=== PATIENT | female | born 1960 | race Caucasian/White ===

== ENCOUNTER → 2018-02-03 | Outpatient (CLI) | payer MEDICARE, MEDICAID ==
[~2018-02-03] MED LIST: ACHD5005 PO; AGM875T PO; ARIP5TAB13 PO; ASP81TEC PO; CHOL2000 PO; CLON2TAB3; CLON2TAB3 PO; CRANBERRY 8400MG PO; CYCL10TA45 PO; DIPH50CA33 PO; EZET10TA23 PO; FEXO60TA; GBPN600T PO; HYDR-34 PO; HYDR-3720 PO; HYDR1TAB66 PO; HYDR25CA PO; LISI5TAB PO; LORA10TA2 PO; LVT.05T PO; MELO-195; MELO-198 PO; METF-380 PO; METR500T; MIRA25TA PO; MIRA50TA PO; MIRT15TA6 PO; MIRT30TA6 PO; MMT17NA NSEACH; MTF500T; NIAC750T PO; NITR-65 PO; OMEG1CAP74 PO; PGLT30T PO; POTA10TA17 PO; PREG150C; RISP0.5T24; SIMV20TA3; SIMV40TA4 PO; TPR100T; TRAM50TA2; TRAZ50TA67; VENL37.563 PO; VENL75TA74 PO
--- NOTE | 2018-02-03 14:14 | Diagnostic Imaging Report ---
PROCEDURE: US Thyroid. TECHNIQUE: Multiple real-time grayscale images were obtained of the thyroid in various projections. INDICATION: Thyromegaly. FINDINGS: The right lobe of the thyroid measures 3.4 x 1.6 x 1.3 cm. The left lobe measures 3.4 x 1.5 x 1.1 cm. There is a solid isoechoic nodule in the inferior aspect of left lobe measuring 0.7 x 0.8 x 0.6 cm. No other discrete solid or cystic masses are appreciated. IMPRESSION: Small isoechoic nodule in the inferior aspect of the left lobe of thyroid likely an adenoma. Dictated by: Dictated on workstation # [id number]
== END ==
LOC: RAD 12:41
PROVIDERS: ATTEND Nurse Practitioner Family
DX: E04.0 Nontoxic diffuse goiter (principal)
CPT/HCPCS: 76536

== ENCOUNTER → 2018-05-15 | Outpatient (CLI) | payer MEDICARE, MEDICAID ==
--- NOTE | 2018-05-15 13:57 | Diagnostic Imaging Report ---
PROCEDURE: US Thyroid. TECHNIQUE: Multiple real-time grayscale images were obtained of the thyroid in various projections. INDICATION: Thyroid nodule. The study is performed for followup. COMPARISON: Correlation is made with prior thyroid ultrasound from 02/03/2018. FINDINGS: Right lobe of the thyroid measures 3.7 x 1.4 x 1.2 cm, and the left lobe measures 3.3 x 1.2 x 1.3 cm. Previously noted circumscribed nodule in the inferior left lobe of the thyroid is again noted measuring approximately 6 mm x 8 mm. This is stable. No new thyroid mass is seen. IMPRESSION: Stable subcentimeter nodule in the inferior left lobe of the thyroid when compared with examination three months earlier. Followup in six months could be performed to confirm stability. Dictated by: Dictated on workstation # [id number]
== END ==
LOC: RAD 12:23
PROVIDERS: ATTEND Nurse Practitioner Family
DX: E04.1 Nontoxic single thyroid nodule (principal)
CPT/HCPCS: 76536

== ENCOUNTER → 2018-10-10 | Outpatient (CLI) | payer MEDICARE, MEDICAID ==
[~2018-10-10] VITALS: Ht 157.5 cm; Wt 86.2 kg
[~2018-10-10] MED LIST changes: +CATHETER FLUSH 10 ML SYR IV PRN; +REGADENOSON 0.4 MG/5 ML SYR (LEXISCAN) IV ONE
[2018-10-10 08:00] VITALS: BP 132/77
[2018-10-10 08:08] VITALS: BP 141/64
[2018-10-10 08:09] VITALS: BP 124/68
--- NOTE | 2018-10-10 13:01 | STRESS TEST ---
DATE OF SERVICE: 10/10/2018 NUCLEAR MYOVIEW REPORT REFERRING PHYSICIAN: Timo Patel DO. SUMMARY: The patient was injected with 10.73 mCi of technetium-99 Myoview and the resting images were obtained. With peak stress level, the patient was injected with 31.0 mCi of technetium-99 Myoview and the stress images were acquired. The resting and stress images were reviewed and compared in the short axis, horizontal long axis, and vertical long axis views. Review of the images showed breast attenuation with typical female pattern. No significant ischemia or infarction was noted. SSS is 3, SDS 3, and TID value 0.87. On the gated images, the left ventricle appeared to be in normal size with mild hypokinesia at the inferior wall. Calculated ejection fraction 52%. CONCLUSION: 1. Breast attenuation with typical female pattern. Mild decreased uptake at the anterior apical segment with subtle reversibility, no significant ischemia or infarction was noted. 2. Normal left ventricular size with mild hypokinesia noted at the inferior wall. Calculated ejection fraction is 52%. Job ID: [id number] DocumentID: [id number] Dictated Date: 10/10/2018 09:56:14 Hay Rake Operator Date: 10/10/2018 13:01:09 Dictated By: ARCENIO RICE MD
== END ==
LOC: CARD 06:39
PROVIDERS: ATTEND Internal Medicine
DX: R07.9 Chest pain, unspecified (principal); R53.83 Other fatigue
CPT/HCPCS: 78452; 93017

== ENCOUNTER 2018-11-13 13:56 | Outpatient (CLI) | payer MEDICARE, MEDICAID ==
[~2018-11-13 13:56] MED LIST changes: -CATHETER FLUSH 10 ML SYR IV PRN; -REGADENOSON 0.4 MG/5 ML SYR (LEXISCAN) IV ONE
== END 2018-11-13 14:30 | disposition home or self-care (01) ==
LOC: SLEEP 13:56
PROVIDERS: ATTEND Nurse Practitioner Family
DX: G47.33 Obstructive sleep apnea (adult) (pediatric) (principal); G47.10 Hypersomnia, unspecified; R06.83 Snoring

== ENCOUNTER → 2018-12-25 | Outpatient (CLI) | payer MEDICARE, MEDICAID ==
--- NOTE | 2018-12-25 16:53 | Diagnostic Imaging Report ---
INDICATION: Fall. Wrist pain. COMPARISON: None. FINDINGS: Four radiographic views of the right wrist were obtained. There is chronic appearing deformity of the distal radius consistent with old healed fracture. There is angulation of the distal radius with the apex projecting anteriorly, also chronic in appearance. No acute appearing fracture or dislocation of the right wrist is identified. Osseous structures otherwise appear intact. Joint spaces are maintained, although there is widening of the scapholunate joint space. No unexpected radiopaque foreign bodies are seen. IMPRESSION: 1. No radiographic evidence of acute fracture or dislocation of the right wrist. 2. Chronic appearing deformity of the distal radius consistent with probable old healed fracture. 3. Abnormal widening of the scapholunate joint space suggestive of underlying ligamentous injury. Dictated by: Dictated on workstation # [id number]
== END ==
LOC: RAD 10:24
PROVIDERS: ATTEND Nurse Practitioner Family
DX: J30.9 Allergic rhinitis, unspecified (principal); M25.531 Pain in right wrist; W19.XXXA Unspecified fall, initial encounter
CPT/HCPCS: 73110

== ENCOUNTER 2019-09-23 06:07 | Outpatient (CLI) | payer MEDICARE, MEDICAID ==
[~2019-09-23] VITALS: Ht 157.5 cm; Wt 88.2 kg
[2019-09-23] MEDS ORDERED: VENL150T PO (09:39)
[2019-09-23] MEDS ORDERED: MAGN400T39 PO (09:39)
[2019-09-23] MEDS ORDERED: SIMV10TA26 PO (09:39)
[2019-09-23] MEDS ORDERED: LIRA0.6P3 SQ (09:39)
[2019-09-23] MEDS ORDERED: POTA15TA9 PO (09:39)
[2019-09-23] MEDS ORDERED: NAPR-1067 PO (09:39)
[2019-09-23] MEDS ORDERED: CHOL200078 PO (09:39)
[2019-09-23] MEDS ORDERED: DIVA125T32 PO (09:39)
[2019-09-23] MEDS ORDERED: METF-397 PO (09:39)
[2019-09-23] MEDS ORDERED: ASPI-999 PO (09:39)
[2019-09-23] MEDS ORDERED: FLDR.1T PO (09:39)
[2019-09-23] MEDS ORDERED: OXYB5TAB13 PO (09:39)
[2019-09-23] MEDS ORDERED: CYAN100092 IJ (09:39)
[2019-09-23] MEDS ORDERED: VNL75T PO (09:39)
[2019-09-23] MEDS ORDERED: LEVO50TA6 PO (09:39)
[2019-09-23] MEDS ORDERED: CLON0.5T4 PO (09:39)
[2019-09-23] MEDS ORDERED: METO50TA7 PO (09:39)
== END 2019-09-23 09:45 | disposition home or self-care (01) ==
LOC: PREOP 06:07
PROVIDERS: ATTEND Internal Medicine
DX: Z01.818 Encounter for other preprocedural examination (principal)

== ENCOUNTER 2019-09-25 08:48 | Day surgery (SDC) | payer MEDICARE, MEDICAID ==
--- NOTE | 2019-09-22 11:41 | HISTORY AND PHYSICAL ---
DATE OF SERVICE: SCREENING COLONOSCOPY SUMMARY PRIMARY CARE PHYSICIAN: Dr. Timo Patel is for primary care physician. HISTORY OF PRESENT ILLNESS: The patient is a 58-year-old white female referred for her first screening colonoscopy. She has a past history of morbid obesity, but states since the medication changes, she has lost 100 pounds over the past year and a half. She has a history of hypertension, type 2 diabetes mellitus, hyperlipidemia, bipolar depression and osteoarthritis. She reports no past history of cardiovascular disease or pulmonary disease. MEDICATIONS ON ADMISSION: 1. Metformin 500 mg daily. 2. Victoza 1.8 mg subq daily. 3. Potassium 15 mEq daily. 4. Levothyroxine 50 mcg daily. 5. Simvastatin 10 mg daily. 6. Clonazepam 0.5 mg b.i.d. weekly. 7. B12 1000 mcg injection. 8. Venlafaxine ER 225 mg daily. 9. Valproic acid 125 mg b.i.d. 10. Oxybutynin 5 mg t.i.d. 11. Naprosyn 500 mg b.i.d. 12. Baby aspirin daily. 13. Vitamin D 2000 units daily. 14. Metoprolol 50 mg at bedtime. 15. 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 PAST SURGICAL HISTORY: Significant for cholecystectomy, appendectomy and tubal ligation as well as bilateral arthroscopic knee surgery and right carpal tunnel release. SOCIAL HISTORY: She is disabled and she has no past drinking history. She quit smoking 3 years ago with a 40+ pack year previous history. FAMILY HISTORY: She is not aware of any family history for colon cancer or colon polyps. Mother living at age of 72, has diabetes, hypertension and anxiety. Father at age of 60 with complications of COPD and tobaccoism, also had diabetes and coronary artery disease. PHYSICAL EXAMINATION: GENERAL: Reveals a pleasant overweight white female in no acute distress. She is a Mallampati 3 oropharyngeal configuration. HEENT: Unremarkable. CHEST: Clear to auscultation. CARDIOVASCULAR: Reveals regular rate and rhythm without murmur, S3 or S4. ABDOMEN: Soft, supple without mass, organomegaly or tenderness. Stretch ritchie are present with a lot of skin laxity suggesting a significant weight loss. No mass or organomegaly is noted. She has some mild bilateral lower quadrant discomfort to palpation without rebound or guarding. EXTREMITIES: Reveal no cyanosis, clubbing or edema. ASSESSMENT AND PLAN: The patient is being set up for screening colonoscopy because she is estimated to be an ASA III status with multiple medical issues and history of Pott's disease. We will be doing this under anesthesia. Prep instructions with a Suprep kit were given and questions were answered. The patient is advised to hold aspirin and Naprosyn one week prior. I thank you for the referral of this pleasant lady. Job ID: [id number] DocumentID: [id number] Dictated Date: 09/22/2019 10:05:53 Tow Motor Operator Date: 09/22/2019 10:58:10 Dictated By: MAK CALLEJAS MD MTDD
[2019-09-25] VITALS (11 sets, daily range): BP systolic 92–177; BP diastolic 53–99
[~2019-09-25] VITALS: Ht 157 cm; Wt 86.3 kg
[~2019-09-25 08:48] MED LIST changes: +ASPI-999 PO; +CHOL200078 PO; +CLON0.5T4 PO; +CYAN100092 IJ; +DIVA125T32 PO; +FLDR.1T PO; +LEVO50TA6 PO; +LIRA0.6P3 SQ; +MAGN400T39 PO; +METF-397 PO; +METO50TA7 PO; +NAPR-1067 PO; +OXYB5TAB13 PO; +POTA15TA9 PO; +SIMV10TA26 PO; +VENL150T PO; +VNL75T PO
[2019-09-25] MEDS ORDERED: D5 LR IV SOLUTION 1,000 ML IV STA (08:55)
[2019-09-25] MEDS ORDERED: fentaNYL INJECTION 100 MCG/2 ML AMP IVP ONE (09:00)
[2019-09-25] MEDS ORDERED: MIDAZOLAM 5 MG/5 ML (VERSED) VIAL IV PRN (09:00)
[2019-09-25] MEDS ORDERED: MIDAZOLAM 5 MG/5 ML (VERSED) VIAL ONE (09:57)
[2019-09-25] MEDS ORDERED: LIDOCAINE JELLY 2% 6 ML SYRINGE ONE (09:57)
[2019-09-25] MEDS ORDERED: fentaNYL INJECTION 100 MCG/2 ML AMP ONE (09:58)
[2019-09-25] MEDS ORDERED: MIDAZOLAM 2 MG/2 ML (VERSED) VIAL ONE (10:11)
[2019-09-25] MEDS ORDERED: PROPOFOL INJECTION 50 ML IV ONE (10:11)
--- NOTE | 2019-09-25 10:17 | Pre-Op Note & Conscious Sedat ---
Pre-Operative Progress Note H&P Reviewed The H&P was reviewed, patient examined and no changes noted. Date H&P Reviewed: Sep 25, 2019 Time H&P Reviewed: 09:30 Conscious Sedation Pre-Proced ASA Score 3 For ASA 3 and 4: Consider anesthesia and medical clearance. Also, for patients with a history of failed moderate sedation consider anesthesia. Airway Lungs Heart ASA score ASA 1: a normal healthy patient ASA 2: a patient with a mild systemic disease (mid diabetes, controlled hypertension, obesity ASA 3: a patient with a severe systemic disease that limits activity (angina, COPD, prior Myocardial infarction) ASA 4: a patient with an incapacitating disease that is a constant threat to life (CHF, renal failure) ASA 5: a moribund patient not expected to survive 24 hrs. (ruptured aneurysm) ASA 6: a declared brain- patient whose organs are being harvested. For emergent operations, add the letter E after the classification Mallampati Classification Grade 3 Sedation Plan Analgesia, Amnesia, Plan communicated to team members, Discussed options with patient/fam, Discussed risks with patient/fam The patient is an appropriate candidate to undergo the planned procedure, sedation, and anesthesia. The patient immediately re-assessed prior to indication. MAK CALLEJAS MD Sep 25, 2019 10:17
[2019-09-25] MEDS ORDERED: LIDOCAINE JELLY 2% 6 ML SYRINGE TOP ONE (11:00)
--- NOTE | 2019-09-25 11:37 | Anesthesia-General Post-Op ---
MAC Patient Condition Mental Status/LOC: Same as Preop Cardiovascular: Satisfactory Nausea/Vomiting: Absent Respiratory: Satisfactory Pain: Controlled Complications: Absent Post Op Complications Complications None Follow Up Care/Instructions Patient Instructions None needed. Anesthesiology Discharge Order Discharge Order Patient is doing well, no complaints, stable vital signs, no apparent adverse anesthesia problems. No complications reported per nursing. EMILY العلي CRNA Sep 25, 2019 11:37
--- NOTE | 2019-09-25 15:45 | OPERATIVE REPORT ---
DATE OF SERVICE: COLONOSCOPY SUMMARY INDICATION FOR THE PROCEDURE: Screening colonoscopy. DESCRIPTION OF PROCEDURE: The patient was placed in the left lateral decubitus position. Prior to undergoing colonoscopy, digital rectal evaluation was performed. Anal sphincter tone was normal and the perianal reflexes intact. No abnormalities, no digital inspection of anal canal or distal rectal vault. The colonoscope was then inserted into the rectum and under direct visualization advanced to the cecum. The cecum was identified by identification of the ileocecal valve and cecal strap. Photographic documentation was obtained. Quality of the prep was suboptimal. There was partial cecal evaluation due to some retained stool. There was no evidence for internal or external hemorrhoids and the rectum was unremarkable. Present in the mid sigmoid colon extending to the distal descending colon were a moderate number of medium to large size diverticulum without evidence for diverticulitis. There is evidence for significant haustral hypertrophy in addition. No other sigmoid or descending colonic abnormalities were appreciated. The splenic flexure, transverse colon, hepatic flexure, ascending colon and the visualized portion of the cecum not obscured by stool were unremarkable. ASSESSMENT: Moderate diverticular disease noted throughout the majority of the sigmoid colon and distal descending colon was present without evidence for diverticulitis. No other abnormalities were noted. Considering suboptimal prep and the fact that the patient reports no family history for colon cancer, we would advocate repeat screening in 5 years. Job ID: [id number] DocumentID: [id number] Dictated Date: 09/25/2019 11:07:10 Legal Coordinator Date: 09/25/2019 15:43:31 Dictated By: MAK CALLEJAS MD
--- OUTSIDE RECORDS SUMMARY | 2019-09-29 06:15 | XMS REPORT ---
Author Author [facility] Organization [facility] Address [address] [address] Care Team Providers Care Ware Tester Name Role Phone LINDA, YONIS Unavailable LINDA, YONIS Unavailable LINDA, YONIS Unavailable Unavailable BROWN, MARSHALL K Unavailable LINDA, YONIS Unavailable zzANTONY, YONIS Unavailable ANGLETON, JERRY Unavailable ANGLETON, JERRY Unavailable ANGLETON, JERRY Unavailable ANGLETON, JERRY Unavailable Migration, Doctor Unavailable Unavailable Migration, Doctor Unavailable Unavailable DENNY VASQUEZ DNP Unavailable UnavailNELLY Brown PCP NELLY VASQUEZ DO Unavailable Unavailable GABI YIN MD Unavailable Unavailable SIMÓN RUIZ Unavailable Unavailable Migration, Doctor Unavailable Unavailable Migration, Doctor Unavailable Unavailable BROWN, MARSHALL Unavailable Unavailable BROWN, MARSHALL Unavailable Unavailable BROWN, MARSHALL Unavailable Unavailable zzANTONY, YONIS Unavailable zzANTONY, YONIS Unavailable zzANTONY, YONIS Unavailable zzANTONY, YONIS Unavailable zzANTONY, YONIS Unavailable zzANTONY, YONIS Unavailable zzANTONY, YONIS Unavailable Migration, Doctor Unavailable Unavailable Migration, Doctor Unavailable Unavailable Migration, Doctor Unavailable Unavailable JORDAN SPRING Unavailable BROWN, MARSHALL Unavailable Unavailable BROWN, MARSHALL Unavailable Unavailable BROWN, MARSHALL Unavailable Unavailable ROMEO, SURJIT Unavailable Unavailable ROMEO, SURJIT Unavailable Unavailable ROMEO, SURJIT Unavailable Unavailable Migration, Doctor Unavailable Unavailable Migration, Doctor Unavailable Unavailable Migration, Doctor Unavailable Unavailable Allergies Normalized Allergy Reported Date of Reaction(s) Care Provider Facility Allergy Type classification allergen Allergy Onset Allergy to Unclassified Adhesive agent 10-23-2012 - adhesive TIKA GREENE [place] Via Substance (1 ([id number]) PEDRO [address] Coni source.) [facility] ([id number]) DA (21 Unclassified Adhesive agent 10-23-2012 - no information no name no information sources.) Medications Current Medications Medication Ingredient Drug Dose Dates Status Sig Sig Care Class(es) (Normalized) (Original) Provid er 3 ml liraglutide GLP-1 Active no Victoza 18 no liraglutide Translation Receptor information MG/3ML name 6 mg/ml pen s: [ Agonist Subcutaneous (no injector (2 Victoza 18 Once a day phone) sources.) MG/3ML, 0.12 24h Victoza 18 Active MG/3ML] no Potassium no 10 mEq Active no Potassium no information Bicarb-Citr information information Bicarb-Citri name (3 ic Acid 10 c Acid 10 (no sources.) MEQ MEQ Orally 2 phone) times a day 1 tablet 12h Active no Vitamin D no 199909-07-19 Active take 1 Vitamin D no information 2,000 unit information [IU] 12 capsule by 2,000 unit 1 name (4 mouth once Capsule by (no sources.) daily Oral route 1 phone) time per day Aug, Active Completed/Discontinued Medications Medication Ingredient Drug Dose Dates Status Sig Sig Care Class(es) (Normalized) (Original) Provid er no Acetaminoph no 12-05-19 Complete take 1 Acetaminophe Nate information en/Hydrocod information 09 - d tablet by n/Hy drocodon Calos Stanley (1 source.) one Bitart 10-24-19 mouth every e Bitart (no (Lortab 13 four to six (Lortab phone) 10-325 Mg) hours as 10-325 Mg) 1 1 Ea Tab, 1 needed Ea Tab, 1 Ea Ea Oral Oral Q 4 - 6 Hrs Prn 12/04/08 Discontinued no Acetaminoph no 02-03-20 Complete no Acetaminophe (no information en/Hydrocod information 15 d information n/ Hydrocodon phone) (1 source.) one Bitart e Bitart (Lortab 5 (Lortab 5 Mg Mg Tablet) Tablet) 1 1 Each Each Tablet, Tablet, 5 - 5 - 325 Mg 325 Mg Oral Oral Four Times Daily as needed Discontinued no Amoxicillin no 09-13-19 Complete no Amoxicillin/ Timoth information /Clavulanat information 13 - d information Cl avulanate y D (1 source.) e Potassium 10-24-19 Potassium Stebbi (Augmentin 13 (Augmentin ns (no [phone] phone) Tablet) 1 Tablet) 1 Tab Tablet, Tab Tablet, 1 Tab Oral 1 Tab Oral Twice A Day 09/13/12 Discontinued no Aspirin no 81 mg Complete no Aspirin (no information (Aspirin Ec information d information (Aspi rin Ec phone) (1 source.) 81 Mg) 81 81 Mg) 81 Mg Mg Tabec Tabec 81 Mg ORAL Bedtime no Cholecalcif no 1999 Complete take 1 Cholecalcife (n o information gisella information [IU] d capsule by rol (Opal min phone) (1 source.) (Vitamin D) mouth once D) 2,000 2,000 Unit daily Unit Capsule Capsule 2,000 Unit ORAL Daily no Clonazepam no 2 mg 10-24-19 Complete no Clonaze markus 2 (no information 2 Mg information 13 d information Mg Tabl et, phone) (1 source.) Tablet, Not Not Applicable Applicable Discontinued no Fexofenadin no 60 mg 10-24-19 Complete no Fexofe andrews (no information e Hcl information 13 d information Hcl phone) (1 source.) (Joselin) (Joselin) 60 60 Mg Mg Tablet, Tablet, Not Not Applicable Applicable Discontinued no Hydrocodone no 02-14-20 Complete no Hydrocodone ( no information Bit/Acetami information 13 d information Bi t/Acetamin phone) (1 source.) nophen ophen (Hydrocodon (Hydrocodon- -Acetaminop Acetaminophe hen 5-500) n 5-500) 1 1 Each Each Tablet, Tablet, 5 - 5 - 500 Mg 500 Mg Oral Oral Four Times Daily as needed Discontinued no Meloxicam no 15 mg 10-24-19 Complete no Meloxica m 15 (no information 15 Mg information 13 d information Mg Tabl et, phone) (1 source.) Tablet, Not Not Applicable Applicable Discontinued no Metformin no 500 mg 10-24-19 Complete no Metformi n (no information Hcl information 13 d information Hcl phone) (1 source.) (Metformin (Metformin 500 Mg) 500 500 Mg) 500 Mg Tablet, Mg Tablet, Not Not Applicable Applicable Discontinued no Metronidazo no 500 mg 10-24-19 Complete no Metron idazol (no information le (Flagyl information 13 d information e ( Flagyl phone) (1 source.) 500 Mg) 500 500 Mg) 500 Mg Tab, Not Mg Tab, Not Applicable Applicable Discontinued no Mometasone no 34 g Complete no Mometasone (no information Furoate information d information Furoate phone) (1 source.) (Nasonex) (Nasonex) 17 17 Gm Naspr Gm Naspr 2 Spr NASAL Daily no Niacin no 750 mg Complete take 1 Niacin (no information (Niaspan) information d tablet by (Niaspan) phone) (1 source.) 750 Mg mouth at 750 Mg Tablet.sa bedtime Tablet.sa 750 Mg ORAL Bedtime no Nitrofurant no 11-29-19 Complete no Nitrofuranto Tony S information oin information 09 - d information in Jens (1 source.) Macrocrysta 10-24-19 Macrocrystal ds (no ls 13 s (Macrobid) phone) (Macrobid) 100 Mg 100 Mg Capsule, 1 Capsule, 1 Each Oral Each Oral Twice A Day 11/28/[address]-3/Dha no 4000 Complete take [address]-3/Dha/ (n o information /Epa/Fish information mg d tablets by Epa/Fi sh Oil phone) (1 source.) Oil (Fish mouth once (Fish Oil Oil 1,000 daily 1,000 Mg Mg Softgel) Softgel) 1,000 Mg 1,000 Mg Capsule Capsule 2,000 Mg ORAL Daily TAKE 2 (1,000MG) TABS no Potassium no 10 mEq Complete take 1 Potassium (no information Citrate 10 information d tablet by Citrate 10 phone) (1 source.) Meq mouth twice Meq Tablet.sa daily Tablet.sa 10 Meq ORAL Twice A Day no Pregabalin no 150 mg 10-24-19 Complete no Pregaba skylar (no information (Lyrica) information 13 d information (Lyri ca) 150 phone) (1 source.) 150 Mg Mg Capsule, Capsule, Not Not Applicable Applicable Discontinued no Risperidone no 0.5 mg 10-24-19 Complete no Risper idone (no information (Risperdal) information 13 d information (R isperdal) phone) (1 source.) 0.5 Mg 0.5 Mg Tab.rapdis, Tab.rapdis, Not Not Applicable Applicable Discontinued no Simvastatin no 20 mg 10-24-19 Complete no Simvas tatin (no information 20 Mg information 13 d information 20 Mg phone) (1 source.) Tablet, Not Tablet, Not Applicable Applicable Discontinued no Topiramate no 100 mg 10-24-19 Complete no Topiram ate (no information (Topamax) information 13 d information (Top amax) phone) (1 source.) 100 Mg 100 Mg Tablet, Not Tablet, Not Applicable Applicable Discontinued no Tramadol no 50 mg 10-24-19 Complete no Tramadol Hcl (no information Hcl 50 Mg information 13 d information 50 M g phone) (1 source.) Tablet, Not Tablet, Not Applicable Applicable Discontinued no Trazodone no 50 mg 10-24-19 Complete no Trazodon e (no information Hcl information 13 d information Hcl phone) (1 source.) (Desyrel) (Desyrel) 50 50 Mg Mg Tablet, Tablet, Not Not Applicable Applicable Discontinued Problems Active Problems Problem Normalized Date of Normalized Normalized Provider Fac ility Classification Problem(s) Problem Problem Problem Sta tus Onset/Resoluti Duration on Other upper Allergic Chronic Active [facility]IT [facility] respiratory rhinitis due [facility] of disease (4 to pollen [place] sources.) [facility] ([address]) Other upper Allergic Chronic Active [facility]JIT [facility] respiratory rhinitis, [place] [facility] of disease (4 cause [place] sources.) unspecified [place] ([address]) Other upper Allergic 09-16-2019 - Chronic Active DENNY [facility] Via respiratory rhinitis, VASQUEZ Coni disease (3 unspecified Hospital - sources.) [place] ([address]) Unclassified Body mass Chronic Active JERRY PAREDES Comm unity (20 sources.) index (BMI) 19964 [facility] 40.0-44.9, of [facility] adult [place] ([address]) Translations: [ - BMI 40.0-44.9, adult Z68.41, - BMI 40.0-44.9, adult Z68.41] Other Body mass Chronic Active JERRY PAREDES Communi ty nutritional; index ([facility]) [facility] endocrine; and 45.0-49.9, of [place] metabolic adult [place] ([address]) disorders (20 Translations: sources.) [ - BMI 45.0-49.9, adult Z68.42, - BMI 45.0-49.9, adult Z68.42] Other Care involving Episodic Active GABI YIN No t Available aftercare (2 other physical , (95899) sources.) therapy Other nervous Carpal tunnel 09-16-2019 - Chronic Active RUDOLPH GARCIA ANNAMARIA [facility] Via system syndrome , [place] disorders (10 Hospital - sources.) [place] ([address]) Nonspecific Chest pain, 09-16-2019 - Episodic Active NELLY [facility] Via chest pain (6 unspecified DO Coni VASQUEZ sources.) Hospital - [place] ([address]) Other bone Chondromalacia Episodic Active no name no inf ormation disease and musculoskeleta l deformities (2 sources.) Diabetes Diabetes 09-16-2019 - Chronic Active SIMÓN RUIZ [facility] Via mellitus mellitus SHANNON [place] without without Hospital - complication mention of [place] (25 sources.) complication, (92460) type II or unspecified type, not stated as uncontrolled Translations: [ TYPE 2 DIABETES MELLITUS WITHOUT COMPLICATIONS, DIABETES MELLITUS WITHOUT MENTION OF COMPLICATION, TYPE II OR UNSPECIFIED TYPE, NOT STATED UNCONTROLLED] Residual Hypersomnia, 09-16-2019 - Chronic Active DENNY [facility] Via codes; unspecified ZAYRA VASQUEZ unclassified Hospital - (2 sources.) [place] ([address]) Other and Lipoma of Episodic Active no name no informati on unspecified other skin and benign subcutaneous neoplasm (2 tissue sources.) Other Long-term Episodic Active GABI YIN Not Zakia ilable aftercare (2 (current) use , (62608) sources.) of other medications 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 [facility] disorders (24 diffuse goiter [facility] of sources.) Translations: Bobby [ NONTOXIC [place] ([address]) SINGLE THYROID NODULE, HYPOTHYROIDISM , UNSPECIFIED, UNSPECIFIED HYPOTHYROIDISM ] Residual Obstructive 09-16-2019 - Chronic Active DENNY [facility] Via codes; sleep apnea ZAYRA VASQUEZ unclassified (adult) Hospital - (12 sources.) (pediatric) [place] ([address]) NEGATED Open wound of Episodic Active no name no infor mation no finger(s), information (2 without sources.) mention of complication NEGATED Other and Chronic Active no name no informati on no unspecified information (6 derangement of sources.) medial meniscus Translations: [ DERANG POST LAT MENISCUS, CHONDROMALACIA PATELLAE, DERANG POST MED MENISCUS, DERANG LAT MENISCUS NOS] Other Other Chronic Active [facility] nutritional; disorders of [facility] of endocrine; and lipoid [place] metabolic metabolism [facility] ([address]8631) disorders (11 sources.) Malaise and Other fatigue 09-16-2019 - Episodic Active NELLY [facility] Via fatigue (6 DO Coni VASQUEZ sources.) Hospital - [place] ([address]) Other Other symptoms Episodic Active GABI YIN No t Available connective referable to , (40882) tissue disease joint, lower (1 source.) leg Other Pain in right 09-16-2019 - Episodic Active DENNY [facility] Via non-traumatic wrist [facility] - disorders (3 [place] sources.) ([address]) Other Prepatellar Episodic Active no name no informa tion connective bursitis tissue disease (2 sources.) Disorders of Pure Chronic Active MARSHALL BROWN Hospit al lipid hypercholester [facility] of metabolism (19 olemia [place] sources.) Translations: [facility] (65423) [ HYPERLIPIDEMIA , UNSPECIFIED, OTHER AND UNSPECIFIED HYPERLIPIDEMIA ] Immunizations Screening 09-16-2019 - Episodic Active GABI NUGENT [facility] Via and screening examination , [place] for infectious for other Hospital - disease (8 specified [place] sources.) bacterial and (19006) spirochetal diseases Other lower Snoring 09-16-2019 - Episodic Active DENNY [facility] Via respiratory ZAYRA VASQUEZ disease (5 Hospital - sources.) [place] ([address]) Sprains and Sprain of Episodic Active [facility] al strains (3 unspecified [place] [facility] of sources.) site of back [facility] (22954) Diabetes Type 2 Chronic Active [facility] mellitus with diabetes [facility] of complications mellitus with [place] (14 sources.) diabetic [facility] (52010) neuropathy, unspecified Translations: [ DIABETES MELLITUS WITH NEUROLOGICAL MANIFESTATIONS , TYPE II OR UNSPECIFIED TYPE, NOT STATED UNCONTROLLED] Chronic ulcer Ulcer of lower 09-16-2019 - Chronic Active ALEXIA E RUIZ , [facility] Via of skin (3 limb, [employer]BE [employer]ACH[employer] Coni sources.) unspecified Hospital - [place] ([address]35) External cause Unspecified 09-16-2019 - Episodic Active SUDHA IA [facility] Via codes: Fall (3 fall, initial VASQUEZLAZARA [place] sources.) encounter Hospital - [place] ([address]) Osteoarthritis Unspecified Chronic Active SURJIT ROMEO H ospital (16 sources.) osteoarthritis [place] [facility] , unspecified [facility] (36379) Translations: [ OSTEOARTHROSIS , UNSPECIFIED WHETHER GENERALIZED OR LOCALIZED, INVOLVING UNSPECIFIED SITE, OSTEOARTHROSIS , LOCALIZED, NOT SPECIFIED WHETHER PRIMARY OR SECONDARY, INVOLVING UNSPECIFIED SITE] Other diseases Venous 09-16-2019 - Episodic Active SIMÓN OSB ORN , [facility] Via of veins and (peripheral) [employer] Con[place] lymphatics (3 insufficiency, Hospital - sources.) unspecified [place] ([address]) Past or Other Problems Problem Normalized Date of Normalized Normalized Provider Fac ility Classification Problem(s) Problem Problem Problem Sta tus Onset/Resoluti Duration on NEGATED Dog bite no information no information no name no information no information (2 sources.) NEGATED Home accidents no information no information no name no information no information (2 sources.) Residual Hypersomnia, no information no information DENNY [facility] Via codes; unspecified [facility] unclassified Hospital - (3 sources.) [place] ([address]) NEGATED Other external no information no information no name no information no cause status information (2 sources.) Unclassified Strain of no information no information [facility] (3 sources.) muscle, fascia [place] of and tendon of [facility] (90859) Procedures The data below is from unstructured sources No Known procedures No Known procedures No Known procedures No Known procedures No Known procedures No Known procedures No Known procedures No Known procedures No Known procedures No Known procedures No Known procedures No Known procedures No Known proceduresNo procedure information available.No procedure information available. No Known procedures No Known procedures No Known procedures No Known procedures No Known procedures No Known procedures No Known procedures No Known procedures No Known procedures No Known procedures No Known procedures No Known procedures No Known procedures No Known procedures No Known procedures No Known procedures No Known procedures No Known procedures No Known procedures No Known procedures No Known procedures No Known procedures No Known procedures No Known procedures Immunizations Normalized Immunization Date Notes Care Provider Facili ty Immunization vaccine no information NELLY VASQUEZ [place] Via Translations: [ [address] [facility] vaccine] (10472) Results Test Name Value Interpretation Reference Range Date Time Fa cility (Normalized) (Normalized) (Medline Reference) No panel information on 2017-01-07 Anion gap 15 mmol/L (H) 3 - 11 mmol/L 01-07-2017 Not Avai lable [Moles/Vol] 09:000400 (11733) Calcium 9.4 mg/dL (no code) 8.5 - 10.2 mg/dL 01-07-2017 Not A vailable [Mass/Vol] 09:0400 (60258) Chloride 101 mmol/L (no code) 95 - 106 mmol/L 01-07-2017 Not A vailable [Moles/Vol] 09:0400 (57447) Cholesterol 196 mg/dL (no code) 180 - 200 mg/dL 01-07-2017 Not Available [Mass/Vol] 09:0400 (34720) Cholesterol in 79 mg/dL (no code) 01-07-2017 Not Availab le HDL [Mass/Vol] 09:00-0400 (10314) Cholesterol in 103 mg/dL (H) 0 - 100 mg/dL 01-07-2017 Not Available LDL [Mass/Vol] 09:00-0400 (59084) Cholesterol in 14 mg/dL (no code) 01-07-2017 Not Availab le VLDL [Mass/Vol] 09:00-0400 (49917) Cholesterol.tota 2.5 {ratio} (L) 01-07-2017 Not Avail able l/Cholesterol in 09:000400 (26271) HDL [Mass ratio] Creatinine 0.78 mg/dL (no code) 01-07-2017 Not Available [Mass/Vol] 09:00-0400 (37221) GFR/1.73 sq 77 (no code) 90 - 120 01-07-2017 Not Availa ble M.predicted MDRD mL/min/{1.73_m2} mL/min/{1.73_m2} 09:0400 (34997) (S/P/Bld) [Vol rate/Area] Glucose 98 mg/dL (no code) 60 - 125 mg/dL 01-07-2017 Not Zakia ilable [Mass/Vol] 09:000 (31877) HCO3 (P) 29 (no code) 01-07-2017 Not Available [Moles/Vol] 09:00 (12077) Osmolality Calc 290 (no code) 01-07-2017 Not Availa ble [Osmolality] 09: (27826) Potassium 4.9 mmol/L (no code) 3.7 - 5.2 mmol/L 01-07-2017 Not Available [Moles/Vol] 09:0 (69001) Sodium 140 mmol/L (no code) 135 - 145 mmol/L 01-07-2017 Not Available [Moles/Vol] 09: (00056) Triglyceride 70 mg/dL (no code) 0 - 150 mg/dL 01-07-2017 Not A vailable [Mass/Vol] 09: (52163) TSH Qn 1.75 (no code) 01-07-2017 Not Available 09: (88798) Urea nitrogen 16 mg/dL (no code) 7 - 20 mg/dL 01-07-2017 Not A vailable [Mass/Vol] 09:000 (30334) No panel information on 2017-01-01 Albumin (U) 24.0 (H) 01-01-2017 Not Available [Mass/Vol] 09:45-0400 (93724) Basophils (Bld) 0.0 10*3/uL (no code) 0 - 0.3 10*3/uL 01-01-2017 Not Available [#/Vol] 09:45-0400 (84919) Basophils/100 0.10 % (no code) 0.5 - 1 % 01-01-2017 Not Avai lable WBC (Bld) 09:450400 (80268) Eosinophils 0.2 10*3/uL (no code) 0.05 - 0.5 01-01-2017 Not Zakia ilable (Bld) [#/Vol] 10*3/uL 09:45-0400 (43143) Eosinophils/100 2.4 % (no code) 1 - 4 % 01-01-2017 Not Av ailable WBC (Bld) 09:450400 (63190) Erythrocyte 16.2 % (H) 11.6 - 14.6 % 01-01-2017 Not Av ailable distribution 09:45 (50190) width (RBC) [Ratio] Hematocrit (Bld) 45.7 % (no code) 36.1 - 50.3 % 01-01-2017 N ot Available [Volume 09: () fraction] Hemoglobin (Bld) 15.0 g/dL (no code) 12.1 - 17.2 g/dL 01-01-2017 Not Available [Mass/Vol] 09:45 (22308) Lymphocytes 1.79 10*3/uL (no code) 0.9 - 2.9 01-01-2017 Not Zakia ilable (Bld) [#/Vol] 10*3/uL 09:450400 (20553) Lymphocytes/100 22.2 % (no code) 20 - 40 % 01-01-2017 Not Av ailable WBC (Bld) 09:45 (18631) MCH (RBC) 32.9 pg (H) 27 - 31 pg 01-01-2017 Not Availab le [Entitic mass] 09:450400 (25028) MCHC (RBC) 32.8 g/dL (no code) 32 - 36 g/dL 01-01-2017 Not Avai lable [Mass/Vol] 09:450400 (84988) MCV (RBC) 100.2 fL (H) 80 - 100 fL 01-01-2017 Not Availa ble [Entitic vol] 09:450400 (87936) Monocytes (Bld) 0.5 10*3/uL (no code) 0.3 - 0.9 01-01-2017 Not Available [#/Vol] 10*3/uL 09:450400 (12594) Monocytes/100 6.3 % (no code) 2 - 8 % 01-01-2017 Not Avai lable WBC (Bld) 09:450400 (97116) Neutrophils 5.57 10*3/uL (no code) 1.7 - 7 10*3/uL 01-01-2017 N ot Available (Bld) [#/Vol] 09:450400 (69489) Neutrophils/100 69.0 % (no code) 40 - 60 % 01-01-2017 Not Av ailable WBC (Bld) 09:450 (24925) Platelet mean 11.5 fL (H) 7.2 - 11.7 fL 01-01-2017 Not Available volume (Bld) 09:45 (88650) [Entitic vol] Platelets (Bld) 189 10*3/uL (no code) 150 - 450 01-01-2017 Not Available [#/Vol] 10*3/uL 09:45 (49275) RBC (Bld) 4.56 10*6/uL (no code) 4.2 - 6.1 01-01-2017 Not Avail able [#/Vol] 10*6/uL 09:45 (42830) WBC (Bld) 8.07 10*3/uL (no code) 3.5 - 10.5 01-01-2017 Not Avai lable [#/Vol] 10*3/uL 09:45 (60220) Vital Signs Vital Sign Value Interpretation Reference Date Time Care Prov ider Facility (Normalized) (Normalized) Range BMI (Body Mass 37.52 kg/m2 (no code) 15 - 25 kg/m2 06-26-2018 K [facility] Index) 10:20-[address] [place] [address] ([address]244) BMI (Body Mass 41.25 kg/m2 (no code) 15 - 25 kg/m2 03-27-2018 K [facility] Community Index) 11:00-0400 [address] [facility] (03647) BMI (Body Mass 48.03 kg/m2 (no code) 15 - 25 kg/m2 11-20-2017 K [facility] Community Index) 11:40-0400 [address] [facility] (33087) Body 98 [degF] (no code) 97.8 - 99.0 09-24-2014 YONIS [facility] Temperature [degF] 09:50-0500 [facility] (45963) Body 99.4 [degF] (no code) 97.8 - 99.0 05-28-2014 YONIS On License Of [facility] Temperature [degF] 15:51-0500 [facility] (72834) Body 98.6 [degF] (no code) 97.8 - 99.0 02-02-2014 Doctor [facility] Temperature [degF] 15:220400 [facility] (13463) Body 98.2 [degF] (no code) 97.8 - 99.0 11-03-2013 Doctor [facility] temperature [degF] 14:550400 [facility] (26921) Body weight 115.78 kg (no code) kg 09-24-2014 YONIS [facility]ity 09:500500 [facility] (93646) Body weight 113.06 kg (no code) kg 05-28-2014 YONIS Co [facility]ity 15:510500 [facility] (79819) Body weight 110.85 kg (no code) kg 02-02-2014 Doctor Co [facility]munity 15:0400 [facility] (83235) Body weight 111.81 kg (no code) kg 11-03-2013 Doctor Co [facility]munity 14:550400 [facility] (55223) Height 158.75 cm (no code) cm 06-26-2018 [facility] 10:20-[address] [place] [address] ([id number]) Height 158.75 cm (no code) cm 03-27-2018 [facility] 11:00-[address] [place] [address] (38185) Height 158.75 cm (no code) cm 11-20-2017 [facility] 11:40-[address] [place] [address] ([id number]) Height 158.75 cm (no code) cm 09-24-2014 YONIS [facility] 09:50-0500 [facility] (42509) Height 158.75 cm (no code) cm 05-28-2014 YONIS Commu nity 15:51-0500 [facility] (77713) Height 158.75 cm (no code) cm 02-02-2014 Doctor Adriano santana 15:22-0400 Migration [facility] (83857) Weight 94.58 kg (no code) kg 06-26-2018 JERRY PAREDES On License Of [facility] 10:20-[address] [place] [address] ([id number]) Weight 103.97 kg (no code) kg 03-27-2018 [facility] 11:00-0400 [address] [facility] (52902) Weight 121.07 kg (no code) kg 11-20-2017 [facility] 11:40-[address] [place] [address] ([id number]) Interventions No Information Plan of Treatment Normalized Care Care Detail Care Activity Date Care Provider F acility Activity (PSY-FU-20) [facility] 10-23-2018 JERRY PAREDES 213[address] Pending Sale To [facility] F/U 20 [facility] ([id number]) Goals No Information Social History The data below is from unstructured sources History Response Recorde d Date/Time Alcohol Use Denies Use 0 09/13/12 1:12pm Recreational Drug Use Y clean for years 09/13/12 1:12pm Sexually Transmitted Disease N 09/13/12 1:12pm Functional Status The data below is from unstructured sourcesNo functional status information available. Mental Status No Information Encounters Encounter Normalized Encounter Encounter Diagnosis Care Provi chepe Organization Date Type 06-26-2018 (PSY-FU-20) Psychiatry no information JERRY SOW N ([facility] (no phone) 06-26-2018 - 06-26-2018 03-27-2018 (PSY-FU-20) Psychiatry Major depressive JERRY FELDER (no [facility] - F/U 20 min disorder, single phone) JERRY QUAN (no phone) 03-27-2018 episode, unspecified (no phone) - 03-27-2018 11-20-2017 (PSY-FU-20) Psychiatry Major depressive JERRY FELDER (no [facility] - F/U 20 min disorder, single phone) JERRY QUAN (no phone) 11-20-2017 episode, unspecified (no phone) - 11-20-2017 08-15-2017 (PSY-FU-20) Psychiatry Major depressive JERRY FELDER (no [facility] - F/U 20 min disorder, single phone) JERRY QUAN (no phone) 08-15-2017 episode, unspecified (no phone) - 08-15-2017 02-13-2017 (PSY-FU-20) Psychiatry Generalized anxiety YONIS poliNancyKERRIEPARAMJIT (no [facility] - F/U 20 min disorder phone) (no phone) 02-13-2017 - 02-13-2017 11-14-2016 (PSY-FU-20) Psychiatry Generalized anxiety YONIS SherlynONY (no [facility] - F/U 20 min disorder phone) (no phone) 11-14-2016 - 11-14-2016 08-01-2016 (PSY-FU-20) Psychiatry Generalized anxiety YONIS Jone (no [facility] - [facility]U [facility] min disorder phone) (no phone) 08-01-2016 - 08-01-2016 04-04-2016 (PSY-FU-20) Psychiatry Generalized anxiety YONIS SherlynONY (no [facility] - F[facility]U 20 min disorder phone) (no phone) 04-04-2016 - 04-04-2016 01-04-2016 (PSY-FU-20) Psychiatry Generalized anxiety YONIS SherlynONY (no [facility] - F[facility]U 20 min disorder phone) (no phone) 01-04-2016 - 01-04-2016 10-05-2015 (PSY-FU-20) Psychiatry Unspecified mood YONIS Qureshi KERRIEPARAMJIT (no [facility] - F/U 20 min [affective] disorder phone) (no p melissa) 10-05-2015 - 10-05-2015 07-08-2015 (PSY-FU-20) Psychiatry Major depressive YONIS Qureshi KERRIEONY (no [facility] - F/U 20 min disorder, single phone) (no phone ) 07-08-2015 episode, unspecified - 07-08-2015 03-30-2015 (PSY-FU-20) Psychiatry Anxiety state, YONIS YUSUF (no [facility] - F/U 20 min unspecified phone) (no phone) 03-30-2015 - 03-30-2015 12-24-2014 (PSY-FU-20) Psychiatry Major depressive YONIS WOODS (no [facility] - F/U 20 min affective disorder, phone) (no ph one) 12-24-2014 recurrent episode, - severe, without 12-24-2014 mention of psychotic behavior 05-16-2017 (PSY-INTAKE) Major depressive [facility]ERR[facility]EDES [facility] - Psych[facility]ry Intake disorder, single phone) JERRY LEÓNYeison DELUCA (no phone) 05-16-2017 episode, unspecified (no phone) - 05-16-2017 06-26-2018 (TELEHEALTH) Major depressive JERRY PAREDES (no [facility] - Telehealth disorder, single phone) JERRY KADEEM (no phone) 06-26-2018 episode, unspecified (no phone) - 06-26-2018 02-10-2018 [facility] no information [facility]EDES [facility] - phone) JERRY QUAN (no phone) 02-10-2018 (no phone) - 02-10-2018 07-04-2016 [facility] no information YONIS RAGLAND (no [facility] - phone) (no phone) 07-04-2016 - 07-04-2016 04-05-2016 [facility] no information YONIS RAGLAND ([facility] - phone) (no phone) 04-05-2016 - 04-05-2016 01-04-2016 [facility] no information YONIS RAGLAND (no [facility] - phone) (no phone) 01-04-2016 - 01-04-2016 12-01-2015 [facility] no information YONIS RAGLAND (no [facility] - phone) (no phone) 12-01-2015 - 12-01-2015 10-31-2015 [facility] no information YONIS RAGLAND (no [facility] - phone) (no phone) 10-31-2015 - 10-31-2015 10-03-2015 [facility] no information YONIS RAGLAND (no [facility] - phone) (no phone) 10-03-2015 - 10-03-2015 09-05-2015 [facility] no information YONIS Chiang [place] (no [facility] - phone) (no phone) 09-05-2015 - 09-05-2015 08-08-2015 [facility] no information YONIS RAGLAND (no [facility] - phone) (no phone) 08-08-2015 - 08-08-2015 07-08-2015 [facility] no information YONIS RAGLAND (no [facility] - phone) (no phone) 07-08-2015 - 07-08-2015 06-29-2015 [facility] no information YONIS RAGLAND (no [facility] - phone) (no phone) 06-29-2015 - 06-29-2015 05-19-2015 [facility] no information YONIS RAGLAND (no [facility] - phone) (no phone) 05-19-2015 - 05-19-2015 04-19-2015 [facility] no information YONIS RAGLAND (no [facility] - phone) (no phone) 04-19-2015 - 04-19-2015 03-10-2015 [facility] no information YONIS RAGLAND (no [facility] - phone) (no phone) 03-10-2015 - 03-10-2015 01-31-2015 [facility] no information YONIS Chiang [place] (no [facility] - phone) (no phone) 01-31-2015 - 01-31-2015 12-29-2014 [facility] no information YONIS RAGLAND (no [facility] - phone) (no phone) 12-29-2014 - 12-29-2014 11-02-2014 [facility] no information Doctor Migrati on (no [facility] - phone) (no phone) 11-02-2014 - 11-02-2014 11-01-2014 [facility] no information Doctor Migrati on (no [facility] - phone) (no phone) 11-01-2014 - 11-01-2014 10-13-2014 [facility] no information YONIS RAGLAND (no [facility] - phone) Doctor (no phone) 10-13-2014 [facility] (no phone) - YONIS Becerril (no 10-13-2014 phone) Doctor [facility] (no phone) YONIS Becerril (no phone) Doctor [facility] (no phone) 09-24-2014 [facility] no information YONIS RAGLAND (no [facility] - phone) Doctor (no phone) 09-24-2014 [facility] (no phone) - YONIS Becerril (no 09-24-2014 phone) Doctor [facility] (no phone) Doctor [facility] (no phone) YONIS Becerril (no phone) 09-20-2014 [facility] no information Doctor Migrati on (no [facility] - phone) YONIS (no phone) 09-20-2014 Jone (no phone) - YONIS Becerril (no 09-20-2014 phone) Doctor [facility] (no phone) YONIS Becerril (no phone) Doctor [facility] (no phone) 09-15-2014 [facility] no information YONIS RAGLAND (no [facility] - phone) Doctor (no phone) 09-15-2014 [facility] (no phone) - Doctor [facility] (no 09-15-2014 phone) YONIS Becerril (no phone) YONIS Becerril (no phone) Doctor [facility] (no phone) 09-13-2014 [facility] no information Doctor Migrati on (no [facility] - phone) (no phone) 09-13-2014 - 09-13-2014 08-17-2014 [facility] no information Doctor Migrati on (no [facility] - phone) YONIS (no phone) 08-17-2014 Jone (no phone) - YONIS Becerril (no 08-17-2014 phone) Doctor [facility] (no phone) Doctor [facility] (no phone) YONIS Becerril (no phone) 07-19-2014 [facility] no information Doctor Migrati on (no [facility] - phone) YONIS (no phone) 07-19-2014 Jone (no phone) - YONIS Becerril (no 07-19-2014 phone) Doctor [facility] (no phone) Doctor [facility] (no phone) YONIS Becerril (no phone) 06-18-2014 [facility] no information YONIS RAGLAND (no [facility] - phone) Doctor (no phone) 06-18-2014 [facility] (no phone) - YONIS Becerril (no 06-18-2014 phone) Doctor [facility] (no phone) YONIS Becerril (no phone) Doctor [facility] (no phone) 05-28-2014 [facility] no information YONIS RAGLAND (no [facility] - phone) Doctor (no phone) 05-28-2014 [facility] (no phone) - YONIS Becerril (no 05-28-2014 phone) Doctor [facility] (no phone) YONIS Becerril (no phone) Doctor [facility] (no phone) 05-21-2014 [facility] no information JORDAN SPRING (no [facility] - phone) Doctor (no phone) 05-21-2014 [facility] (no phone) - JORDAN SPRING (no 05-21-2014 phone) Doctor [facility] (no phone) JORDAN SPRING (no phone) Doctor [facility] (no phone) 05-03-2014 [facility] no information Doctor Migrati on (no [facility] - phone) (no phone) 05-03-2014 - 05-03-2014 02-02-2014 [facility] no information Doctor Migrati on (no [facility] - phone) (no phone) 02-02-2014 - 02-02-2014 2013 [facility] no information Doctor Migrati on (no [facility] - phone) (no phone) 2013 - 2013 11-16-2013 [facility] no information Doctor Migrati on (no [facility] - phone) (no phone) 11-16-2013 - 11-16-2013 11-10-2013 [facility] no information Doctor Migrati on (no [facility] - phone) (no phone) 11-10-2013 - 11-10-2013 11-03-2013 [facility] no information Doctor Migrati on ([facility] (no phone) 11-03-2013 - 11-03-2013 09-24-2013 [facility] no information Doctor Migrati on (no [facility] - phone) (no phone) 09-24-2013 - 09-24-2013 08-04-2013 [facility] no information Doctor Migrati on (no [facility] - phone) (no phone) 08-04-2013 - 08-04-2013 06-22-2013 [facility] no information Doctor Migrati on (no [facility] - phone) (no phone) 06-22-2013 - 06-22-2013 05-25-2013 [facility] no information Doctor Migrati on ([facility] phone[facility] (no phone) 05-25-2013 - 05-25-2013 04-02-2013 [facility] no information GINA Lopez R (no [facility] - phone) (no phone) 04-02-2013 - 04-02-2013 02-25-2013 [facility] no information GINA Lopez R (no [facility] - phone) (no phone) 02-25-2013 - 02-25-2013 01-29-2013 [facility] no information GINA Lopez R (no [facility] - phone) (no phone) 01-29-2013 - 01-29-2013 01-02-2013 [facility] no information GINA Lopez R (no [facility] - phone) (no phone) 01-02-2013 - 01-02-2013 12-30-2012 [facility] no information GINA Loepz R (no [facility] - phone) (no phone) 12-30-2012 - 12-30-2012 12-17-2012 [facility] no information GINA Lopez R (no [facility] - phone) (no phone) 12-17-2012 - 12-17-2012 12-04-2012 [facility] no information GINA Lopez R (no [facility] - phone) (no phone) 12-04-2012 - 12-04-2012 10-04-2012 [facility] no information GINA Lopez R (no [facility] - phone) (no phone) 10-04-2012 - 10-04-2012 07-11-2012 [facility] no information GINA Lopez R (no [facility] - phone) Doctor (no phone) 07-11-2012 [facility] (no phone) - GINA Hills (no 07-11-2012 phone) Doctor [facility] (no phone) GINA Hills (no phone) Doctor [facility] (no phone) 07-07-2012 [facility] no information GINA Lopez R (no [facility] - phone) Doctor (no phone) 07-07-2012 [facility] (no phone) - GINA Hills (no 07-07-2012 phone) Doctor [facility] (no phone) GINA Hills (no phone) Doctor [facility] (no phone) 05-21-2012 [facility] no information Doctor Migrati on (no [facility] - phone) GINA Hills (no phone) 05-21-2012 (no phone) Doctor - [facility] (no phone) 05-21-2012 GINA Hills (no phone) Doctor Migration (no phone) GINA Hills (no phone) 05-02-2012 [facility] no information GINA Lopez R (no [facility] - phone) Doctor (no phone) 05-02-2012 [facility] (no phone) - GINA Hills (no 05-02-2012 phone) Doctor [facility] (no phone) GINA Hills (no phone) Doctor Migration (no phone) 04-08-2012 [facility] no information GINA Lopez R (no [facility] - phone) (no phone) 04-08-2012 - 04-08-2012 01-25-2012 [facility] no information DENNY GUSMAN SON (no [facility] - phone) (no phone) 01-25-2012 - 01-25-2012 01-21-2012 [facility] no information GINA Lopez R ([facility] (no phone) 01-21-2012 - 01-21-2012 01-02-2012 [facility] no information GINA Lopez R (no [facility] - phone) (no phone) 01-02-2012 - 01-02-2012 12-19-2011 [facility] no information Doctor Migrati on (no [facility] - phone) (no phone) 12-19-2011 - 12-19-2011 12-18-2011 [facility] no information GINA Lopez R (no [facility] - phone) (no phone) 12-18-2011 - 12-18-2011 12-12-2011 [facility] no information GINA Lopez R (no [facility] - phone) (no phone) 12-12-2011 - 12-12-2011 11-26-2011 [facility] no information GINA Lopez R (no [facility] - phone) (no phone) 11-26-2011 - 11-26-2011 10-01-2011 [facility] no information GINA Lopez R (no [facility] - phone) (no phone) 10-01-2011 - 10-01-2011 09-07-2011 [facility] no information GINA Galvin (no [facility] - phone) (no phone) 09-07-2011 - 09-07-2011 06-08-2011 [facility] no information Doctor Migrati on (no [facility] - phone) (no phone) 06-08-2011 - 06-08-2011 03-09-2011 [facility] no information Doctor Migrati on (no [facility] - phone) (no phone) 03-09-2011 - 03-09-2011 07-11-2010 [facility] no information Doctor Migrati on (no [facility]) (no phone) 07-11-2010 - 07-11-2010 06-26-2010 [facility] no information Doctor Migrati on (no [facility]) (no phone) 06-26-2010 - 06-26-2010 05-12-2010 [facility] no information Doctor Migrati on (no [facility] - phone) (no phone) 05-12-2010 - 05-12-2010 07-04-2009 [facility] no information Doctor Migrati on (no [facility] - phone) (no phone) 07-04-2009 - 07-04-2009 06-13-2009 [facility] no information Doctor Migrati on (no [facility]) (no phone) 06-13-2009 - 06-13-2009 05-30-2009 [facility] no information Doctor Migrati on (no [facility]) (no phone) 05-30-2009 - 05-30-2009 05-15-2018 Patient encounter no information no name (no phone) no organization name (no phone) 02-03-2018 Patient encounter no information no name (no phone) no organization name (no phone) NEGATED Patient encounter no information no name (no phone) no organization name 11-20-2017 (no phone) 08-15-2017 Patient encounter no information no name (no phone) no organization name (no phone) 02-02-2015 Patient encounter no information no name (no phone) no organization name - (no phone) 02-02-2015 01-28-2015 Patient encounter no information no name (no phone) no organization name (no phone) 05-03-2014 Patient encounter no information no name (no phone) no organization name - (no phone) 05-05-2014 02-18-2013 Patient encounter no information no name (no phone) no organization name - (no phone) 02-18-2013 02-13-2013 Patient encounter no information no name (no phone) no organization name (no phone) 10-29-2012 Patient encounter no information no name (no phone) no organization name - (no phone) 10-29-2012 10-23-2012 Patient encounter no information no name (no phone) no organization name (no phone) 12-25-2018 Patient encounter no information DENNY Calos GONCALVESLIVA N [facility] procedure DNP (no phone) [facility] (no phone) 11-13-2018 Patient encounter no information DENNY BROWN P [facility] - procedure VASQUEZ Work Phone: [facility] 11-13-2018 DENNY (no phone) Calos VASQUEZ DNP (no phone) 10-10-2018 Patient encounter no information no name (no phone) no organization name procedure (no phone) 10-10-2018 Patient encounter no information NELLY VASQUEZ DO [facility] procedure (no phone) [facility] (no phone) 06-26-2018 Patient encounter no information no name (no phone) no organization name procedure (no phone) 05-15-2018 Patient encounter no information DENNY Calos SULLIVA N [facility] procedure DNP (no phone) [facility] (no phone) 02-03-2018 Patient encounter no information DENNY L SULLIVA N [facility] procedure DNP (no phone) [facility] (no phone) 11-06-2017 Patient encounter no information no name (no phone) no organization name - procedure (no phone) 11-07-2017 09-03-2017 Patient encounter no information no name (no phone) no organization name - procedure (no phone) 09-04-2017 08-02-2017 Patient encounter no information no name (no phone) no organization name - procedure (no phone) 08-03-2017 05-29-2017 Patient encounter no information no name (no phone) no organization name - procedure (no phone) 05-30-2017 01-07-2017 Patient encounter no information no name (no phone) no organization name - procedure (no phone) 01-08-2017 01-01-2017 Patient encounter no information no name (no phone) no organization name - procedure (no phone) 01-02-2017 02-02-2015 Patient encounter no information GABI Hilario [facility] - procedure (no phone) [facility] 02-02-2015 (no phone) 01-28-2015 Patient encounter no information GABI Hilario [facility] procedure (no phone) [facility] (no phone) 05-03-2014 Patient encounter no information SIMÓN Hicks [facility] - procedure (no phone) [facility] 05-05-2014 (no phone) 09-02-2018 Telephone encounter Major depressive JERRY KADEEM (no [facility] - disorder, single phone) (no phone) 09-02-2018 episode, unspecified - 09-02-2018 08-04-2018 Telephone encounter no information JERRYAurelia QUAN (n o [facility] - phone) (no phone) 08-04-2018 - 08-04-2018 07-21-2018 Telephone encounter Major depressive JERRY KADEEM (no [facility] - disorder, single phone) (no phone) 07-21-2018 episode, unspecified - 07-21-2018 03-31-2018 Telephone encounter Major depressive JERRY PAREDES (no [facility] - disorder, single phone) JERRY KADEEM (no kim ne) 03-31-2018 episode, unspecified (no phone) - 03-31-2018 09-16-2019 no information Other specified no name (no phone) no organization name pre-operative (no phone) examination NEGATED no information Other specified no name (no phone) no organization name pre-operative (no phone) examination Medical Equipment No Information Payers Normalized Payer Value Unknown [id number]) Private Health Insurance no information Unknown [id number]) Medicare no information History general Narrative - Reported Note Type Note Facility History general Narrative - Reported Type Medical diabetes type II History Medical hypercholesterolemia History Medical hypertriglyceridemia History Medical peripheral neuropathy (bila teral LEs) History Surgical Right hand carpal tunnel surgery 02/07 15 History Surgical gallbladder History Surgical tubal ligation History Surgical appendectomy History Surgical hiatal hernia History Surgical bilateral arthroscopic knee s History Hospitaliz surgeries ation History [facility] unit for depression 2003 [facility] ([id number]) Summary Purpose eClinicalWorks SubmissioneClinicalWorks SubmissioneClinicalWorks SubmissioneClinicalWorks SubmissioneClinicalWorks SubmissioneClinicalWorks SubmissioneClinicalWorks Submission Advance Directives Directive Response Recor ded Date Advance Directives N 7:14am Health Care Power of Telephone Operator Chief N 02/18/13 7:14am Organ Donor N 02/18/13 7 :14am Directive Response Recor ded Date/Time Advance Directives No 7:03am Health Care Power of Telephone Operator Chief No 02/02/15 7:03am Organ Donor No 02/02/15 7:03am Discharge Instructions No hospital discharge instruction information available. Additional Source Comments This clinical document has been generated using [employer] software that has been certified by the Office of the National Coordinator for Health Information Technology (ONC 15.99.04.3023.Diam.[id number]) and the National Committee for Hem Marker (NCQA, as an eMeasure certified technology). FOR RECORDS PERTAINING TO PATIENTS WHO ARE OR HAVE BEEN ENROLLED IN A CHEMICAL D EPENDENCY/SUBSTANCE ABUSE PROGRAM, SOME INFORMATION MAY BE OMITTED. This clinica l summary was aggregated from multiple sources. Caution should be exercised in using it in the provision of clinical care. This summary normalizes information from multiple sources, and as a consequence, information in this document may ma terially change the coding, format and clinical context of patient data. In barber tion, data may be omitted in some cases. CLINICAL DECISIONS SHOULD BE BASED ON T HE PRIMARY CLINICAL RECORDS. [employer] provides no warranty or guara ntee of the accuracy or completeness of information in this document.The followi ng information is based on time limited clinical information UNRECOGNIZED CONTENT PROVIDED BELOW FOR UNRECOGNIZED SECTION MEDICAL (GENERAL) HISTORY Type Description Date Medical History diabetes type II Medical History hypercholesterolemia Medical History hypertriglyceridemia Medical History peripheral neuropath y (bilateral LEs) Surgical History Right hand carpal t unnel surgery 01/2015 Surgical History gallbladder Surgical History tubal ligation Surgical History appendectomy Surgical History hiatal hernia Surgical History bilateral arthrosco pic knees Hospitalization History surgeries Hospitalization History [facility] unit for depression 2003 UNRECOGNIZED CONTENT PROVIDED BELOW FOR UNRECOGNIZED SECTION REASON FOR VISIT gwendolyn aguillon f/u. Diamante HARRISON f/[facility] Anastacia, [id number]
--- OUTSIDE RECORDS SUMMARY | 2019-09-29 06:16 | XMS REPORT ---
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 Active 52376170 Problem Major depressive disorder, r ecurrent episode, severe, without mention of psychotic behavior 296.33 Active 56843530 Problem Depression, major, recurrent, moderate F33.1 Active [id number] ALLERGIES No Information ENCOUNTERS Encounter Location Date Diagnosis [place] [address] [place] [id number] [address] [place] [address] Aug, Major depression F32.9 [place] [address] [place] [id number] [address] [place] [address] Jul, [place] [address] [place] [id number] [address] [place] [address] Jun, Major depression F32.9 [place] [address] [place] [id number] [address] [place] [address] Jun, Major depression F32.9 and G eneralized anxiety disorder F41.1 [place] [address] [facility] [id number] [address] [place] [address] Mar, Major depression F32.9 [place] [address] [place] [id number] [address] [place] [address] Mar, Major depression F32.9 ; Gen eralized anxiety disorder F41.1 and BMI 40.0-44.9, adult Z68.41 [place] [address] [facility] [id number] [address] [place] [address] Jan, [facility] [address] [facility] [id number] [address] [place] [address] November, Major depression F32.9 ; Gen eralized anxiety disorder F41.1 and BMI 45.0-49.9, adult Z68.42 [facility] [address] [facility] [id number] [address] [place] [address] Jul, Major depression F32.9 ; Gen eralized anxiety disorder F41.1 and BMI 45.0-49.9, adult Z68.42 [facility] [address] [facility] [id number] [address] [place] [address] Apr, Major depression F32.9 and G eneralized anxiety disorder F41.1 [facility] [address] [facility] [id number] [address] [place] [address] Jan, Generalized anxiety disorder F41.1 and Depression, major, recurrent, moderate F33.1 [facility] [address] [facility] [id number] [address] [place] [address] Oct, Generalized anxiety disorder F41.1 and Major depression F32.9 [facility] [address] [facility] [id number] [address] [place] [phone] Jul, Generalized anxiety disorder F41.1 and Depression, major, recurrent, moderate F33.1 [facility] [address] [facility] [id number] [address] [place] [phone] Jun, [facility] [address] [facility] [id number] [address] [place] [address] Mar, [facility] [address] [place] [id number] [address] [place] [id number] 14 Mar, 2016 Generalized anxiety disorder F41.1 and Major depression F32.9 [facility] [address] [facility] [id number] [address] [place] [address] Dec, [facility] [address] [id number] [address] [place] [id number] 15 Dec, 2015 Generalized anxiety disorder F41.1 and Major depression F32.9 [facility] [address] [id number] [address] [place] [address] November, [facility] [address] [id number] [address] [place] [phone] Oct, [facility] [address] [id number] [address] [place] [id number] 16 Sep, 2015 Unspecified mood [affective] disorder F39 ; Generalized anxiety disorder F41.1 and Major depression F32.9 [facility] [address] [id number] [address] [place] [address] Sep, [facility] [address] [id number] [address] [place] [phone] Aug, [facility] [address] [id number] [address] [place] [address] Jul, [facility] [address] [id number] [address] [place] [address] Jul, [facility] [address] [id number] [address] [place] [address] Jun, [facility] [address] [id number] [address] [place] [address] Jun, Major depression F32.9 ; Gen eralized anxiety disorder F41.1 and Unspecified mood [affective] disorder F39 [facility] [address] [id number] [address] [place] [address] Jun, [facility] [address] [id number] [address] [place] [address] Apr, [facility] [address] [id number] [address] [place] [address] Mar, [facility] [address] [id number] [address] [place] [address] Mar, Anxiety 300.00 and Major dep ressive disorder, recurrent episode, severe 296.33 [facility] [address] [facility] [id number] [address] [place] [address] Feb, [facility] [address] [facility] [id number] [address] [place] [id number] Jan, [facility] [address] [facility] [id number] [address] [place] [phone] Dec, [facility] [address] [facility] [id number] [address] [place] [address] Dec, [facility] [address] [facility] [id number] [address] [place] [address] Dec, Major depressive disorder, r ecurrent episode, severe, without mention of psychotic behavior 296.33 ; Mood disorder 296.90 and Anxiety disorder, unspecified 300.00 [facility] [address] [facility] [id number] [address] [place] [address] Oct, [facility] [address] [facility] [id number] [address] [place] [phone] Oct, [facility] [address] [facility] [id number] [address] [place] [phone] Sep, [facility] [address] [facility] [id number] [address] [place] [phone] Sep, [facility] [address] [facility] [id number] [address] [place] [address] Sep, [facility] [address] [facility] [id number] [address] [place] [address] Sep, [facility] [address] [facility] [id number] [address] [place] [address] Sep, [facility] [address] [facility] [id number] [address] [place] [address] Sep, [facility] [address] [facility] [id number] [address] [place] [address] Aug, [facility] [address] [id number] [address] [place] [address], [place] [address] Aug, [facility] [address] [id number] [address] [place] [address], [place] [address] Aug, [facility] [address] [id number] [address] [place] [address], [place] [address] Jul, [facility] [address] [id number] [address] [place] [address], [place] [address] Jul, [facility] [address] [id number] [address] [place] [address], [place] [address] Jun, [facility] [address] [id number] [address] [place] [address], [place] [address] Jun, [facility] [address] [id number] [address] [place] [address], [place] [address] May, [facility] [address] [id number] [address] [place] [address], [place] [address] May, [facility] [address] [id number] [address] [place] [address], [place] [address] May, [facility] [address] [id number] [address] [place] [address], [place] [address] May, [facility] [address] [id number] [address] [place] [address], [place] [address] Apr, [facility] [address] [id number] [address] [place] [address], [place] [address] Apr, [facility] [address] [id number] [address] [place] [address], [place] [address] Apr, [facility] [address] [id number] [address] [place] [address], [place] [address] Apr, [facility] [address] [id number] [address] [place] [address], [place] [address] Apr, [facility] [address] [id number] [address] [place] [address], [place] [address] Apr, [facility] [address] [id number] [address] [place] [address], [place] [address] Jan, [facility] [address] [id number] [address] [place] [address], [place] [address] Jan, [facility] [address] [id number] [address] [place] [address], [place] [address] November, [facility] [address] [id number] [address] [place] [address], [place] [address] November, [facility] [address] [id number] [address] [place] [address], [place] [address] Oct, [facility] [address] [id number] [address] [place] [address], [place] [address] Oct, [facility] [address] [id number] [address] [place] [address], [place] [address] Oct, [facility] [address] [id number] [address] [place] [address], [place] [address] Oct, [facility] [address] [id number] [address] [place] [address], [place] [address] Oct, [facility] [address] [id number] [address] [place] [address], [place] [address] Oct, [facility] [address] [id number] [address] [place] [address], [place] [address] Sep, [facility] [address] [id number] [address] [place] [address], [place] [address] Sep, [facility] [address] [id number] [address] [place] [address], [place] [address] Jul, [facility] [address] [id number] [address] [place] [address], [place] [address] Jul, [facility] [address] [id number] [address] [place] [address], [place] [address] Jun, [facility] [address] [id number] [address] [place] [address], [place] [address] Jun, [facility] [address] [id number] [address] [place] [address], [place] [address] May, [facility] [address] [id number] [address] [place] [address], [place] [address] May, [facility] [address] [id number] [address] [place] [address], [place] [address] Mar, [facility] [address] [id number] [address] [place] [address], [place] [address] Feb, [facility] [address] [id number] [address] [place] [address], [place] [address] Jan, [facility] [address] [id number] [address] [place] [address], [place] [address] Dec, [facility] [address] [id number] [address] [place] [address], [place] [address] Dec, [facility] [address] [id number] [address] [place] [address], [place] [address] November, [facility] [address] [id number] [address] [place] [address], [place] [address] November, [facility] [address] [id number] [address] [place] [address], [place] [address] Sep, [facility] [address] [id number] [address] [place] [address], [place] [address] Jun, [facility] [address] [id number] [address] [place] [address], [place] [address] Jun, [facility] [address] [id number] [address] [place] [address], [place] [address] Jun, [facility] [address] [id number] [address] [place] [address], [place] [address] Jun, [facility] [address] [id number] [address] [place] [address] Apr, [facility] [address] [id number] [address] [place] [address], [place] [address] Apr, [facility] [address] [id number] [address] [place] [address], [place] [address] Apr, [facility] [address] [id number] [address] [place] [address], [place] [address] Apr, [facility] [address] [id number] [address] [place] [address], [place] [address] Mar, [facility] [address] [id number] [address] [place] [address], [place] [address] Jan, [facility] [address] [id number] [address] [place] [address], [place] [address] Jan, [facility] [address] [id number] [address] [place] [address], [place] [address] Dec, [facility] [address] [id number] [address] [place] [address], [place] [address] November, [facility] [address] [id number] [address] [place] [address], [place] [address] November, [facility] [address] [id number] [address] [place] [address], [place] [address] November, [facility] [address] [id number] [address] [place] [address], [place] [address] November, [facility] [address] [id number] [address] [place] [address], [place] [address] Sep, [facility] [address] [id number] [address] [place] [address], [place] [address] Aug, [facility] [address] [id number] [address] [place] [address], [place] [address] May, [facility] [address] [id number] [address] [place] [address], [place] [address] May, [facility] [address] [id number] [address] [place] [address] Feb, [facility] [address] [id number] [address] [place] [address] Jun, [facility] [address] [id number] [address] [place] [address] Jun, [facility] [address] [facility] [id number] [address] [place] [address] Apr, [facility] [address] [facility] [id number] [address] [place] [address] Jun, [facility] [address] [facility] [id number] [address] [place] [address] May, [facility] [address] [facility] [id number] [address] [place] [address] May, IMMUNIZATIONS No Known Immunizations SOCIAL HISTORY Never Assessed REASON FOR VISIT PLAN OF CARE VITAL SIGNS MEDICATIONS Unknown Medications RESULTS No Results PROCEDURES No Known procedures INSTRUCTIONS MEDICATIONS ADMINISTERED No Known Medications MEDICAL (GENERAL) HISTORY Type Description Date Medical History diabetes type II Medical History hypercholesterolemia Medical History hypertriglyceridemia Medical History peripheral neuropathy (bilateral LEs) Surgical History Right hand carpal tunnel surgery 01/2015 Surgical History gallbladder Surgical History tubal ligation Surgical History appendectomy Surgical History hiatal hernia Surgical History bilateral arthroscopic knees Hospitalization History surgeries Hospitalization History [facility] unit for depression 200 4
--- OUTSIDE RECORDS SUMMARY | 2019-09-29 06:16 | XMS REPORT ---
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 .42 Active 85232322 Problem Major depressive disorder, r ecurrent episode, severe, without mention of psychotic behavior 296.33 Active 64599272 Problem Depression, major, recurrent, moderate F33.1 Active 82896150 ALLERGIES No Information ENCOUNTERS Encounter Location Date Diagnosis [place] [address] [address] Aug, Major depression F32.9 [place] [address] [address] Jul, [place] [address] [address] Jun, Major depression F32.9 [place] [address] [address] Jun, Major depression F32.9 and Generalized a nxiety disorder F41.1 [place] [address] [address] Mar, Major depression F32.9 [place] [address] [address] Mar, Major depression F32.9 ; Generalized anx iety disorder F41.1 and BMI 40.0-44.9, adult Z68.41 [place] [address] [address] Jan, [place] [address] [address] November, Major depression F32.9 ; Generalized anx iety disorder F41.1 and BMI 45.0-49.9, adult Z68.42 [place] [address] [place] [id number] Jul, Major depression F32.9 ; Generalized anx iety disorder F41.1 and BMI 45.0-49.9, adult Z68.42 [place] [address] [address] Apr, Major depression F32.9 and Generalized a nxiety disorder F41.1 [place] [address] [address] Jan, Generalized anxiety disorder F41.1 and D epression, major, recurrent, moderate F33.1 [place] [address] [address] Oct, Generalized anxiety disorder F41.1 and M ajor depression F32.9 [place] [address] [address] Jul, Generalized anxiety disorder F41.1 and D epression, major, recurrent, moderate F33.1 [place] [address] [address] Jun, [place] [address] [address] Mar, [place] [address] [address] Mar, Generalized anxiety disorder F41.1 and M ajor depression F32.9 [place] [address] [address] Dec, [place] [address] [address] Dec, Generalized anxiety disorder F41.1 and M ajor depression F32.9 [place] [address] [address] November, [facility] [address] [address] Oct, [facility] [address] [address] Sep, Unspecified mood [affective] disorder F3 9 ; Generalized anxiety disorder F41.1 and Major depression F32.9 [facility] [address] [address] Sep, [facility] [address] [address] Aug, [facility] [address] [address] Jul, [facility] [address] [address] Jul, [facility] [address] [address] Jun, [facility] [address] [address] Jun, Major depression F32.9 ; Generalized anx iety disorder F41.1 and Unspecified mood [affective] disorder F39 [facility] [address] [address] Jun, [facility] [address] [address] Apr, [facility] [address] [address] Mar, [facility] [address] [address] Mar, Anxiety 300.00 and Major depressive diso rder, recurrent episode, severe 296.33 [facility] [address] [address] Feb, [facility] [address] [address] Jan, [facility] [address] [place] [id number] [place] [address] Dec, [facility] [address] [place] [id number] [place] [address] Dec, [facility] [address] [id number] [place] [address] Dec, Major depressive disorder, recurrent epi sode, severe, without mention of psychotic behavior 296.33 ; Mood disorder 296.90 and Anxiety disorder, unspecified 300.00 [facility] [address] [place] [address] [id number] [place] [address] Oct, [facility] [address] [place] [address] [id number] [place] [address] Oct, [facility] [address] [place] [address] [id number] [place] [address] Sep, [facility] [address] [place] [id number] [place] [address] Sep, [facility] [address] [place] [id number] [place] [address] Sep, [facility] [address] [place] [id number] [place] [address] Sep, [facility] [address] [place] [id number] [place] [address] Sep, [facility] [address] [place] [address] [id number] [place] [address] Sep, [facility] [address] [place] [id number] [place] [address] Aug, [facility] [address] [place] [id number] [place] [address] Aug, [facility] [address] [place] [id number] [place] [address] Aug, [facility] [address] [place] [id number] [place] [address] Jul, [facility] [address] [place] [id number] [place] [address] Jul, [facility] [address] [id number] [place] [address] Jun, [facility] [address] [id number] [place] [address] Jun, [facility] [address] [id number] [place] [address] May, [facility] [address] [id number] [place] [address] May, [facility] [address] [id number] [place] [address] May, [facility] [address] [id number] [place] [address] May, [facility] [address] [id number] [place] [address] Apr, [facility] [address] [id number] [place] [address] Apr, [facility] [address] [id number] [place] [address] Apr, [facility] [address] [id number] [place] [address] Apr, [facility] [address] [id number] [place] [address] Apr, [facility] [address] [id number] [place] [address] Apr, [facility] [address] [id number] [place] [address] Jan, [facility] [address] [place] [id number] [place] [address] Jan, [facility] [address] [id number] [place] [address] November, [facility] [address] [id number] [place] [address] November, [facility] [address] [id number] [place] [address] Oct, [facility] [address] [id number] [place] [address] Oct, [facility] [address] [id number] [place] [address] Oct, [facility] [address] [id number] [place] [address] Oct, [facility] [address] [id number] [place] [address] Oct, [facility] [address] [id number] [place] [address] Oct, [facility] [address] [id number] [place] [address] Sep, [facility] [address] [id number] [place] [address] Sep, [facility] [address] [id number] [place] [address] Jul, [facility] [address] [id number] [place] [address] Jul, [facility] [address] [id number] [place] [address] Jun, [facility] [address] [id number] [place] [address] Jun, [facility] [address] [id number] [place] [address] May, [facility] [address] [id number] [place] [address] May, [facility] [address] [id number] [place] [address] Mar, [facility] [address] [id number] [place] [address] Feb, [facility] [address] [id number] [place] [address] Jan, [facility] [address] [facility] [id number] [place] [address] Dec, [facility] [address] [id number] [place] [address] Dec, [facility] [address] [id number] [place] [address] November, [facility] [address] [id number] [place] [address] November, [facility] [address] [facility] [id number] [place] [address] Sep, [facility] [address] [id number] [place] [address] Jun, [facility] [address] [id number] [place] [address] Jun, [facility] [address] [id number] [place] [address] Jun, [facility] [address] [id number] [place] [address] Jun, [facility] [address] [id number] [place] [address] Apr, [facility] [address] [id number] [place] [address] Apr, [facility] [address] [id number] [place] [address] Apr, [facility] [address] [id number] [place] [address] Apr, [facility] [address] [id number] [place] [address] Mar, [facility] [address] [id number] [place] [address] Jan, [facility] [address] [id number] [place] [address] Jan, [facility] [address] [id number] [place] [address] Dec, [facility] [address] [id number] [place] [address] November, [facility] [address] [place] [id number] [place] [address] November, [facility] [address] [place] [id number] [place] [address] November, [facility] [address] [place] [id number] [place] [address] November, [facility] [address] [id number] [place] [address] Sep, [facility] [address] [id number] [place] [address] Aug, [facility] [address] [id number] [place] [address] May, [facility] [address] [place] [id number] [place] [address] May, [facility] [address] [place] [id number] [place] [address] Feb, [facility] [address] [id number] [place] [address] Jun, [facility] [address] [id number] [place] [address] Jun, [facility] [address] [id number] [place] [address] Apr, [facility] [address] [place] [id number] [place] [address] Jun, [facility] [address] [place] [id number] [place] [address] May, [facility] [id number] [place] [address] May, IMMUNIZATIONS No Known Immunizations SOCIAL HISTORY [...] arthroscopic knees Hospitalization History surgeries Hospitalization History [facility] unit for depression 200 4
--- OUTSIDE RECORDS SUMMARY | 2019-09-29 06:16 | XMS REPORT ---
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 Active 10540625 Problem Major depressive disorder, r ecurrent episode, severe, without mention of psychotic behavior 296.33 Active 26297608 Problem Depression, major, recurrent, moderate F33.1 Active [id number] ALLERGIES No Information ENCOUNTERS Encounter Location Date Diagnosis [place] [address] [id number] [place] [address] Aug, Major depression F32.9 [place] [address] [address] [place] [id number] [place] [address] Jul, [place] [address] [address] [place] [id number] [address] [place] [address] Jun, Major depression F32.9 [place] [address] [address] [place] [id number] [address] [place] [address] Jun, Major depression F32.9 and G eneralized anxiety disorder F41.1 [place] [address] [address] [facility] [id number] [address] [place] [address] Mar, Major depression F32.9 [place] [address] [address] [place] [id number] [address] [place] [address] Mar, Major depression F32.9 ; Gen eralized anxiety disorder F41.1 and BMI 40.0-44.9, adult Z68.41 [place] [address] [address] [place] [id number] [place] [address] Jan, [facility] [place] [address] [id number] [address] [place] [address] November, Major depression F32.9 ; Gen eralized anxiety disorder F41.1 and BMI 45.0-49.9, adult Z68.42 [facility] [place] [address] [id number] [address] [place] [address] Jul, Major depression F32.9 ; Gen eralized anxiety disorder F41.1 and BMI 45.0-49.9, adult Z68.42 [facility] [place] [address] [id number] [address] [place] [address] Apr, Major depression F32.9 and G eneralized anxiety disorder F41.1 [facility] [place] [address] [id number] [address] [place] [address] Jan, Generalized anxiety disorder F41.1 and Depression, major, recurrent, moderate F33.1 [facility] [place] [address] [id number] [address] [place] [address] Oct, Generalized anxiety disorder F41.1 and Major depression F32.9 [facility] [place] [address] [id number] [address] [place] [address] Jul, Generalized anxiety disorder F41.1 and Depression, major, recurrent, moderate F33.1 [facility] [place] [address] [id number] [address] [place] [address] Jun, [facility] [place] [address] [id number] [address] [place] [address] 15 Mar, 2016 [facility] [place] [address] [id number] [address] [place] [address] 14 Mar, 2016 Generalized anxiety disorder F41.1 and Major depression F32.9 [facility] [place] [address] [id number] [address] [place] [address] Dec, [facility] [place] [address] [facility] [id number] [address] [place] [address] Dec, Generalized anxiety disorder F41.1 and Major depression F32.9 [facility] [place] [address] [id number] [address] [place] [address] November, [facility] [place] [address] [id number] [address] [place] [address] Oct, [facility] [place] [address] [id number] [address] [place] [address] 16 Sep, 2015 Unspecified mood [affective] disorder F39 ; Generalized anxiety disorder F41.1 and Major depression F32.9 [facility] [place] [address] [id number] [address] [place] [address] Sep, [facility] [place] [address] [id number] [address] [place] [address] Aug, [facility] [place] [address] [id number] [address] [place] [address] Jul, [facility] [place] [address] [id number] [address] [place] [address] Jul, [facility] [place] [address] [id number] [address] [place] [address] Jun, [facility] [place] [address] [id number] [address] [place] [address] Jun, Major depression F32.9 ; Gen eralized anxiety disorder F41.1 and Unspecified mood [affective] disorder F39 [facility] [place] [address] [id number] [address] [place] [address] Jun, [facility] [place] [address] [id number] [address] [place] [address] Apr, [facility] [place] [address] [id number] [address] [place] [address] Mar, [facility] [place] [address] [facility] [id number] [address] [place] [address] Mar, Anxiety 300.00 and Major dep ressive disorder, recurrent episode, severe 296.33 [facility] [place] [address] [id number] [address] [place] [address] Feb, [facility] [address] [id number] [address] [place] [address] Jan, [facility] [address] [id number] [address] [place] [address] Dec, [facility] [place] [address] [id number] [address] [place] [address] Dec, [facility] [place] [address] [id number] [address] [place] [address] Dec, Major depressive disorder, r ecurrent episode, severe, without mention of psychotic behavior 296.33 ; Mood disorder 296.90 and Anxiety disorder, unspecified 300.00 [facility] [place] [address] [id number] [address] [place] [address] Oct, [facility] [place] [address] [id number] [address] [place] [address] Oct, [facility] [place] [address] [id number] [address] [place] [address] Sep, [facility] [place] [address] [id number] [address] [place] [address] Sep, [facility] [place] [address] [id number] [address] [place] [address] Sep, [facility] [place] [address] [id number] [address] [place] [address] Sep, [facility] [address] [id number] [address] [place] [address] Sep, [facility] [address] [id number] [address] [place] [address] Sep, [facility] [address] [id number] [address] [place] [address] Aug, [facility] [place] [address] [id number] [address] [place] [address] Aug, [facility] [address] [id number] [address] [place] [address], [place] [address] Aug, [facility] [address] [id number] [address] [place] [address], [place] [address] Jul, [facility] [address] [id number] [address] [place] [address], [place] [address] Jul, [facility] [address] [id number] [address] [place] [address], [place] [address] Jun, [facility] [address] [id number] [address] [place] [address], [place] [address] Jun, [facility] [address] [id number] [address] [place] [address], [place] [address] May, [facility] [address] [id number] [address] [place] [address], [place] [address] May, [facility] [address] [id number] [address] [place] [address], [place] [address] May, [facility] [address] [id number] [address] [place] [address], [place] [address] May, [facility] [address] [id number] [address] [place] [address], [place] [address] Apr, [facility] [address] [id number] [address] [place] [address], [place] [address] Apr, [facility] [address] [id number] [address] [place] [address] Apr, [facility] [address] [id number] [address] [place] [address], [place] [address] Apr, [facility] [address] [id number] [address] [place] [address] Apr, [facility] [address] [id number] [address] [place] [address] Apr, [facility] [address] [id number] [address] [place] [address], [place] [address] Jan, [facility] [address] [id number] [address] [place] [address], [place] [address] Jan, [facility] [address] [id number] [address] [place] [address], [place] [address] November, [facility] [address] [id number] [address] [place] [address], [place] [address] November, [facility] [address] [id number] [address] [place] [address], [place] [address] Oct, [facility] [address] [id number] [address] [place] [address], [place] [address] Oct, [facility] [address] [id number] [address] [place] [address], [place] [address] Oct, [facility] [address] [id number] [address] [place] [address], [place] [address] Oct, [facility] [address] [id number] [address] [place] [address], [place] [address] Oct, [facility] [address] [id number] [address] [place] [address], [place] [address] Oct, [facility] [address] [id number] [address] [place] [address], [place] [address] Sep, [facility] [address] [id number] [address] [place] [address], [place] [address] Sep, [facility] [address] [id number] [address] [place] [address], [place] [address] Jul, [facility] [address] [id number] [address] [place] [address], [place] [address] Jul, [facility] [address] [id number] [address] [place] [address], [place] [address] Jun, [facility] [address] [id number] [address] [place] [address], [place] [address] Jun, [facility] [address] [id number] [address] [place] [address], [place] [address] May, [facility] [address] [id number] [address] [place] [address], [place] [address] May, [facility] [address] [id number] [address] [place] [address], [place] [address] Mar, [facility] [address] [id number] [address] [place] [address], [place] [address] Feb, [facility] [address] [id number] [address] [place] [address], [place] [address] Jan, [facility] [address] [id number] [address] [place] [address], [place] [address] Dec, [facility] [address] [id number] [address] [place] [address], [place] [address] Dec, [facility] [address] [id number] [address] [place] [address], [place] [address] November, [facility] [address] [id number] [address] [place] [address], [place] [address] November, [facility] [address] [id number] [address] [place] [address], [place] [address] Sep, [facility] [address] [id number] [address] [place] [address], [place] [address] Jun, [facility] [address] [id number] [address] [place] [address], [place] [address] Jun, [facility] [address] [id number] [address] [place] [address], [place] [address] Jun, [facility] [address] [id number] [address] [place] [address], [place] [address] Jun, [facility] [address] [id number] [address] [place] [address], [place] [address] Apr, [facility] [address] [id number] [address] [place] [address], [place] [address] Apr, [facility] [address] [id number] [address] [place] [address], [place] [address] Apr, [facility] [address] [id number] [address] [place] [address], [place] [address] Apr, [facility] [address] [id number] [address] [place] [address], [place] [address] Mar, [facility] [address] [id number] [address] [place] [address], [place] [address] Jan, [facility] [address] [id number] [address] [place] [address], [place] [address] Jan, [facility] [address] [id number] [address] [place] [address], [place] [address] Dec, [facility] [address] [id number] [address] [place] [address], [place] [address] November, [facility] [address] [id number] [address] [place] [address], [place] [address] November, [facility] [address] [id number] [address] [place] [address], [place] [address] November, [facility] [address] [id number] [address] [place] [address], [place] [address] November, [facility] [address] [id number] [address] [place] [address], [place] [address] Sep, [facility] [address] [id number] [address] [place] [address], [place] [address] Aug, [facility] [address] [id number] [address] [place] [address], [place] [address] May, [facility] [address] [id number] [address] [place] [address], [place] [address] May, [facility] [address] [id number] [address] [place] [address], [place] [address] Feb, [facility] [place] [address] [facility] [id number] [address] [place] [address] Jun, [facility] [place] [address] [facility] [id number] [address] [place] [address] Jun, [facility] [place] [address] [facility] [id number] [address] [place] [address] Apr, [facility] [place] [address] [facility] [id number] [address] [place] [address] Jun, [facility] [place] [address] [facility] [id number] [address] [place] [address] May, [facility] [place] [address] [facility] [id number] [address] [place] [address] May, IMMUNIZATIONS No Known Immunizations SOCIAL HISTORY [...] Hospitalization History surgeries Hospitalization History [facility] unit for depression 200 4
--- OUTSIDE RECORDS SUMMARY | 2019-09-29 06:16 | XMS REPORT ---
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 Active 94716781 Problem Major depressive disorder, r ecurrent episode, severe, without mention of psychotic behavior 296.33 Active 29124400 Problem Depression, major, recurrent, moderate F33.1 Active 15383010 ALLERGIES No Information ENCOUNTERS Encounter Location Date Diagnosis [place] [address] [address] Aug, Major depression F32.9 [place] [address] [address] Jul, [place] [address] [address] Jun, Major depression F32.9 [place] [address] [address] Jun, Major depression F32.9 and Generalized a nxiety disorder F41.1 [place] [address] [address] Mar, Major depression F32.9 [place] [address] [address] Mar, Major depression F32.9 ; Generalized anx iety disorder F41.1 and BMI 40.0-44.9, adult Z68.41 [place] [address] [address] Jan, [place] [address] [address] November, Major depression F32.9 ; Generalized anx iety disorder F41.1 and BMI 45.0-49.9, adult Z68.42 [place] [address] [address] [place] [id number] Jul, Major depression F32.9 ; Generalized anx iety disorder F41.1 and BMI 45.0-49.9, adult Z68.42 [place] [address] [address] Apr, Major depression F32.9 and Generalized a nxiety disorder F41.1 [place] [address] [address] Jan, Generalized anxiety disorder F41.1 and D epression, major, recurrent, moderate F33.1 [place] [address] [address] Oct, Generalized anxiety disorder F41.1 and M ajor depression F32.9 [place] [address] [address] Jul, Generalized anxiety disorder F41.1 and D epression, major, recurrent, moderate F33.1 [place] [address] [address] Jun, [place] [address] [address] Mar, [place] [address] [address] Mar, Generalized anxiety disorder F41.1 and M ajor depression F32.9 [place] [address] [address] Dec, [place] [address] [address] Dec, Generalized anxiety disorder F41.1 and M ajor depression F32.9 [place] [address] [address] November, [facility] [address] [address] Oct, [facility] [address] [address] Sep, Unspecified mood [affective] disorder F3 9 ; Generalized anxiety disorder F41.1 and Major depression F32.9 [facility] [address] [address] Sep, [facility] [address] [address] Aug, [facility] [address] [address] Jul, [facility] [address] [address] Jul, [facility] [address] [address] Jun, [facility] [address] [address] Jun, Major depression F32.9 ; Generalized anx iety disorder F41.1 and Unspecified mood [affective] disorder F39 [facility] [address] [address] Jun, [facility] [address] [address] Apr, [facility] [address] [address] Mar, [facility] [address] [address] Mar, Anxiety 300.00 and Major depressive diso rder, recurrent episode, severe 296.33 [facility] [address] [address] Feb, [facility] [address] [address] Jan, [facility] [address] [place] [id number] [place] [address] Dec, [facility] [address] [place] [id number] [place] [address] Dec, [facility] [address] [id number] [place] [address] Dec, Major depressive disorder, recurrent epi sode, severe, without mention of psychotic behavior 296.33 ; Mood disorder 296.90 and Anxiety disorder, unspecified 300.00 [facility] [address] [place] [id number] [place] [address] Oct, [facility] [address] [place] [id number] [place] [address] Oct, [facility] [address] [place] [id number] [place] [address] Sep, [facility] [address] [place] [id number] [place] [address] Sep, [facility] [address] [place] [id number] [place] [address] Sep, [facility] [address] [place] [id number] [place] [address] Sep, [facility] [address] [place] [id number] [place] [address] Sep, [facility] [address] [place] [id number] [place] [address] Sep, [facility] [address] [place] [id number] [place] [address] Aug, [facility] [address] [place] [id number] [place] [address] Aug, [facility] [address] [place] [id number] [place] [address] Aug, [facility] [address] [place] [id number] [place] [address] Jul, [facility] [address] [place] [id number] [place] [address] Jul, [facility] [address] [id number] [place] [address] Jun, [facility] [address] [id number] [place] [address] Jun, [facility] [address] [id number] [place] [address] May, [facility] [address] [id number] [place] [address] May, [facility] [address] [id number] [place] [address] May, [facility] [address] [id number] [place] [address] May, [facility] [address] [id number] [place] [address] Apr, [facility] [address] [id number] [place] [address] Apr, [facility] [address] [id number] [place] [address] Apr, [facility] [address] [id number] [place] [address] Apr, [facility] [address] [id number] [place] [address] Apr, [facility] [address] [id number] [place] [address] Apr, [facility] [address] [id number] [place] [address] Jan, [facility] [address] [place] [id number] [place] [address] Jan, [facility] [address] [id number] [place] [address] November, [facility] [address] [id number] [place] [address] November, [facility] [address] [id number] [place] [address] Oct, [facility] [address] [id number] [place] [address] Oct, [facility] [address] [id number] [place] [address] Oct, [facility] [address] [id number] [place] [address] Oct, [facility] [address] [id number] [place] [address] Oct, [facility] [address] [id number] [place] [address] Oct, [facility] [address] [id number] [place] [address] Sep, [facility] [address] [id number] [place] [address] Sep, [facility] [address] [id number] [place] [address] Jul, [facility] [address] [id number] [place] [address] Jul, [facility] [address] [id number] [place] [address] Jun, [facility] [address] [id number] [place] [address] Jun, [facility] [address] [id number] [place] [address] May, [facility] [address] [id number] [place] [address] May, [facility] [address] [id number] [place] [address] Mar, [facility] [address] [id number] [place] [address] Feb, [facility] [address] [id number] [place] [address] Jan, [facility] [address] [facility] [id number] [place] [address] Dec, [facility] [address] [id number] [place] [address] Dec, [facility] [address] [id number] [place] [address] November, [facility] [address] [id number] [place] [address] November, [facility] [address] [facility] [id number] [place] [address] Sep, [facility] [address] [id number] [place] [address] Jun, [facility] [address] [id number] [place] [address] Jun, [facility] [address] [id number] [place] [address] Jun, [facility] [address] [id number] [place] [address] Jun, [facility] [address] [id number] [place] [address] Apr, [facility] [address] [id number] [place] [address] Apr, [facility] [address] [id number] [place] [address] Apr, [facility] [address] [id number] [place] [address] Apr, [facility] [address] [id number] [place] [address] Mar, [facility] [address] [id number] [place] [address] Jan, [facility] [address] [id number] [place] [address] Jan, [facility] [address] [id number] [place] [address] Dec, [facility] [address] [id number] [place] [address] November, [facility] [address] [place] [id number] [place] [address] November, [facility] [address] [place] [id number] [place] [address] November, [facility] [address] [place] [id number] [place] [address] November, [facility] [address] [id number] [place] [address] Sep, [facility] [address] [place] [id number] [place] [address] Aug, [facility] [address] [place] [id number] [place] [address] May, [facility] [address] [place] [id number] [place] [address] May, [facility] [address] [place] [id number] [place] [address] Feb, [facility] [address] [place] [id number] [place] [address] Jun, [facility] [address] [place] [id number] [place] [address] Jun, [facility] [address] [place] [id number] [place] [address] Apr, [facility] [address] [place] [id number] [place] [address] Jun, [facility] [address] [place] [id number] [place] [address] May, [facility] [address] [place] [id number] [place] [address] May, IMMUNIZATIONS No Known Immunizations SOCIAL HISTORY Never Assessed REASON FOR VISIT PLAN OF CARE VITAL SIGNS Weight 246.5 lbs 2013-11-03 Temperature 98.2 degrees Fahrenheit 2013-11-03 Heart Rate 88 bpm 2013-11-03 Respiratory Rate 28 2013-11-03 Blood pressure systolic 88 mmHg 2013-11-03 Blood pressure diastolic 60 mmHg 2013-11-03 MEDICATIONS Unknown Medications RESULTS No Results PROCEDURES [...] arthroscopic knees Hospitalization History surgeries Hospitalization History [facility] unit for depression 200 4
--- OUTSIDE RECORDS SUMMARY | 2019-09-29 06:16 | XMS REPORT ---
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 Active 02522498 Problem Major depressive disorder, r ecurrent episode, severe, without mention of psychotic behavior 296.33 Active 42955187 Problem Depression, major, recurrent, moderate F33.1 Active [id number] ALLERGIES No Information ENCOUNTERS Encounter Location Date Diagnosis [place] [id number] [place] [phone] Aug, Major depression F32.9 [place] [address] [address] [place] [id number] [address] [place] [phone] Jul, [place] [address] [place] [id number] [address] [place] [phone] Jun, Major depression F32.9 [place] [address] [place] [id number] [address] [place] [phone] Jun, Major depression F32.9 and G eneralized anxiety disorder F41.1 [place] [address] [address] [facility] [id number] [address] [place] [phone] Mar, Major depression F32.9 [place] [address] [address] [place] [id number] [address] [place] [phone] Mar, Major depression F32.9 ; Gen eralized anxiety disorder F41.1 and BMI 40.0-44.9, adult Z68.41 [place] [address] [address] [place] [id number] [address] [place] [phone] Jan, [facility] [address] [id number] [address] [place] [phone] November, Major depression F32.9 ; Gen eralized anxiety disorder F41.1 and BMI 45.0-49.9, adult Z68.42 [facility] [address] [id number] [address] [place] [phone] Jul, Major depression F32.9 ; Gen eralized anxiety disorder F41.1 and BMI 45.0-49.9, adult Z68.42 [facility] [address] [id number] [address] [place] [phone] Apr, Major depression F32.9 and G eneralized anxiety disorder F41.1 [facility] [address] [id number] [address] [place] [phone] Jan, Generalized anxiety disorder F41.1 and Depression, major, recurrent, moderate F33.1 [facility] [address] [id number] [address] [place] [phone] Oct, Generalized anxiety disorder F41.1 and Major depression F32.9 [facility] [address] [id number] [address] [place] [phone] Jul, Generalized anxiety disorder F41.1 and Depression, major, recurrent, moderate F33.1 [facility] [address] [id number] [address] [place] [phone] Jun, [facility] [address] [id number] [address] [place] [phone] 15 Mar, 2016 [facility] [address] [id number] [address] [place] [phone] 14 Mar, 2016 Generalized anxiety disorder F41.1 and Major depression F32.9 [facility] [address] [id number] [address] [place] [phone] Dec, [facility] [address] [facility] [id number] [address] [place] [phone] Dec, Generalized anxiety disorder F41.1 and Major depression F32.9 [facility] [address] [id number] [address] [place] [phone] November, [facility] [address] [id number] [address] [place] [phone] Oct, [facility] [address] [id number] [address] [place] [phone] 16 Sep, 2015 Unspecified mood [affective] disorder F39 ; Generalized anxiety disorder F41.1 and Major depression F32.9 [facility] [address] [id number] [address] [place] [phone] Sep, [facility] [address] [id number] [address] [place] [phone] Aug, [facility] [address] [id number] [address] [place] [phone] Jul, [facility] [address] [id number] [address] [place] [phone] Jul, [facility] [address] [id number] [address] [place] [phone] Jun, [facility] [address] [id number] [address] [place] [phone] Jun, Major depression F32.9 ; Gen eralized anxiety disorder F41.1 and Unspecified mood [affective] disorder F39 [facility] [address] [id number] [address] [place] [phone] Jun, [facility] [address] [id number] [address] [place] [phone] Apr, [facility] [address] [id number] [address] [place] [phone] Mar, [facility] [address] [facility] [id number] [address] [place] [phone] Mar, Anxiety 300.00 and Major dep ressive disorder, recurrent episode, severe 296.33 [facility] [address] [id number] [address] [place] [phone] Feb, [facility] [address] [id number] [address] [place] [phone] Jan, [facility] [address] [id number] [address] [place] [phone] Dec, [facility] [address] [id number] [address] [place] [phone] Dec, [facility] [address] [id number] [address] [place] [phone] Dec, Major depressive disorder, r ecurrent episode, severe, without mention of psychotic behavior 296.33 ; Mood disorder 296.90 and Anxiety disorder, unspecified 300.00 [facility] [address] [id number] [address] [place] [phone] Oct, [facility] [address] [id number] [address] [place] [phone] Oct, [facility] [address] [id number] [address] [place] [phone] Sep, [facility] [address] [id number] [address] [place] [phone] Sep, [facility] [address] [id number] [address] [place] [phone] Sep, [facility] [address] [id number] [address] [place] [phone] Sep, [facility] [address] [id number] [address] [place] [phone] Sep, [facility] [address] [id number] [address] [place] [phone] Sep, [facility] [address] [id number] [address] [place] [phone] Aug, [facility] [address] [id number] [address] [place] [phone] Aug, [facility] [address] [id number] [address] [place] [address], [place] [address] Aug, [facility] [address] [id number] [address] [place] [address], [place] [address] Jul, [facility] [address] [id number] [address] [place] [address], [place] [address] Jul, [facility] [address] [id number] [address] [place] [address], [place] [address] Jun, [facility] [address] [id number] [address] [place] [address], [place] [address] Jun, [facility] [address] [id number] [address] [place] [address], [place] [address] May, [facility] [address] [id number] [address] [place] [address], [place] [address] May, [facility] [address] [id number] [address] [place] [address], [place] [address] May, [facility] [address] [id number] [address] [place] [address], [place] [address] May, [facility] [address] [id number] [address] [place] [address], [place] [address] Apr, [facility] [address] [id number] [address] [place] [address], [place] [address] Apr, [facility] [address] [id number] [address] [place] [phone] Apr, [facility] [address] [id number] [address] [place] [address], [place] [address] Apr, [facility] [address] [id number] [address] [place] [phone] Apr, [facility] [address] [id number] [address] [place] [phone] Apr, [facility] [address] [id number] [address] [place] [address], [place] [address] Jan, [facility] [address] [id number] [address] [place] [address], [place] [address] Jan, [facility] [address] [id number] [address] [place] [address], [place] [address] November, [facility] [address] [id number] [address] [place] [address], [place] [address] November, [facility] [address] [id number] [address] [place] [address], [place] [address] Oct, [facility] [address] [id number] [address] [place] [address], [place] [address] Oct, [facility] [address] [id number] [address] [place] [address], [place] [address] Oct, [facility] [address] [id number] [address] [place] [address], [place] [address] Oct, [facility] [address] [id number] [address] [place] [address], [place] [address] Oct, [facility] [address] [id number] [address] [place] [address], [place] [address] Oct, [facility] [address] [id number] [address] [place] [address], [place] [address] Sep, [facility] [address] [id number] [address] [place] [address], [place] [address] Sep, [facility] [address] [id number] [address] [place] [address], [place] [address] Jul, [facility] [address] [id number] [address] [place] [address], [place] [address] Jul, [facility] [address] [id number] [address] [place] [address], [place] [address] Jun, [facility] [address] [id number] [address] [place] [address], [place] [address] Jun, [facility] [address] [id number] [address] [place] [address], [place] [address] May, [facility] [address] [id number] [address] [place] [address], [place] [address] May, [facility] [address] [id number] [address] [place] [address], [place] [address] Mar, [facility] [address] [id number] [address] [place] [address], [place] [address] Feb, [facility] [address] [id number] [address] [place] [address], [place] [address] Jan, [facility] [address] [id number] [address] [place] [address], [place] [address] Dec, [facility] [address] [id number] [address] [place] [address], [place] [address] Dec, [facility] [address] [id number] [address] [place] [address], [place] [address] November, [facility] [address] [id number] [address] [place] [address], [place] [address] November, [facility] [address] [id number] [address] [place] [address], [place] [address] Sep, [facility] [address] [id number] [address] [place] [address], [place] [address] Jun, [facility] [address] [id number] [address] [place] [address], [place] [address] Jun, [facility] [address] [id number] [address] [place] [address], [place] [address] Jun, [facility] [address] [id number] [address] [place] [address], [place] [address] Jun, [facility] [address] [id number] [address] [place] [address], [place] [address] Apr, [facility] [address] [id number] [address] [place] [address], [place] [address] Apr, [facility] [address] [id number] [address] [place] [address], [place] [address] Apr, [facility] [address] [id number] [address] [place] [address], [place] [address] Apr, [facility] [address] [id number] [address] [place] [address], [place] [address] Mar, [facility] [address] [id number] [address] [place] [address], [place] [address] Jan, [facility] [address] [id number] [address] [place] [address], [place] [address] Jan, [facility] [address] [id number] [address] [place] [address], [place] [address] Dec, [facility] [address] [id number] [address] [place] [address], [place] [address] November, [facility] [address] [id number] [address] [place] [address], [place] [address] November, [facility] [address] [id number] [address] [place] [address], [place] [address] November, [facility] [address] [id number] [address] [place] [address], [place] [address] November, [facility] [address] [id number] [address] [place] [address], [place] [address] Sep, [facility] [address] [id number] [address] [place] [address], [place] [address] Aug, [facility] [address] [id number] [address] [place] [address], [place] [address] May, [facility] [address] [id number] [address] [place] [address], [place] [address] May, [facility] [address] [id number] [address] [place] [address], [place] [address] Feb, [facility] [address] [facility] [id number] [address] [place] [address] Jun, [facility] [address] [facility] [id number] [address] [place] [address] Jun, [facility] [address] [facility] [id number] [address] [place] [address] Apr, [facility] [address] [facility] [id number] [address] [place] [address] Jun, [facility] [address] [facility] [id number] [address] [place] [address] May, [facility] [address] [facility] [id number] [address] [place] [address] May, IMMUNIZATIONS No Known Immunizations SOCIAL HISTORY [...] arthroscopic knees Hospitalization History surgeries Hospitalization History [facility] unit for depression 200 4
--- OUTSIDE RECORDS SUMMARY | 2019-09-29 06:16 | XMS REPORT ---
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 Active 54874877 Problem Major depressive disorder, r ecurrent episode, severe, without mention of psychotic behavior 296.33 Active 07945504 Problem Depression, major, recurrent, moderate F33.1 Active 28587273 ALLERGIES No Information ENCOUNTERS Encounter Location Date Diagnosis [place] [address] [address] Aug, Major depression F32.9 [place] [address] [address] Jul, [place] [address] [address] Jun, Major depression F32.9 [place] [address] [address] Jun, Major depression F32.9 and Generalized a nxiety disorder F41.1 [place] [address] [address] Mar, Major depression F32.9 [place] [address] [address] Mar, Major depression F32.9 ; Generalized anx iety disorder F41.1 and BMI 40.0-44.9, adult Z68.41 [place] [address] [address] Jan, [place] [address] [address] November, Major depression F32.9 ; Generalized anx iety disorder F41.1 and BMI 45.0-49.9, adult Z68.42 [place] [address] [place] [id number] Jul, Major depression F32.9 ; Generalized anx iety disorder F41.1 and BMI 45.0-49.9, adult Z68.42 [place] [address] [address] Apr, Major depression F32.9 and Generalized a nxiety disorder F41.1 [place] [address] [address] Jan, Generalized anxiety disorder F41.1 and D epression, major, recurrent, moderate F33.1 [place] [address] [address] Oct, Generalized anxiety disorder F41.1 and M ajor depression F32.9 [place] [address] [address] Jul, Generalized anxiety disorder F41.1 and D epression, major, recurrent, moderate F33.1 [place] [address] [address] Jun, [place] [address] [address] Mar, [place] [address] [address] Mar, Generalized anxiety disorder F41.1 and M ajor depression F32.9 [place] [address] [address] Dec, [place] [address] [address] Dec, Generalized anxiety disorder F41.1 and M ajor depression F32.9 [place] [address] [address] November, [facility] [address] [address] Oct, [facility] [address] [address] Sep, Unspecified mood [affective] disorder F3 9 ; Generalized anxiety disorder F41.1 and Major depression F32.9 [facility] [address] [address] Sep, [facility] [address] [address] Aug, [facility] [address] [address] Jul, [facility] [address] [address] Jul, [facility] [address] [address] Jun, [facility] [address] [address] Jun, Major depression F32.9 ; Generalized anx iety disorder F41.1 and Unspecified mood [affective] disorder F39 [facility] [address] [address] Jun, [facility] [address] [address] Apr, [facility] [address] [address] Mar, [facility] [address] [address] Mar, Anxiety 300.00 and Major depressive diso rder, recurrent episode, severe 296.33 [facility] [address] [address] Feb, [facility] [address] [address] Jan, [facility] [address] [place] [id number] [place] [address] Dec, [facility] [address] [place] [id number] [place] [address] Dec, [facility] [address] [id number] [place] [address] Dec, Major depressive disorder, recurrent epi sode, severe, without mention of psychotic behavior 296.33 ; Mood disorder 296.90 and Anxiety disorder, unspecified 300.00 [facility] [place] [address] [place] [id number] [place] [address] Oct, [facility] [address] [id number] [place] [address] Oct, [facility] [address] [place] [address] [id number] [place] [address] Sep, [facility] [address] [place] [address] [id number] [place] [address] Sep, [facility] [address] [place] [address] [id number] [place] [address] Sep, [facility] [address] [id number] [place] [address] Sep, [facility] [address] [place] [id number] [place] [address] Sep, [facility] [address] [place] [id number] [place] [address] Sep, [facility] [address] [place] [id number] [place] [address] Aug, [facility] [address] [place] [id number] [place] [address] Aug, [facility] [address] [place] [id number] [place] [address] Aug, [facility] [address] [place] [id number] [place] [address] Jul, [facility] [address] [place] [id number] [place] [address] Jul, [facility] [address] [id number] [place] [address] Jun, [facility] [address] [id number] [place] [address] Jun, [facility] [address] [id number] [place] [address] May, [facility] [address] [id number] [place] [address] May, [facility] [address] [id number] [place] [address] May, [facility] [address] [id number] [place] [address] May, [facility] [address] [id number] [place] [address] Apr, [facility] [address] [id number] [place] [address] Apr, [facility] [address] [id number] [place] [address] Apr, [facility] [address] [id number] [place] [address] Apr, [facility] [address] [id number] [place] [address] Apr, [facility] [address] [id number] [place] [address] Apr, [facility] [address] [id number] [place] [address] Jan, [facility] [address] [place] [id number] [place] [address] Jan, [facility] [address] [id number] [place] [address] November, [facility] [address] [id number] [place] [address] November, [facility] [address] [id number] [place] [address] Oct, [facility] [address] [id number] [place] [address] Oct, [facility] [address] [id number] [place] [address] Oct, [facility] [address] [id number] [place] [address] Oct, [facility] [address] [id number] [place] [address] Oct, [facility] [address] [id number] [place] [address] Oct, [facility] [address] [id number] [place] [address] Sep, [facility] [address] [id number] [place] [address] Sep, [facility] [address] [id number] [place] [address] Jul, [facility] [address] [id number] [place] [address] Jul, [facility] [address] [id number] [place] [address] Jun, [facility] [address] [id number] [place] [address] Jun, [facility] [address] [id number] [place] [address] May, [facility] [address] [id number] [place] [address] May, [facility] [address] [id number] [place] [address] Mar, [facility] [address] [id number] [place] [address] Feb, [facility] [address] [id number] [place] [address] Jan, [facility] [address] [facility] [id number] [place] [address] Dec, [facility] [address] [id number] [place] [address] Dec, [facility] [address] [id number] [place] [address] November, [facility] [address] [id number] [place] [address] November, [facility] [address] [facility] [id number] [place] [address] Sep, [facility] [address] [id number] [place] [address] Jun, [facility] [address] [id number] [place] [address] Jun, [facility] [address] [id number] [place] [address] Jun, [facility] [address] [id number] [place] [address] Jun, [facility] [address] [id number] [place] [address] Apr, [facility] [address] [id number] [place] [address] Apr, [facility] [address] [id number] [place] [address] Apr, [facility] [address] [id number] [place] [address] Apr, [facility] [address] [id number] [place] [address] Mar, [facility] [address] [id number] [place] [address] Jan, [facility] [address] [id number] [place] [address] Jan, [facility] [address] [id number] [place] [address] Dec, [facility] [id number] [place] [address] November, [facility] [address] [place] [id number] [place] [address] November, [facility] [address] [id number] [place] [address] November, [facility] [address] [place] [id number] [place] [address] November, [facility] [address] [place] [id number] [place] [address] Sep, [facility] [address] [id number] [place] [address] Aug, [facility] [address] [place] [id number] [place] [address] May, [facility] [address] [place] [id number] [place] [address] May, [facility] [address] [place] [id number] [place] [address] Feb, [facility] [address] [place] [id number] [place] [address] Jun, [facility] [address] [place] [id number] [place] [address] Jun, [facility] [address] [place] [id number] [place] [address] Apr, [facility] [address] [place] [id number] [place] [address] Jun, [facility] [address] [id number] [place] [address] May, [facility] [id number] [place] [address] May, IMMUNIZATIONS No Known Immunizations SOCIAL HISTORY Never Assessed REASON FOR VISIT PLAN OF CARE VITAL SIGNS Height 62.5 in 2014-02-02 Weight 244.38 lbs 2014-02-02 Temperature 98.6 degrees Fahrenheit 2014-02-02 Heart Rate 76 bpm 2014-02-02 Respiratory Rate 28 2014-02-02 Blood pressure systolic 98 mmHg 2014-02-02 Blood pressure diastolic 70 mmHg 2014-02-02 MEDICATIONS Unknown Medications RESULTS No Results PROCEDURES [...] arthroscopic knees Hospitalization History surgeries Hospitalization History [facility] unit for depression 200 4
--- OUTSIDE RECORDS SUMMARY | 2019-09-29 06:17 | XMS REPORT ---
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 Active 52459979 Problem Major depressive disorder, r ecurrent episode, severe, without mention of psychotic behavior 296.33 Active 68386368 Problem Depression, major, recurrent, moderate F33.1 Active [id number] ALLERGIES No Information ENCOUNTERS Encounter Location Date Diagnosis [facility] [address] [id number] [address] [place] [id number] 12 Aug, 2018 Major depression F32.9 [place] [address] [id number] [place] [address] Jul, [facility] [address] [id number] [address] [place] [phone] Jun, Major depression F32.9 [facility] [address] [id number] [address] [place] [phone] Jun, Major depression F32.9 and G eneralized anxiety disorder F41.1 [facility] [address] [id number] [address] [place] [phone] Mar, Major depression F32.9 [facility] [address] [id number] [address] [place] [address] Mar, Major depression F32.9 ; Gen eralized anxiety disorder F41.1 and BMI 40.0-44.9, adult Z68.41 [place] [id number] [place] [address] Jan, [facility] [address] [facility] [id number] [address] [place] [address] November, Major depression F32.9 ; Gen eralized anxiety disorder F41.1 and BMI 45.0-49.9, adult Z68.42 [facility] [address] [facility] [id number] [address] [place] [address] Jul, Major depression F32.9 ; Gen eralized anxiety disorder F41.1 and BMI 45.0-49.9, adult Z68.42 [facility] [address] [facility] [id number] [address] [place] [phone] Apr, Major depression F32.9 and G eneralized anxiety disorder F41.1 [facility] [address] [facility] [id number] [address] [place] [phone] Jan, Generalized anxiety disorder F41.1 and Depression, major, recurrent, moderate F33.1 [facility] [address] [facility] [id number] [address] [place] [phone] Oct, Generalized anxiety disorder F41.1 and Major depression F32.9 [facility] [address] [facility] [id number] [address] [place] [phone] Jul, Generalized anxiety disorder F41.1 and Depression, major, recurrent, moderate F33.1 [facility] [address] [facility] [id number] [address] [place] [phone] Jun, [facility] [address] [facility] [id number] [address] [place] [address] Mar, [facility] [address] [facility] [id number] [address] [place] [address] Mar, Generalized anxiety disorder F41.1 and Major depression F32.9 [facility] [address] [facility] [id number] [address] [place] [phone] Dec, [facility] [address] [id number] [address] [place] [id number] 15 Dec, 2015 Generalized anxiety disorder F41.1 and Major depression F32.9 [facility] [address] [id number] [address] [place] [phone] November, [facility] [address] [id number] [address] [place] [address] Oct, [facility] [address] [id number] [address] [place] [id number] 16 Sep, 2015 Unspecified mood [affective] disorder F39 ; Generalized anxiety disorder F41.1 and Major depression F32.9 [facility] [address] [id number] [address] [place] [phone] Sep, [facility] [address] [id number] [address] [place] [address] Aug, [facility] [address] [id number] [address] [place] [address] Jul, [facility] [address] [id number] [address] [place] [phone] Jul, [facility] [address] [id number] [address] [place] [phone] Jun, [facility] [address] [id number] [address] [place] [address] Jun, Major depression F32.9 ; Gen eralized anxiety disorder F41.1 and Unspecified mood [affective] disorder F39 [facility] [address] [id number] [address] [place] [phone] Jun, [facility] [address] [id number] [address] [place] [address] Apr, [facility] [address] [id number] [address] [place] [phone] Mar, [facility] [address] [facility] [id number] [address] [place] [address] Mar, Anxiety 300.00 and Major dep ressive disorder, recurrent episode, severe 296.33 [facility] [address] [id number] [address] [place] [phone] Feb, [facility] [address] [facility] [id number] [address] [place] [phone] Jan, [facility] [address] [facility] [id number] [address] [place] [phone] Dec, [facility] [address] [facility] [id number] [address] [place] [address] Dec, [facility] [address] [facility] [id number] [address] [place] [address] Dec, Major depressive disorder, r ecurrent episode, severe, without mention of psychotic behavior 296.33 ; Mood disorder 296.90 and Anxiety disorder, unspecified 300.00 [facility] [address] [facility] [id number] [address] [place] [phone] Oct, [facility] [address] [facility] [id number] [address] [place] [phone] Oct, [facility] [address] [facility] [id number] [address] [place] [phone] Sep, [facility] [address] [facility] [id number] [address] [place] [address] Sep, [facility] [address] [facility] [id number] [address] [place] [phone] Sep, [facility] [address] [facility] [id number] [address] [place] [phone] Sep, [facility] [address] [facility] [id number] [address] [place] [phone] Sep, [facility] [address] [facility] [id number] [address] [place] [phone] Sep, [facility] [address] [facility] [id number] [address] [place] [phone] Aug, [facility] [address] [id number] [address] [place] [address], [place] [address] Aug, [facility] [address] [id number] [address] [place] [address], [place] [address] Aug, [facility] [address] [id number] [address] [place] [address], [place] [address] Jul, [facility] [address] [id number] [address] [place] [address], [place] [address] Jul, [facility] [address] [id number] [address] [place] [address], [place] [address] Jun, [facility] [address] [id number] [address] [place] [address], [place] [address] Jun, [facility] [address] [id number] [address] [place] [address], [place] [address] May, [facility] [address] [id number] [address] [place] [address], [place] [address] May, [facility] [address] [id number] [address] [place] [address], [place] [address] May, [facility] [address] [id number] [address] [place] [address], [place] [address] May, [facility] [address] [id number] [address] [place] [address], [place] [address] Apr, [facility] [address] [id number] [address] [place] [address] Apr, [facility] [address] [id number] [address] [place] [address], [place] [address] Apr, [facility] [address] [id number] [address] [place] [address], [place] [address] Apr, [facility] [address] [id number] [address] [place] [address], [place] [address] Apr, [facility] [address] [id number] [address] [place] [address], [place] [address] Apr, [facility] [address] [id number] [address] [place] [address], [place] [address] Jan, [facility] [address] [id number] [address] [place] [address], [place] [address] Jan, [facility] [address] [id number] [address] [place] [address], [place] [address] November, [facility] [address] [id number] [address] [place] [address], [place] [address] November, [facility] [address] [id number] [address] [place] [address], [place] [address] Oct, [facility] [address] [id number] [address] [place] [address], [place] [address] Oct, [facility] [address] [id number] [address] [place] [address], [place] [address] Oct, [facility] [address] [id number] [address] [place] [address], [place] [address] Oct, [facility] [address] [id number] [address] [place] [address], [place] [address] Oct, [facility] [address] [id number] [address] [place] [address], [place] [address] Oct, [facility] [address] [id number] [address] [place] [address], [place] [address] Sep, [facility] [address] [id number] [address] [place] [address], [place] [address] Sep, [facility] [address] [id number] [address] [place] [address], [place] [address] Jul, [facility] [address] [id number] [address] [place] [address], [place] [address] Jul, [facility] [address] [id number] [address] [place] [address], [place] [address] Jun, [facility] [address] [id number] [address] [place] [address], [place] [address] Jun, [facility] [address] [id number] [address] [place] [address], [place] [address] May, [facility] [address] [id number] [address] [place] [address], [place] [address] May, [facility] [address] [id number] [address] [place] [address], [place] [address] Mar, [facility] [address] [id number] [address] [place] [address], [place] [address] Feb, [facility] [address] [id number] [address] [place] [address], [place] [address] Jan, [facility] [address] [id number] [address] [place] [address], [place] [address] Dec, [facility] [address] [id number] [address] [place] [address], [place] [address] Dec, [facility] [address] [id number] [address] [place] [address], [place] [address] November, [facility] [address] [id number] [address] [place] [address], [place] [address] November, [facility] [address] [id number] [address] [place] [address], [place] [address] Sep, [facility] [address] [id number] [address] [place] [address], [place] [address] Jun, [facility] [address] [id number] [address] [place] [address], [place] [address] Jun, [facility] [address] [id number] [address] [place] [address], [place] [address] Jun, [facility] [address] [id number] [address] [place] [address], [place] [address] Jun, [facility] [address] [id number] [address] [place] [address], [place] [address] Apr, [facility] [address] [id number] [address] [place] [address], [place] [address] Apr, [facility] [address] [id number] [address] [place] [address], [place] [address] Apr, [facility] [address] [id number] [address] [place] [address], [place] [address] Apr, [facility] [address] [id number] [address] [place] [address], [place] [address] Mar, [facility] [address] [id number] [address] [place] [address], [place] [address] Jan, [facility] [address] [id number] [address] [place] [address], [place] [address] Jan, [facility] [address] [id number] [address] [place] [address], [place] [address] Dec, [facility] [address] [id number] [address] [place] [address], [place] [address] November, [facility] [address] [id number] [address] [place] [address], [place] [address] November, [facility] [address] [id number] [address] [place] [address], [place] [address] November, [facility] [address] [id number] [address] [place] [address], [place] [address] November, [facility] [address] [id number] [address] [place] [address], [place] [address] Sep, [facility] [address] [id number] [address] [place] [address], [place] [address] Aug, [facility] [address] [id number] [address] [place] [address], [place] [address] May, [facility] [address] [id number] [address] [place] [address], [place] [address] May, [facility] [address] [id number] [address] [place] [address] Feb, [facility] [address] [facility] [id number] [address] [place] [address] Jun, [facility] [address] [facility] [id number] [address] [place] [address] Jun, [facility] [address] [facility] [id number] [address] [place] [address] Apr, [facility] [address] [facility] [id number] [address] [place] [address] Jun, [facility] [address] [facility] [id number] [address] [place] [address] May, [facility] [address] [facility] [id number] [address] [place] [address] May, IMMUNIZATIONS No Known Immunizations SOCIAL HISTORY [...] arthroscopic knees Hospitalization History surgeries Hospitalization History [facility] unit for depression 200 4
--- OUTSIDE RECORDS SUMMARY | 2019-09-29 06:17 | XMS REPORT ---
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 Active 26690515 Problem Major depressive disorder, r ecurrent episode, severe, without mention of psychotic behavior 296.33 Active 97717141 Problem Depression, major, recurrent, moderate F33.1 Active [id number] ALLERGIES No Information ENCOUNTERS Encounter Location Date Diagnosis [facility], [place] [address] [id number] [address] [place] [id number] 12 Aug, 2018 Major depression F32.9 [place] [address] [id number] [place] [address] Jul, [facility], [place] [address] [id number] [address] [place] [address] Jun, Major depression F32.9 [facility] [place] [address] [id number] [address] [place] [address] Jun, Major depression F32.9 and G eneralized anxiety disorder F41.1 [facility] [place] [address] [id number] [address] [place] [address] Mar, Major depression F32.9 [facility] [place] [address] [id number] [address] [place] [address] Mar, Major depression F32.9 ; Gen eralized anxiety disorder F41.1 and BMI 40.0-44.9, adult Z68.41 [place] [id number] [place] [address] Jan, [facility], [place] [address] [facility] [id number] [address] [place] [address] November, Major depression F32.9 ; Gen eralized anxiety disorder F41.1 and BMI 45.0-49.9, adult Z68.42 [facility] [place] [address] [facility] [id number] [address] [place] [address] Jul, Major depression F32.9 ; Gen eralized anxiety disorder F41.1 and BMI 45.0-49.9, adult Z68.42 [facility] [place] [address] [facility] [id number] [address] [place] [phone] Apr, Major depression F32.9 and G eneralized anxiety disorder F41.1 [facility] [place] [address] [facility] [id number] [address] [place] [phone] Jan, Generalized anxiety disorder F41.1 and Depression, major, recurrent, moderate F33.1 [facility] [place] [address] [facility] [id number] [address] [place] [id number] Oct, Generalized anxiety disorder F41.1 and Major depression F32.9 [facility] [place] [address] [facility] [id number] [address] [place] [id number] Jul, Generalized anxiety disorder F41.1 and Depression, major, recurrent, moderate F33.1 [facility] [place] [address] [facility] [id number] [address] [place] [phone] Jun, [facility] [place] [address] [facility] [id number] [address] [place] [phone] Mar, [facility] [place] [address] [facility] [id number] [address] [place] [phone] Mar, Generalized anxiety disorder F41.1 and Major depression F32.9 [facility] [place] [address] [facility] [id number] [address] [place] [phone] Dec, [facility] [place] [address] [id number] [address] [place] [id number] 15 Dec, 2015 Generalized anxiety disorder F41.1 and Major depression F32.9 [facility] [place] [address] [id number] [address] [place] [phone] November, [facility] [place] [address] [id number] [address] [place] [id number] Oct, [facility] [place] [address] [id number] [address] [place] [id number] 16 Sep, 2015 Unspecified mood [affective] disorder F39 ; Generalized anxiety disorder F41.1 and Major depression F32.9 [facility] [place] [address] [id number] [address] [place] [phone] Sep, [facility] [place] [address] [id number] [address] [place] [id number] Aug, [facility] [place] [address] [id number] [address] [place] [phone] Jul, [facility] [place] [address] [id number] [address] [place] [phone] Jul, [facility] [place] [address] [id number] [address] [place] [address] Jun, [facility] [place] [address] [id number] [address] [place] [phone] Jun, Major depression F32.9 ; Gen eralized anxiety disorder F41.1 and Unspecified mood [affective] disorder F39 [facility] [place] [address] [id number] [address] [place] [phone] Jun, [facility] [place] [address] [id number] [address] [place] [id number] Apr, [facility] [place] [address] [id number] [address] [place] [phone] Mar, [facility] [place] [address] [facility] [id number] [address] [place] [address] Mar, Anxiety 300.00 and Major dep ressive disorder, recurrent episode, severe 296.33 [facility] [place] [address] [id number] [address] [place] [phone] Feb, [facility] [place] [address] [facility] [id number] [address] [place] [phone] Jan, [facility] [place] [address] [facility] [id number] [address] [place] [phone] Dec, [facility] [place] [address] [facility] [id number] [address] [place] [phone] Dec, [facility] [place] [address] [facility] [id number] [address] [place] [address] Dec, Major depressive disorder, r ecurrent episode, severe, without mention of psychotic behavior 296.33 ; Mood disorder 296.90 and Anxiety disorder, unspecified 300.00 [facility] [place] [address] [facility] [id number] [address] [place] [phone] Oct, [facility] [place] [address] [facility] [id number] [address] [place] [phone] Oct, [facility] [place] [address] [facility] [id number] [address] [place] [phone] Sep, [facility] [place] [address] [facility] [id number] [address] [place] [phone] Sep, [facility] [place] [address] [facility] [id number] [address] [place] [phone] Sep, [facility] [place] [address] [facility] [id number] [address] [place] [id number] Sep, [facility] [place] [address] [facility] [id number] [address] [place] [phone] Sep, [facility] [place] [address] [facility] [id number] [address] [place] [phone] Sep, [facility] [place] [address] [facility] [id number] [address] [place] [phone] Aug, [facility] [address] [id number] [address] [place] [address], [place] [address] Aug, [facility] [address] [id number] [address] [place] [address], [place] [address] Aug, [facility] [address] [id number] [address] [place] [address], [place] [address] Jul, [facility] [address] [id number] [address] [place] [address], [place] [address] Jul, [facility] [address] [id number] [address] [place] [address], [place] [address] Jun, [facility] [address] [id number] [address] [place] [address], [place] [address] Jun, [facility] [address] [id number] [address] [place] [address], [place] [address] May, [facility] [address] [id number] [address] [place] [address], [place] [address] May, [facility] [address] [id number] [address] [place] [address], [place] [address] May, [facility] [address] [id number] [address] [place] [address], [place] [address] May, [facility] [address] [id number] [address] [place] [address], [place] [address] Apr, [facility] [address] [id number] [address] [place] [phone] Apr, [facility] [address] [id number] [address] [place] [address], [place] [address] Apr, [facility] [address] [id number] [address] [place] [address], [place] [address] Apr, [facility] [address] [id number] [address] [place] [address], [place] [address] Apr, [facility] [address] [id number] [address] [place] [address], [place] [address] Apr, [facility] [address] [id number] [address] [place] [address], [place] [address] Jan, [facility] [address] [id number] [address] [place] [address], [place] [address] Jan, [facility] [address] [id number] [address] [place] [address], [place] [address] November, [facility] [address] [id number] [address] [place] [address], [place] [address] November, [facility] [address] [id number] [address] [place] [address], [place] [address] Oct, [facility] [address] [id number] [address] [place] [address], [place] [address] Oct, [facility] [address] [id number] [address] [place] [address], [place] [address] Oct, [facility] [address] [id number] [address] [place] [address], [place] [address] Oct, [facility] [address] [id number] [address] [place] [address], [place] [address] Oct, [facility] [address] [id number] [address] [place] [address], [place] [address] Oct, [facility] [address] [id number] [address] [place] [address], [place] [address] Sep, [facility] [address] [id number] [address] [place] [address], [place] [address] Sep, [facility] [address] [id number] [address] [place] [address], [place] [address] Jul, [facility] [address] [id number] [address] [place] [address], [place] [address] Jul, [facility] [address] [id number] [address] [place] [address], [place] [address] Jun, [facility] [address] [id number] [address] [place] [address], [place] [address] Jun, [facility] [address] [id number] [address] [place] [address], [place] [address] May, [facility] [address] [id number] [address] [place] [address], [place] [address] May, [facility] [address] [id number] [address] [place] [address], [place] [address] Mar, [facility] [address] [id number] [address] [place] [address], [place] [address] Feb, [facility] [address] [id number] [address] [place] [address], [place] [address] Jan, [facility] [address] [id number] [address] [place] [address], [place] [address] Dec, [facility] [address] [id number] [address] [place] [address], [place] [address] Dec, [facility] [address] [id number] [address] [place] [address], [place] [address] November, [facility] [address] [id number] [address] [place] [address], [place] [address] November, [facility] [address] [id number] [address] [place] [address], [place] [address] Sep, [facility] [address] [id number] [address] [place] [address], [place] [address] Jun, [facility] [address] [id number] [address] [place] [address], [place] [address] Jun, [facility] [address] [id number] [address] [place] [address], [place] [address] Jun, [facility] [address] [id number] [address] [place] [address], [place] [address] Jun, [facility] [address] [id number] [address] [place] [address], [place] [address] Apr, [facility] [address] [id number] [address] [place] [address], [place] [address] Apr, [facility] [address] [id number] [address] [place] [address], [place] [address] Apr, [facility] [address] [id number] [address] [place] [address], [place] [address] Apr, [facility] [address] [id number] [address] [place] [address], [place] [address] Mar, [facility] [address] [id number] [address] [place] [address], [place] [address] Jan, [facility] [address] [id number] [address] [place] [address], [place] [address] Jan, [facility] [address] [id number] [address] [place] [address], [place] [address] Dec, [facility] [address] [id number] [address] [place] [address], [place] [address] November, [facility] [address] [id number] [address] [place] [address], [place] [address] November, [facility] [address] [id number] [address] [place] [address], [place] [address] November, [facility] [address] [id number] [address] [place] [address], [place] [address] November, [facility] [address] [id number] [address] [place] [address], [place] [address] Sep, [facility] [address] [id number] [address] [place] [address], [place] [address] Aug, [facility] [address] [id number] [address] [place] [address], [place] [address] May, [facility] [address] [id number] [address] [place] [address], [place] [address] May, [facility] [address] [id number] [address] [place] [address] Feb, [facility] [place] [address] [facility] [id number] [address] [place] [address] Jun, [facility] [place] [address] [facility] [id number] [address] [place] [address] Jun, [facility] [place] [address] [facility] [id number] [address] [place] [address] Apr, [facility] [place] [address] [facility] [id number] [address] [place] [address] Jun, [facility] [place] [address] [facility] [id number] [address] [place] [address] May, [facility] [place] [address] [facility] [id number] [address] [place] [address] May, IMMUNIZATIONS No Known Immunizations SOCIAL HISTORY [...] arthroscopic knees Hospitalization History surgeries Hospitalization History [facility] unit for depression 200 4
--- OUTSIDE RECORDS SUMMARY | 2019-09-29 06:17 | XMS REPORT ---
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 Active 66749084 Problem Major depressive disorder, r ecurrent episode, severe, without mention of psychotic behavior 296.33 Active 17799806 Problem Depression, major, recurrent, moderate F33.1 Active [id number] ALLERGIES No Information ENCOUNTERS Encounter Location Date Diagnosis [facility] [address] [id number] [address] [place] [address] 12 Aug, 2018 Major depression F32.9 [place] [address] [id number] [place] [address] Jul, [facility] [address] [id number] [address] [place] [address] Jun, Major depression F32.9 [facility] [address] [id number] [address] [place] [address] Jun, Major depression F32.9 and G eneralized anxiety disorder F41.1 [facility] [address] [id number] [address] [place] [address] Mar, Major depression F32.9 [facility] [address] [id number] [address] [place] [address] Mar, Major depression F32.9 ; Gen eralized anxiety disorder F41.1 and BMI 40.0-44.9, adult Z68.41 [place] [id number] [place] [address] Jan, [facility] [address] [facility] [id number] [address] [place] [address] November, Major depression F32.9 ; Gen eralized anxiety disorder F41.1 and BMI 45.0-49.9, adult Z68.42 [facility] [address] [facility] [id number] [address] [place] [address] Jul, Major depression F32.9 ; Gen eralized anxiety disorder F41.1 and BMI 45.0-49.9, adult Z68.42 [facility] [address] [facility] [id number] [address] [place] [address] Apr, Major depression F32.9 and G eneralized anxiety disorder F41.1 [facility] [address] [facility] [id number] [address] [place] [address] Jan, Generalized anxiety disorder F41.1 and Depression, major, recurrent, moderate F33.1 [facility] [address] [facility] [id number] [address] [place] [address] Oct, Generalized anxiety disorder F41.1 and Major depression F32.9 [facility] [address] [facility] [id number] [address] [place] [address] Jul, Generalized anxiety disorder F41.1 and Depression, major, recurrent, moderate F33.1 [facility] [address] [facility] [id number] [address] [place] [address] Jun, [facility] [address] [facility] [id number] [address] [place] [address] Mar, [facility] [address] [facility] [id number] [address] [place] [address] Mar, Generalized anxiety disorder F41.1 and Major depression F32.9 [facility] [address] [facility] [id number] [address] [place] [address] Dec, [facility] [address] [id number] [address] [place] [id number] 15 Dec, 2015 Generalized anxiety disorder F41.1 and Major depression F32.9 [facility] [address] [id number] [address] [place] [phone] November, [facility] [address] [id number] [address] [place] [phone] Oct, [facility] [address] [id number] [address] [place] [id number] 16 Sep, 2015 Unspecified mood [affective] disorder F39 ; Generalized anxiety disorder F41.1 and Major depression F32.9 [facility] [address] [id number] [address] [place] [address] Sep, [facility] [address] [id number] [address] [place] [phone] Aug, [facility] [address] [id number] [address] [place] [address] Jul, [facility] [address] [id number] [address] [place] [phone] Jul, [facility] [address] [id number] [address] [place] [address] Jun, [facility] [address] [id number] [address] [place] [address] Jun, Major depression F32.9 ; Gen eralized anxiety disorder F41.1 and Unspecified mood [affective] disorder F39 [facility] [address] [id number] [address] [place] [address] Jun, [facility] [address] [id number] [address] [place] [address] Apr, [facility] [address] [id number] [address] [place] [phone] Mar, [facility] [address] [facility] [id number] [address] [place] [address] Mar, Anxiety 300.00 and Major dep ressive disorder, recurrent episode, severe 296.33 [facility] [address] [id number] [address] [place] [address] Feb, [facility] [address] [facility] [id number] [address] [place] [address] Jan, [facility] [address] [facility] [id number] [address] [place] [address] Dec, [facility] [address] [facility] [id number] [address] [place] [phone] Dec, [facility] [address] [facility] [id number] [address] [place] [address] Dec, Major depressive disorder, r ecurrent episode, severe, without mention of psychotic behavior 296.33 ; Mood disorder 296.90 and Anxiety disorder, unspecified 300.00 [facility] [address] [facility] [id number] [address] [place] [address] Oct, [facility] [address] [facility] [id number] [address] [place] [address] Oct, [facility] [address] [facility] [id number] [address] [place] [address] Sep, [facility] [address] [facility] [id number] [address] [place] [phone] Sep, [facility] [address] [facility] [id number] [address] [place] [phone] Sep, [facility] [address] [facility] [id number] [address] [place] [phone] Sep, [facility] [address] [facility] [id number] [address] [place] [phone] Sep, [facility] [address] [facility] [id number] [address] [place] [phone] Sep, [facility] [address] [facility] [id number] [address] [place] [phone] Aug, [facility] [address] [id number] [address] [place] [address], [place] [address] Aug, [facility] [address] [id number] [address] [place] [address], [place] [address] Aug, [facility] [address] [id number] [address] [place] [address], [place] [address] Jul, [facility] [address] [id number] [address] [place] [address], [place] [address] Jul, [facility] [address] [id number] [address] [place] [address], [place] [address] Jun, [facility] [address] [id number] [address] [place] [address], [place] [address] Jun, [facility] [address] [id number] [address] [place] [address], [place] [address] May, [facility] [address] [id number] [address] [place] [address], [place] [address] May, [facility] [address] [id number] [address] [place] [address], [place] [address] May, [facility] [address] [id number] [address] [place] [address], [place] [address] May, [facility] [address] [id number] [address] [place] [address], [place] [address] Apr, [facility] [address] [id number] [address] [place] [address] Apr, [facility] [address] [id number] [address] [place] [address], [place] [address] Apr, [facility] [address] [id number] [address] [place] [address], [place] [address] Apr, [facility] [address] [id number] [address] [place] [address], [place] [address] Apr, [facility] [address] [id number] [address] [place] [address], [place] [address] Apr, [facility] [address] [id number] [address] [place] [address], [place] [address] Jan, [facility] [address] [id number] [address] [place] [address], [place] [address] Jan, [facility] [address] [id number] [address] [place] [address], [place] [address] November, [facility] [address] [id number] [address] [place] [address], [place] [address] November, [facility] [address] [id number] [address] [place] [address], [place] [address] Oct, [facility] [address] [id number] [address] [place] [address], [place] [address] Oct, [facility] [address] [id number] [address] [place] [address], [place] [address] Oct, [facility] [address] [id number] [address] [place] [address], [place] [address] Oct, [facility] [address] [id number] [address] [place] [address], [place] [address] Oct, [facility] [address] [id number] [address] [place] [address], [place] [address] Oct, [facility] [address] [id number] [address] [place] [address], [place] [address] Sep, [facility] [address] [id number] [address] [place] [address], [place] [address] Sep, [facility] [address] [id number] [address] [place] [address], [place] [address] Jul, [facility] [address] [id number] [address] [place] [address], [place] [address] Jul, [facility] [address] [id number] [address] [place] [address], [place] [address] Jun, [facility] [address] [id number] [address] [place] [address], [place] [address] Jun, [facility] [address] [id number] [address] [place] [address], [place] [address] May, [facility] [address] [id number] [address] [place] [address], [place] [address] May, [facility] [address] [id number] [address] [place] [address], [place] [address] Mar, [facility] [address] [id number] [address] [place] [address], [place] [address] Feb, [facility] [address] [id number] [address] [place] [address], [place] [address] Jan, [facility] [address] [id number] [address] [place] [address], [place] [address] Dec, [facility] [address] [id number] [address] [place] [address], [place] [address] Dec, [facility] [address] [id number] [address] [place] [address], [place] [address] November, [facility] [address] [id number] [address] [place] [address], [place] [address] November, [facility] [address] [id number] [address] [place] [address], [place] [address] Sep, [facility] [address] [id number] [address] [place] [address], [place] [address] Jun, [facility] [address] [id number] [address] [place] [address], [place] [address] Jun, [facility] [address] [id number] [address] [place] [address], [place] [address] Jun, [facility] [address] [id number] [address] [place] [address], [place] [address] Jun, [facility] [address] [id number] [address] [place] [address], [place] [address] Apr, [facility] [address] [id number] [address] [place] [address], [place] [address] Apr, [facility] [address] [id number] [address] [place] [address], [place] [address] Apr, [facility] [address] [id number] [address] [place] [address], [place] [address] Apr, [facility] [address] [id number] [address] [place] [address], [place] [address] Mar, [facility] [address] [id number] [address] [place] [address], [place] [address] Jan, [facility] [address] [id number] [address] [place] [address], [place] [address] Jan, [facility] [address] [id number] [address] [place] [address], [place] [address] Dec, [facility] [address] [id number] [address] [place] [address], [place] [address] November, [facility] [address] [id number] [address] [place] [address], [place] [address] November, [facility] [address] [id number] [address] [place] [address], [place] [address] November, [facility] [address] [id number] [address] [place] [address], [place] [address] November, [facility] [address] [id number] [address] [place] [address], [place] [address] Sep, [facility] [address] [id number] [address] [place] [address], [place] [address] Aug, [facility] [address] [id number] [address] [place] [address], [place] [address] May, [facility] [address] [id number] [address] [place] [address], [place] [address] May, [facility] [address] [id number] [address] [place] [address] Feb, [facility] [address] [id number] [address] [place] [address] Jun, [facility] [address] [id number] [address] [place] [address] Jun, [facility] [address] [id number] [address] [place] [address] Apr, [facility] [address] [id number] [address] [place] [address] Jun, [facility] [address] [facility] [id number] [address] [place] [address] May, [facility] [address] [facility] [id number] [address] [place] [address] May, IMMUNIZATIONS No Known Immunizations SOCIAL HISTORY Never Assessed REASON FOR VISIT PLAN OF CARE VITAL SIGNS Height 62.5 in 2014-05-28 Weight 249.25 lbs 2014-05-28 Temperature 99.4 degrees Fahrenheit 2014-05-28 Heart Rate 80 bpm 2014-05-28 Respiratory Rate 32 2014-05-28 Blood pressure systolic 122 mmHg 2014-05-28 Blood pressure diastolic 80 mmHg 2014-05-28 MEDICATIONS Unknown Medications RESULTS No Results PROCEDURES [...] arthroscopic knees Hospitalization History surgeries Hospitalization History [facility] unit for depression 200 4
--- OUTSIDE RECORDS SUMMARY | 2019-09-29 06:17 | XMS REPORT ---
Author Author Lisa Becerril Organization [facility] Address Unknown Care Team Providers Care Cloth Classer Name Role Phone YONIS Becerril Unavailable PROBLEMS ALLERGIES No Information ENCOUNTERS IMMUNIZATIONS No Known Immunizations SOCIAL HISTORY No smoking Hx information available REASON FOR VISIT PLAN OF CARE VITAL SIGNS MEDICATIONS Unknown Medications RESULTS No Results PROCEDURES No Known procedures INSTRUCTIONS MEDICATIONS ADMINISTERED No Known Medications MEDICAL (GENERAL) HISTORY
--- OUTSIDE RECORDS SUMMARY | 2019-09-29 06:17 | XMS REPORT ---
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 .42 Active 63480804 Problem Major depressive disorder, r ecurrent episode, severe, without mention of psychotic behavior 296.33 Active 34644397 Problem Depression, major, recurrent, moderate F33.1 Active [id number] ALLERGIES No Information ENCOUNTERS Encounter Location Date Diagnosis [facility] [address] [id number] [address] [place] [id number] 12 Aug, 2018 Major depression F32.9 [place] [address] [id number] [address] [place] [address] Jul, [facility] [address] [id number] [address] [place] [address] Jun, Major depression F32.9 [facility] [address] [id number] [address] [place] [address] Jun, Major depression F32.9 and G eneralized anxiety disorder F41.1 [facility] [address] [id number] [address] [place] [address] Mar, Major depression F32.9 [facility] [address] [id number] [address] [place] [address] Mar, Major depression F32.9 ; Gen eralized anxiety disorder F41.1 and BMI 40.0-44.9, adult Z68.41 [place] [address] [id number] [address] [place] [address] Jan, [facility] [address] [facility] [id number] [address] [place] [address] November, Major depression F32.9 ; Gen eralized anxiety disorder F41.1 and BMI 45.0-49.9, adult Z68.42 [facility] [address] [facility] [id number] [address] [place] [address] Jul, Major depression F32.9 ; Gen eralized anxiety disorder F41.1 and BMI 45.0-49.9, adult Z68.42 [facility] [address] [facility] [id number] [address] [place] [address] Apr, Major depression F32.9 and G eneralized anxiety disorder F41.1 [facility] [address] [facility] [id number] [address] [place] [address] Jan, Generalized anxiety disorder F41.1 and Depression, major, recurrent, moderate F33.1 [facility] [address] [facility] [id number] [address] [place] [address] Oct, Generalized anxiety disorder F41.1 and Major depression F32.9 [facility] [address] [facility] [id number] [address] [place] [address] Jul, Generalized anxiety disorder F41.1 and Depression, major, recurrent, moderate F33.1 [facility] [address] [facility] [id number] [address] [place] [address] Jun, [facility] [address] [facility] [id number] [address] [place] [address] Mar, [facility] [address] [facility] [id number] [address] [place] [address] Mar, Generalized anxiety disorder F41.1 and Major depression F32.9 [facility] [address] [facility] [id number] [address] [place] [address] Dec, [facility] [address] [id number] [address] [place] [address] 15 Dec, 2015 Generalized anxiety disorder F41.1 and Major depression F32.9 [facility] [address] [id number] [address] [place] [address] November, [facility] [address] [id number] [address] [place] [address] Oct, [facility] [address] [id number] [address] [place] [address] 16 Sep, 2015 Unspecified mood [affective] disorder F39 ; Generalized anxiety disorder F41.1 and Major depression F32.9 [facility] [address] [id number] [address] [place] [address] Sep, [facility] [address] [id number] [address] [place] [address] Aug, [facility] [address] [id number] [address] [place] [address] Jul, [facility] [address] [id number] [address] [place] [address] Jul, [facility] [address] [id number] [address] [place] [address] Jun, [facility] [address] [id number] [address] [place] [address] Jun, Major depression F32.9 ; Gen eralized anxiety disorder F41.1 and Unspecified mood [affective] disorder F39 [facility] [address] [id number] [address] [place] [address] Jun, [facility] [address] [id number] [address] [place] [address] Apr, [facility] [address] [id number] [address] [place] [address] Mar, [facility] [address] [facility] [id number] [address] [place] [address] Mar, Anxiety 300.00 and Major dep ressive disorder, recurrent episode, severe 296.33 [facility] [address] [id number] [address] [place] [address] Feb, [facility] [address] [facility] [id number] [address] [place] [address] Jan, [facility] [address] [facility] [id number] [address] [place] [address] Dec, [facility] [address] [facility] [id number] [address] [place] [address] Dec, [facility] [address] [facility] [id number] [address] [place] [address] Dec, Major depressive disorder, r ecurrent episode, severe, without mention of psychotic behavior 296.33 ; Mood disorder 296.90 and Anxiety disorder, unspecified 300.00 [facility] [address] [facility] [id number] [address] [place] [address] Oct, [facility] [address] [facility] [id number] [address] [place] [address] Oct, [facility] [address] [facility] [id number] [address] [place] [address] Sep, [facility] [address] [facility] [id number] [address] [place] [address] Sep, [facility] [address] [facility] [id number] [address] [place] [address] Sep, [facility] [address] [facility] [id number] [address] [place] [address] Sep, [facility] [address] [facility] [id number] [address] [place] [address] Sep, [facility] [address] [facility] [id number] [address] [place] [address] Sep, [facility] [address] [facility] [id number] [address] [place] [address] Aug, [facility] [address] [id number] [address] [place] [address], [place] [address] Aug, [facility] [address] [id number] [address] [place] [address], [place] [address] Aug, [facility] [address] [id number] [address] [place] [address], [place] [address] Jul, [facility] [address] [id number] [address] [place] [address], [place] [address] Jul, [facility] [address] [id number] [address] [place] [address], [place] [address] Jun, [facility] [address] [id number] [address] [place] [address], [place] [address] Jun, [facility] [address] [id number] [address] [place] [address], [place] [address] May, [facility] [address] [id number] [address] [place] [address], [place] [address] May, [facility] [address] [id number] [address] [place] [address], [place] [address] May, [facility] [address] [id number] [address] [place] [address], [place] [address] May, [facility] [address] [id number] [address] [place] [address], [place] [address] Apr, [facility] [address] [id number] [address] [place] [address] Apr, [facility] [address] [id number] [address] [place] [address], [place] [address] Apr, [facility] [address] [id number] [address] [place] [address], [place] [address] Apr, [facility] [address] [id number] [address] [place] [address], [place] [address] Apr, [facility] [address] [id number] [address] [place] [address], [place] [address] Apr, [facility] [address] [id number] [address] [place] [address], [place] [address] Jan, [facility] [address] [id number] [address] [place] [address], [place] [address] Jan, [facility] [address] [id number] [address] [place] [address], [place] [address] November, [facility] [address] [id number] [address] [place] [address], [place] [address] November, [facility] [address] [id number] [address] [place] [address], [place] [address] Oct, [facility] [address] [id number] [address] [place] [address], [place] [address] Oct, [facility] [address] [id number] [address] [place] [address], [place] [address] Oct, [facility] [address] [id number] [address] [place] [address], [place] [address] Oct, [facility] [address] [id number] [address] [place] [address], [place] [address] Oct, [facility] [address] [id number] [address] [place] [address], [place] [address] Oct, [facility] [address] [id number] [address] [place] [address], [place] [address] Sep, [facility] [address] [id number] [address] [place] [address], [place] [address] Sep, [facility] [address] [id number] [address] [place] [address], [place] [address] Jul, [facility] [address] [id number] [address] [place] [address], [place] [address] Jul, [facility] [address] [id number] [address] [place] [address], [place] [address] Jun, [facility] [address] [id number] [address] [place] [address], [place] [address] Jun, [facility] [address] [id number] [address] [place] [address], [place] [address] May, [facility] [address] [id number] [address] [place] [address], [place] [address] May, [facility] [address] [id number] [address] [place] [address], [place] [address] Mar, [facility] [address] [id number] [address] [place] [address], [place] [address] Feb, [facility] [address] [id number] [address] [place] [address], [place] [address] Jan, [facility] [address] [id number] [address] [place] [address], [place] [address] Dec, [facility] [address] [id number] [address] [place] [address], [place] [address] Dec, [facility] [address] [id number] [address] [place] [address], [place] [address] November, [facility] [address] [id number] [address] [place] [address], [place] [address] November, [facility] [address] [id number] [address] [place] [address], [place] [address] Sep, [facility] [address] [id number] [address] [place] [address], [place] [address] Jun, [facility] [address] [id number] [address] [place] [address], [place] [address] Jun, [facility] [address] [id number] [address] [place] [address], [place] [address] Jun, [facility] [address] [id number] [address] [place] [address], [place] [address] Jun, [facility] [address] [id number] [address] [place] [address], [place] [address] Apr, [facility] [address] [id number] [address] [place] [address], [place] [address] Apr, [facility] [address] [id number] [address] [place] [address], [place] [address] Apr, [facility] [address] [id number] [address] [place] [address], [place] [address] Apr, [facility] [address] [id number] [address] [place] [address], [place] [address] Mar, [facility] [address] [id number] [address] [place] [address], [place] [address] Jan, [facility] [address] [id number] [address] [place] [address], [place] [address] Jan, [facility] [address] [id number] [address] [place] [address], [place] [address] Dec, [facility] [address] [id number] [address] [place] [address], [place] [address] November, [facility] [address] [id number] [address] [place] [address], [place] [address] November, [facility] [address] [id number] [address] [place] [address], [place] [address] November, [facility] [address] [id number] [address] [place] [address], [place] [address] November, [facility] [address] [id number] [address] [place] [address], [place] [address] Sep, [facility] [address] [id number] [address] [place] [address], [place] [address] Aug, [facility] [address] [id number] [address] [place] [address], [place] [address] May, [facility] [address] [id number] [address] [place] [address], [place] [address] May, [facility] [address] [id number] [address] [place] [address] Feb, [facility] [address] [facility] [id number] [address] [place] [address] Jun, [facility] [address] [facility] [id number] [address] [place] [address] Jun, [facility] [address] [facility] [id number] [address] [place] [address] Apr, [facility] [address] [facility] [id number] [address] [place] [address] Jun, [facility] [address] [facility] [id number] [address] [place] [address] May, [facility] [address] [facility] [id number] [address] [place] [address] May, IMMUNIZATIONS No Known Immunizations SOCIAL HISTORY [...] arthroscopic knees Hospitalization History surgeries Hospitalization History [facility] unit for depression 200 4
--- OUTSIDE RECORDS SUMMARY | 2019-09-29 06:17 | XMS REPORT ---
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 Active 21036556 Problem Major depressive disorder, r ecurrent episode, severe, without mention of psychotic behavior 296.33 Active 60862356 Problem Depression, major, recurrent, moderate F33.1 Active [id number] ALLERGIES No Information ENCOUNTERS Encounter Location Date Diagnosis [place] [address] [id number] [place] [address] Aug, Major depression F32.9 [place] [address] [address] [place] [id number] [address] [place] [address] Jul, [place] [address] [place] [id number] [address] [place] [address] Jun, Major depression F32.9 [place] [address] [place] [id number] [address] [place] [address] Jun, Major depression F32.9 and G eneralized anxiety disorder F41.1 [place] [address] [address] [facility] [id number] [address] [place] [address] Mar, Major depression F32.9 [place] [address] [address] [place] [id number] [address] [place] [address] Mar, Major depression F32.9 ; Gen eralized anxiety disorder F41.1 and BMI 40.0-44.9, adult Z68.41 [place] [address] [address] [place] [id number] [address] [place] [address] Jan, [facility] [address] [id number] [address] [place] [address] November, Major depression F32.9 ; Gen eralized anxiety disorder F41.1 and BMI 45.0-49.9, adult Z68.42 [facility] [address] [id number] [address] [place] [address] Jul, Major depression F32.9 ; Gen eralized anxiety disorder F41.1 and BMI 45.0-49.9, adult Z68.42 [facility] [address] [id number] [address] [place] [address] Apr, Major depression F32.9 and G eneralized anxiety disorder F41.1 [facility] [address] [id number] [address] [place] [address] Jan, Generalized anxiety disorder F41.1 and Depression, major, recurrent, moderate F33.1 [facility] [address] [id number] [address] [place] [address] Oct, Generalized anxiety disorder F41.1 and Major depression F32.9 [facility] [address] [id number] [address] [place] [address] Jul, Generalized anxiety disorder F41.1 and Depression, major, recurrent, moderate F33.1 [facility] [address] [id number] [address] [place] [address] Jun, [facility] [address] [id number] [address] [place] [address] 15 Mar, 2016 [facility] [address] [id number] [address] [place] [address] 14 Mar, 2016 Generalized anxiety disorder F41.1 and Major depression F32.9 [facility] [address] [id number] [address] [place] [address] Dec, [facility] [address] [facility] [id number] [address] [place] [address] Dec, Generalized anxiety disorder F41.1 and Major depression F32.9 [facility] [address] [id number] [address] [place] [address] November, [facility] [address] [id number] [address] [place] [address] Oct, [facility] [address] [id number] [address] [place] [address] 16 Sep, 2015 Unspecified mood [affective] disorder F39 ; Generalized anxiety disorder F41.1 and Major depression F32.9 [facility] [address] [id number] [address] [place] [address] Sep, [facility] [address] [id number] [address] [place] [address] Aug, [facility] [address] [id number] [address] [place] [address] Jul, [facility] [address] [id number] [address] [place] [address] Jul, [facility] [address] [id number] [address] [place] [address] Jun, [facility] [address] [id number] [address] [place] [address] Jun, Major depression F32.9 ; Gen eralized anxiety disorder F41.1 and Unspecified mood [affective] disorder F39 [facility] [address] [id number] [address] [place] [address] Jun, [facility] [address] [id number] [address] [place] [address] Apr, [facility] [address] [id number] [address] [place] [address] Mar, [facility] [address] [facility] [id number] [address] [place] [address] Mar, Anxiety 300.00 and Major dep ressive disorder, recurrent episode, severe 296.33 [facility] [address] [id number] [address] [place] [address] Feb, [facility] [address] [id number] [address] [place] [id number] Jan, [facility] [address] [id number] [address] [place] [address] Dec, [facility] [address] [id number] [address] [place] [address] Dec, [facility] [address] [id number] [address] [place] [address] Dec, Major depressive disorder, r ecurrent episode, severe, without mention of psychotic behavior 296.33 ; Mood disorder 296.90 and Anxiety disorder, unspecified 300.00 [facility] [address] [id number] [address] [place] [address] Oct, [facility] [address] [id number] [address] [place] [address] Oct, [facility] [address] [id number] [address] [place] [address] Sep, [facility] [address] [id number] [address] [place] [address] Sep, [facility] [address] [id number] [address] [place] [address] Sep, [facility] [address] [id number] [address] [place] [address] Sep, [facility] [address] [id number] [address] [place] [address] Sep, [facility] [address] [id number] [address] [place] [address] Sep, [facility] [address] [id number] [address] [place] [address] Aug, [facility] [address] [id number] [address] [place] [address] Aug, [facility] [address] [id number] [address] [place] [address], [place] [address] Aug, [facility] [address] [id number] [address] [place] [address], [place] [address] Jul, [facility] [address] [id number] [address] [place] [address], [place] [address] Jul, [facility] [address] [id number] [address] [place] [address], [place] [address] Jun, [facility] [address] [id number] [address] [place] [address], [place] [address] Jun, [facility] [address] [id number] [address] [place] [address], [place] [address] May, [facility] [address] [id number] [address] [place] [address], [place] [address] May, [facility] [address] [id number] [address] [place] [address], [place] [address] May, [facility] [address] [id number] [address] [place] [address], [place] [address] May, [facility] [address] [id number] [address] [place] [address], [place] [address] Apr, [facility] [address] [id number] [address] [place] [address], [place] [address] Apr, [facility] [address] [id number] [address] [place] [address] Apr, [facility] [address] [id number] [address] [place] [address], [place] [address] Apr, [facility] [address] [id number] [address] [place] [address] Apr, [facility] [address] [id number] [address] [place] [address] Apr, [facility] [address] [id number] [address] [place] [address], [place] [address] Jan, [facility] [address] [id number] [address] [place] [address], [place] [address] Jan, [facility] [address] [id number] [address] [place] [address], [place] [address] November, [facility] [address] [id number] [address] [place] [address], [place] [address] November, [facility] [address] [id number] [address] [place] [address], [place] [address] Oct, [facility] [address] [id number] [address] [place] [address], [place] [address] Oct, [facility] [address] [id number] [address] [place] [address], [place] [address] Oct, [facility] [address] [id number] [address] [place] [address], [place] [address] Oct, [facility] [address] [id number] [address] [place] [address], [place] [address] Oct, [facility] [address] [id number] [address] [place] [address], [place] [address] Oct, [facility] [address] [id number] [address] [place] [address], [place] [address] Sep, [facility] [address] [id number] [address] [place] [address], [place] [address] Sep, [facility] [address] [id number] [address] [place] [address], [place] [address] Jul, [facility] [address] [id number] [address] [place] [address], [place] [address] Jul, [facility] [address] [id number] [address] [place] [address], [place] [address] Jun, [facility] [address] [id number] [address] [place] [address], [place] [address] Jun, [facility] [address] [id number] [address] [place] [address], [place] [address] May, [facility] [address] [id number] [address] [place] [address], [place] [address] May, [facility] [address] [id number] [address] [place] [address], [place] [address] Mar, [facility] [address] [id number] [address] [place] [address], [place] [address] Feb, [facility] [address] [id number] [address] [place] [address], [place] [address] Jan, [facility] [address] [id number] [address] [place] [address], [place] [address] Dec, [facility] [address] [id number] [address] [place] [address], [place] [address] Dec, [facility] [address] [id number] [address] [place] [address], [place] [address] November, [facility] [address] [id number] [address] [place] [address], [place] [address] November, [facility] [address] [id number] [address] [place] [address], [place] [address] Sep, [facility] [address] [id number] [address] [place] [address], [place] [address] Jun, [facility] [address] [id number] [address] [place] [address], [place] [address] Jun, [facility] [address] [id number] [address] [place] [address], [place] [address] Jun, [facility] [address] [id number] [address] [place] [address], [place] [address] Jun, [facility] [address] [id number] [address] [place] [address], [place] [address] Apr, [facility] [address] [id number] [address] [place] [address], [place] [address] Apr, [facility] [address] [id number] [address] [place] [address], [place] [address] Apr, [facility] [address] [id number] [address] [place] [address], [place] [address] Apr, [facility] [address] [id number] [address] [place] [address], [place] [address] Mar, [facility] [address] [id number] [address] [place] [address], [place] [address] Jan, [facility] [address] [id number] [address] [place] [address], [place] [address] Jan, [facility] [address] [id number] [address] [place] [address], [place] [address] Dec, [facility] [address] [id number] [address] [place] [address], [place] [address] November, [facility] [address] [id number] [address] [place] [address], [place] [address] November, [facility] [address] [id number] [address] [place] [address], [place] [address] November, [facility] [address] [id number] [address] [place] [address], [place] [address] November, [facility] [address] [id number] [address] [place] [address], [place] [address] Sep, [facility] [address] [id number] [address] [place] [address], [place] [address] Aug, [facility] [address] [id number] [address] [place] [address], [place] [address] May, [facility] [address] [id number] [address] [place] [address], [place] [address] May, [facility] [address] [id number] [address] [place] [address], [place] [address] Feb, [facility] [address] [facility] [id number] [address] [place] [address] Jun, [facility] [address] [facility] [id number] [address] [place] [address] Jun, [facility] [address] [facility] [id number] [address] [place] [address] Apr, [facility] [address] [facility] [id number] [address] [place] [address] Jun, [facility] [address] [facility] [id number] [address] [place] [address] May, [facility] [address] [facility] [id number] [address] [place] [address] May, IMMUNIZATIONS No Known Immunizations SOCIAL HISTORY [...] arthroscopic knees Hospitalization History surgeries Hospitalization History [facility] unit for [facility] 200 4
--- OUTSIDE RECORDS SUMMARY | 2019-09-29 06:18 | XMS REPORT ---
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 .42 Active 82096679 Problem Major depressive disorder, r ecurrent episode, severe, without mention of psychotic behavior 296.33 Active 00152430 Problem Depression, major, recurrent, moderate F33.1 Active [id number] ALLERGIES No Information ENCOUNTERS Encounter Location Date Diagnosis [place] [id number] [place] [address] Aug, Major depression F32.9 [place] [address] [place] [id number] [address] [place] [address] Jul, [place] [address] [place] [id number] [address] [place] [address] Jun, Major depression F32.9 [place] [address] [place] [id number] [address] [place] [address] Jun, Major depression F32.9 and G eneralized anxiety disorder F41.1 [place] [address] [address] [facility] [id number] [address] [place] [address] Mar, Major depression F32.9 [place] [address] [place] [id number] [address] [place] [address] Mar, Major depression F32.9 ; Gen eralized anxiety disorder F41.1 and BMI 40.0-44.9, adult Z68.41 [place] [address] [place] [id number] [address] [place] [address] Jan, [facility] [address] [id number] [address] [place] [address] November, Major depression F32.9 ; Gen eralized anxiety disorder F41.1 and BMI 45.0-49.9, adult Z68.42 [facility] [address] [id number] [address] [place] [address] Jul, Major depression F32.9 ; Gen eralized anxiety disorder F41.1 and BMI 45.0-49.9, adult Z68.42 [facility] [address] [id number] [address] [place] [address] Apr, Major depression F32.9 and G eneralized anxiety disorder F41.1 [facility] [address] [id number] [address] [place] [address] Jan, Generalized anxiety disorder F41.1 and Depression, major, recurrent, moderate F33.1 [facility] [address] [id number] [address] [place] [address] Oct, Generalized anxiety disorder F41.1 and Major depression F32.9 [facility] [address] [id number] [address] [place] [address] Jul, Generalized anxiety disorder F41.1 and Depression, major, recurrent, moderate F33.1 [facility] [address] [id number] [address] [place] [address] Jun, [facility] [address] [id number] [address] [place] [address] 15 Mar, 2016 [facility] [address] [id number] [address] [place] [address] 14 Mar, 2016 Generalized anxiety disorder F41.1 and Major depression F32.9 [facility] [address] [id number] [address] [place] [address] Dec, [facility] [address] [facility] [id number] [address] [place] [address] Dec, Generalized anxiety disorder F41.1 and Major depression F32.9 [facility] [address] [id number] [address] [place] [address] November, [facility] [address] [id number] [address] [place] [address] Oct, [facility] [address] [id number] [address] [place] [address] 16 Sep, 2015 Unspecified mood [affective] disorder F39 ; Generalized anxiety disorder F41.1 and Major depression F32.9 [facility] [address] [id number] [address] [place] [address] Sep, [facility] [address] [id number] [address] [place] [address] Aug, [facility] [address] [id number] [address] [place] [address] Jul, [facility] [address] [id number] [address] [place] [address] Jul, [facility] [address] [id number] [address] [place] [address] Jun, [facility] [address] [id number] [address] [place] [address] Jun, Major depression F32.9 ; Gen eralized anxiety disorder F41.1 and Unspecified mood [affective] disorder F39 [facility] [address] [id number] [address] [place] [address] Jun, [facility] [address] [id number] [address] [place] [address] Apr, [facility] [address] [id number] [address] [place] [address] Mar, [facility] [address] [facility] [id number] [address] [place] [address] Mar, Anxiety 300.00 and Major dep ressive disorder, recurrent episode, severe 296.33 [facility] [address] [id number] [address] [place] [address] Feb, [facility] [address] [id number] [address] [place] [address] Jan, [facility] [address] [id number] [address] [place] [address] Dec, [facility] [address] [id number] [address] [place] [address] Dec, [facility] [address] [id number] [address] [place] [address] Dec, Major depressive disorder, r ecurrent episode, severe, without mention of psychotic behavior 296.33 ; Mood disorder 296.90 and Anxiety disorder, unspecified 300.00 [facility] [address] [id number] [address] [place] [address] Oct, [facility] [address] [id number] [address] [place] [address] Oct, [facility] [address] [id number] [address] [place] [address] Sep, [facility] [address] [id number] [address] [place] [address] Sep, [facility] [address] [id number] [address] [place] [address] Sep, [facility] [address] [id number] [address] [place] [address] Sep, [facility] [address] [id number] [address] [place] [address] Sep, [facility] [address] [id number] [address] [place] [address] Sep, [facility] [address] [id number] [address] [place] [address] Aug, [facility] [address] [id number] [address] [place] [address] Aug, [facility] [address] [id number] [address] [place] [address], [place] [address] Aug, [facility] [address] [id number] [address] [place] [address], [place] [address] Jul, [facility] [address] [id number] [address] [place] [address], [place] [address] Jul, [facility] [address] [id number] [address] [place] [address], [place] [address] Jun, [facility] [address] [id number] [address] [place] [address], [place] [address] Jun, [facility] [address] [id number] [address] [place] [address], [place] [address] May, [facility] [address] [id number] [address] [place] [address], [place] [address] May, [facility] [address] [id number] [address] [place] [address], [place] [address] May, [facility] [address] [id number] [address] [place] [address], [place] [address] May, [facility] [address] [id number] [address] [place] [address], [place] [address] Apr, [facility] [address] [id number] [address] [place] [address], [place] [address] Apr, [facility] [address] [id number] [address] [place] [address] Apr, [facility] [address] [id number] [address] [place] [address], [place] [address] Apr, [facility] [address] [id number] [address] [place] [address] Apr, [facility] [address] [id number] [address] [place] [address] Apr, [facility] [address] [id number] [address] [place] [address], [place] [address] Jan, [facility] [address] [id number] [address] [place] [address], [place] [address] Jan, [facility] [address] [id number] [address] [place] [address], [place] [address] November, [facility] [address] [id number] [address] [place] [address], [place] [address] November, [facility] [address] [id number] [address] [place] [address], [place] [address] Oct, [facility] [address] [id number] [address] [place] [address], [place] [address] Oct, [facility] [address] [id number] [address] [place] [address], [place] [address] Oct, [facility] [address] [id number] [address] [place] [address], [place] [address] Oct, [facility] [address] [id number] [address] [place] [address], [place] [address] Oct, [facility] [address] [id number] [address] [place] [address], [place] [address] Oct, [facility] [address] [id number] [address] [place] [address], [place] [address] Sep, [facility] [address] [id number] [address] [place] [address], [place] [address] Sep, [facility] [address] [id number] [address] [place] [address], [place] [address] Jul, [facility] [address] [id number] [address] [place] [address], [place] [address] Jul, [facility] [address] [id number] [address] [place] [address], [place] [address] Jun, [facility] [address] [id number] [address] [place] [address], [place] [address] Jun, [facility] [address] [id number] [address] [place] [address], [place] [address] May, [facility] [address] [id number] [address] [place] [address], [place] [address] May, [facility] [address] [id number] [address] [place] [address], [place] [address] Mar, [facility] [address] [id number] [address] [place] [address], [place] [address] Feb, [facility] [address] [id number] [address] [place] [address], [place] [address] Jan, [facility] [address] [id number] [address] [place] [address], [place] [address] Dec, [facility] [address] [id number] [address] [place] [address], [place] [address] Dec, [facility] [address] [id number] [address] [place] [address], [place] [address] November, [facility] [address] [id number] [address] [place] [address], [place] [address] November, [facility] [address] [id number] [address] [place] [address], [place] [address] Sep, [facility] [address] [id number] [address] [place] [address], [place] [address] Jun, [facility] [address] [id number] [address] [place] [address], [place] [address] Jun, [facility] [address] [id number] [address] [place] [address], [place] [address] Jun, [facility] [address] [id number] [address] [place] [address], [place] [address] Jun, [facility] [address] [id number] [address] [place] [address], [place] [address] Apr, [facility] [address] [id number] [address] [place] [address], [place] [address] Apr, [facility] [address] [id number] [address] [place] [address], [place] [address] Apr, [facility] [address] [id number] [address] [place] [address], [place] [address] Apr, [facility] [address] [id number] [address] [place] [address], [place] [address] Mar, [facility] [address] [id number] [address] [place] [address], [place] [address] Jan, [facility] [address] [id number] [address] [place] [address], [place] [address] Jan, [facility] [address] [id number] [address] [place] [address], [place] [address] Dec, [facility] [address] [id number] [address] [place] [address], [place] [address] November, [facility] [address] [id number] [address] [place] [address], [place] [address] November, [facility] [address] [id number] [address] [place] [address], [place] [address] November, [facility] [address] [id number] [address] [place] [address], [place] [address] November, [facility] [address] [id number] [address] [place] [address], [place] [address] Sep, [facility] [address] [id number] [address] [place] [address], [place] [address] Aug, [facility] [address] [id number] [address] [place] [address], [place] [address] May, [facility] [address] [id number] [address] [place] [address], [place] [address] May, [facility] [address] [id number] [address] [place] [address], [place] [address] Feb, [facility] [address] [facility] [id number] [address] [place] [address] Jun, [facility] [address] [facility] [id number] [address] [place] [address] Jun, [facility] [address] [facility] [id number] [address] [place] [address] Apr, [facility] [address] [facility] [id number] [address] [place] [address] Jun, [facility] [address] [facility] [id number] [address] [place] [address] May, [facility] [address] [facility] [id number] [address] [place] [address] May, IMMUNIZATIONS No Known Immunizations SOCIAL HISTORY Never Assessed REASON FOR VISIT EMR-[facility] PLAN OF CARE VITAL SIGNS MEDICATIONS Unknown [...] arthroscopic knees Hospitalization History surgeries Hospitalization History [facility] unit for depression 200 4
--- OUTSIDE RECORDS SUMMARY | 2019-09-29 06:18 | XMS REPORT ---
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 Active 25540808 Problem Major depressive disorder, r ecurrent episode, severe, without mention of psychotic behavior 296.33 Active 37457810 Problem Depression, major, recurrent, moderate F33.1 Active [id number] ALLERGIES No Information ENCOUNTERS Encounter Location Date Diagnosis [place] [address] [id number] [place] [address] Aug, Major depression F32.9 [place] [address] [address] [place] [id number] [place] [address] Jul, [place] [address] [address] [place] [id number] [address] [place] [address] Jun, Major depression F32.9 [place] [address] [address] [place] [id number] [address] [place] [address] Jun, Major depression F32.9 and G eneralized anxiety disorder F41.1 [place] [address] [address] [facility] [id number] [address] [place] [address] Mar, Major depression F32.9 [place] [address] [address] [place] [id number] [address] [place] [address] Mar, Major depression F32.9 ; Gen eralized anxiety disorder F41.1 and BMI 40.0-44.9, adult Z68.41 [place] [address] [address] [place] [id number] [address] [place] [address] Jan, [facility] [address] [id number] [address] [place] [address] November, Major depression F32.9 ; Gen eralized anxiety disorder F41.1 and BMI 45.0-49.9, adult Z68.42 [facility] [address] [id number] [address] [place] [address] Jul, Major depression F32.9 ; Gen eralized anxiety disorder F41.1 and BMI 45.0-49.9, adult Z68.42 [facility] [address] [id number] [address] [place] [address] Apr, Major depression F32.9 and G eneralized anxiety disorder F41.1 [facility] [address] [id number] [address] [place] [address] Jan, Generalized anxiety disorder F41.1 and Depression, major, recurrent, moderate F33.1 [facility] [address] [id number] [address] [place] [address] Oct, Generalized anxiety disorder F41.1 and Major depression F32.9 [facility] [address] [id number] [address] [place] [address] Jul, Generalized anxiety disorder F41.1 and Depression, major, recurrent, moderate F33.1 [facility] [address] [id number] [address] [place] [address] Jun, [facility] [address] [id number] [address] [place] [address] 15 Mar, 2016 [facility] [address] [id number] [address] [place] [address] 14 Mar, 2016 Generalized anxiety disorder F41.1 and Major depression F32.9 [facility] [address] [id number] [address] [place] [address] Dec, [facility] [address] [facility] [id number] [address] [place] [address] Dec, Generalized anxiety disorder F41.1 and Major depression F32.9 [facility] [address] [id number] [address] [place] [address] November, [facility] [address] [id number] [address] [place] [address] Oct, [facility] [address] [id number] [address] [place] [phone] 16 Sep, 2015 Unspecified mood [affective] disorder F39 ; Generalized anxiety disorder F41.1 and Major depression F32.9 [facility] [address] [id number] [address] [place] [address] Sep, [facility] [address] [id number] [address] [place] [address] Aug, [facility] [address] [id number] [address] [place] [address] Jul, [facility] [address] [id number] [address] [place] [address] Jul, [facility] [address] [id number] [address] [place] [address] Jun, [facility] [address] [id number] [address] [place] [address] Jun, Major depression F32.9 ; Gen eralized anxiety disorder F41.1 and Unspecified mood [affective] disorder F39 [facility] [address] [id number] [address] [place] [address] Jun, [facility] [address] [id number] [address] [place] [address] Apr, [facility] [address] [id number] [address] [place] [address] Mar, [facility] [address] [facility] [id number] [address] [place] [address] Mar, Anxiety 300.00 and Major dep ressive disorder, recurrent episode, severe 296.33 [facility] [address] [id number] [address] [place] [address] Feb, [facility] [address] [id number] [address] [place] [address] Jan, [facility] [address] [id number] [address] [place] [address] Dec, [facility] [address] [id number] [address] [place] [address] Dec, [facility] [address] [id number] [address] [place] [address] Dec, Major depressive disorder, r ecurrent episode, severe, without mention of psychotic behavior 296.33 ; Mood disorder 296.90 and Anxiety disorder, unspecified 300.00 [facility] [address] [id number] [address] [place] [address] Oct, [facility] [address] [id number] [address] [place] [address] Oct, [facility] [address] [id number] [address] [place] [address] Sep, [facility] [address] [id number] [address] [place] [address] Sep, [facility] [address] [id number] [address] [place] [address] Sep, [facility] [address] [id number] [address] [place] [address] Sep, [facility] [address] [id number] [address] [place] [address] Sep, [facility] [address] [id number] [address] [place] [address] Sep, [facility] [address] [id number] [address] [place] [address] Aug, [facility] [address] [id number] [address] [place] [address] Aug, [facility] [address] [id number] [address] [place] [address], [place] [address] Aug, [facility] [address] [id number] [address] [place] [address], [place] [address] Jul, [facility] [address] [id number] [address] [place] [address], [place] [address] Jul, [facility] [address] [id number] [address] [place] [address], [place] [address] Jun, [facility] [address] [id number] [address] [place] [address], [place] [address] Jun, [facility] [address] [id number] [address] [place] [address], [place] [address] May, [facility] [address] [id number] [address] [place] [address], [place] [address] May, [facility] [address] [id number] [address] [place] [address], [place] [address] May, [facility] [address] [id number] [address] [place] [address], [place] [address] May, [facility] [address] [id number] [address] [place] [address], [place] [address] Apr, [facility] [address] [id number] [address] [place] [address], [place] [address] Apr, [facility] [address] [id number] [address] [place] [address] Apr, [facility] [address] [id number] [address] [place] [address], [place] [address] Apr, [facility] [address] [id number] [address] [place] [address] Apr, [facility] [address] [id number] [address] [place] [address] Apr, [facility] [address] [id number] [address] [place] [address], [place] [address] Jan, [facility] [address] [id number] [address] [place] [address], [place] [address] Jan, [facility] [address] [id number] [address] [place] [address], [place] [address] November, [facility] [address] [id number] [address] [place] [address], [place] [address] November, [facility] [address] [id number] [address] [place] [address], [place] [address] Oct, [facility] [address] [id number] [address] [place] [address], [place] [address] Oct, [facility] [address] [id number] [address] [place] [address], [place] [address] Oct, [facility] [address] [id number] [address] [place] [address], [place] [address] Oct, [facility] [address] [id number] [address] [place] [address], [place] [address] Oct, [facility] [address] [id number] [address] [place] [address], [place] [address] Oct, [facility] [address] [id number] [address] [place] [address], [place] [address] Sep, [facility] [address] [id number] [address] [place] [address], [place] [address] Sep, [facility] [address] [id number] [address] [place] [address], [place] [address] Jul, [facility] [address] [id number] [address] [place] [address], [place] [address] Jul, [facility] [address] [id number] [address] [place] [address], [place] [address] Jun, [facility] [address] [id number] [address] [place] [address], [place] [address] Jun, [facility] [address] [id number] [address] [place] [address], [place] [address] May, [facility] [address] [id number] [address] [place] [address], [place] [address] May, [facility] [address] [id number] [address] [place] [address], [place] [address] Mar, [facility] [address] [id number] [address] [place] [address], [place] [address] Feb, [facility] [address] [id number] [address] [place] [address], [place] [address] Jan, [facility] [address] [id number] [address] [place] [address], [place] [address] Dec, [facility] [address] [id number] [address] [place] [address], [place] [address] Dec, [facility] [address] [id number] [address] [place] [address], [place] [address] November, [facility] [address] [id number] [address] [place] [address], [place] [address] November, [facility] [address] [id number] [address] [place] [address], [place] [address] Sep, [facility] [address] [id number] [address] [place] [address], [place] [address] Jun, [facility] [address] [id number] [address] [place] [address], [place] [address] Jun, [facility] [address] [id number] [address] [place] [address], [place] [address] Jun, [facility] [address] [id number] [address] [place] [address], [place] [address] Jun, [facility] [address] [id number] [address] [place] [address], [place] [address] Apr, [facility] [address] [id number] [address] [place] [address], [place] [address] Apr, [facility] [address] [id number] [address] [place] [address], [place] [address] Apr, [facility] [address] [id number] [address] [place] [address], [place] [address] Apr, [facility] [address] [id number] [address] [place] [address], [place] [address] Mar, [facility] [address] [id number] [address] [place] [address], [place] [address] Jan, [facility] [address] [id number] [address] [place] [address], [place] [address] Jan, [facility] [address] [id number] [address] [place] [address], [place] [address] Dec, [facility] [address] [id number] [address] [place] [address], [place] [address] November, [facility] [address] [id number] [address] [place] [address], [place] [address] November, [facility] [address] [id number] [address] [place] [address], [place] [address] November, [facility] [address] [id number] [address] [place] [address], [place] [address] November, [facility] [address] [id number] [address] [place] [address], [place] [address] Sep, [facility] [address] [id number] [address] [place] [address], [place] [address] Aug, [facility] [address] [id number] [address] [place] [address], [place] [address] May, [facility] [address] [id number] [address] [place] [address], [place] [address] May, [facility] [address] [id number] [address] [place] [address], [place] [address] Feb, [facility] [address] [facility] [id number] [address] [place] [address] Jun, [facility] [address] [facility] [id number] [address] [place] [address] Jun, [facility] [address] [facility] [id number] [address] [place] [address] Apr, [facility] [address] [facility] [id number] [address] [place] [address] Jun, [facility] [address] [facility] [id number] [address] [place] [address] May, [facility] [address] [facility] [id number] [address] [place] [address] May, IMMUNIZATIONS No Known Immunizations SOCIAL HISTORY Never Assessed REASON FOR VISIT EMR-[facility] PLAN OF CARE VITAL SIGNS MEDICATIONS Unknown [...] knees Hospitalization History surgeries Hospitalization History [facility] unit for depression 200 4
--- OUTSIDE RECORDS SUMMARY | 2019-09-29 06:18 | XMS REPORT ---
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 Active 91974076 Problem Major depressive disorder, r ecurrent episode, severe, without mention of psychotic behavior 296.33 Active 89099210 Problem Depression, major, recurrent, moderate F33.1 Active [id number] ALLERGIES No Information ENCOUNTERS Encounter Location Date Diagnosis [place] [address] [address] [place] [id number] [place] [address] Aug, Major depression F32.9 [place] [address] [place] [id number] [address] [place] [address] Jul, [place] [address] [place] [id number] [address] [place] [address] Jun, Major depression F32.9 [place] [address] [place] [id number] [place] [address] Jun, Major depression F32.9 and G eneralized anxiety disorder F41.1 [place] [address] [address] [facility] [id number] [address] [place] [address] Mar, Major depression F32.9 [place] [address] [place] [id number] [place] [address] Mar, Major depression F32.9 ; Gen eralized anxiety disorder F41.1 and BMI 40.0-44.9, adult Z68.41 [place] [address] [place] [id number] [place] [address] Jan, [facility] [address] [id number] [address] [place] [address] November, Major depression F32.9 ; Gen eralized anxiety disorder F41.1 and BMI 45.0-49.9, adult Z68.42 [facility] [address] [id number] [address] [place] [address] Jul, Major depression F32.9 ; Gen eralized anxiety disorder F41.1 and BMI 45.0-49.9, adult Z68.42 [facility] [address] [id number] [address] [place] [address] Apr, Major depression F32.9 and G eneralized anxiety disorder F41.1 [facility] [address] [id number] [address] [place] [address] Jan, Generalized anxiety disorder F41.1 and Depression, major, recurrent, moderate F33.1 [facility] [address] [id number] [address] [place] [address] Oct, Generalized anxiety disorder F41.1 and Major depression F32.9 [facility] [address] [id number] [address] [place] [address] Jul, Generalized anxiety disorder F41.1 and Depression, major, recurrent, moderate F33.1 [facility] [address] [id number] [address] [place] [address] Jun, [facility] [address] [id number] [address] [place] [address] 15 Mar, 2016 [facility] [address] [id number] [address] [place] [address] 14 Mar, 2016 Generalized anxiety disorder F41.1 and Major depression F32.9 [facility] [address] [id number] [address] [place] [address] Dec, [facility] [address] [facility] [id number] [address] [place] [address] Dec, Generalized anxiety disorder F41.1 and Major depression F32.9 [facility] [address] [id number] [address] [place] [address] November, [facility] [address] [id number] [address] [place] [address] Oct, [facility] [address] [id number] [address] [place] [address] 16 Sep, 2015 Unspecified mood [affective] disorder F39 ; Generalized anxiety disorder F41.1 and Major depression F32.9 [facility] [address] [id number] [address] [place] [address] Sep, [facility] [address] [id number] [address] [place] [address] Aug, [facility] [address] [id number] [address] [place] [address] Jul, [facility] [address] [id number] [address] [place] [address] Jul, [facility] [address] [id number] [address] [place] [address] Jun, [facility] [address] [id number] [address] [place] [address] Jun, Major depression F32.9 ; Gen eralized anxiety disorder F41.1 and Unspecified mood [affective] disorder F39 [facility] [address] [id number] [address] [place] [address] Jun, [facility] [address] [id number] [address] [place] [address] Apr, [facility] [address] [id number] [address] [place] [address] Mar, [facility] [address] [facility] [id number] [address] [place] [address] Mar, Anxiety 300.00 and Major dep ressive disorder, recurrent episode, severe 296.33 [facility] [address] [id number] [address] [place] [address] Feb, [facility] [address] [id number] [address] [place] [address] Jan, [facility] [address] [id number] [address] [place] [address] Dec, [facility] [address] [id number] [address] [place] [address] Dec, [facility] [address] [id number] [address] [place] [address] Dec, Major depressive disorder, r ecurrent episode, severe, without mention of psychotic behavior 296.33 ; Mood disorder 296.90 and Anxiety disorder, unspecified 300.00 [facility] [address] [id number] [address] [place] [address] Oct, [facility] [address] [id number] [address] [place] [address] Oct, [facility] [address] [id number] [address] [place] [address] Sep, [facility] [address] [id number] [address] [place] [address] Sep, [facility] [address] [id number] [address] [place] [address] Sep, [facility] [address] [id number] [address] [place] [address] Sep, [facility] [address] [id number] [address] [place] [address] Sep, [facility] [address] [id number] [address] [place] [address] Sep, [facility] [address] [id number] [address] [place] [address] Aug, [facility] [address] [id number] [address] [place] [address] Aug, [facility] [address] [id number] [address] [place] [address], [place] [address] Aug, [facility] [address] [id number] [address] [place] [address], [place] [address] Jul, [facility] [address] [id number] [address] [place] [address], [place] [address] Jul, [facility] [address] [id number] [address] [place] [address], [place] [address] Jun, [facility] [address] [id number] [address] [place] [address], [place] [address] Jun, [facility] [address] [id number] [address] [place] [address], [place] [address] May, [facility] [address] [id number] [address] [place] [address], [place] [address] May, [facility] [address] [id number] [address] [place] [address], [place] [address] May, [facility] [address] [id number] [address] [place] [address], [place] [address] May, [facility] [address] [id number] [address] [place] [address], [place] [address] Apr, [facility] [address] [id number] [address] [place] [address], [place] [address] Apr, [facility] [address] [id number] [address] [place] [address] Apr, [facility] [address] [id number] [address] [place] [address], [place] [address] Apr, [facility] [address] [id number] [address] [place] [address] Apr, [facility] [address] [id number] [address] [place] [address] Apr, [facility] [address] [id number] [address] [place] [address], [place] [address] Jan, [facility] [address] [id number] [address] [place] [address], [place] [address] Jan, [facility] [address] [id number] [address] [place] [address], [place] [address] November, [facility] [address] [id number] [address] [place] [address], [place] [address] November, [facility] [address] [id number] [address] [place] [address], [place] [address] Oct, [facility] [address] [id number] [address] [place] [address], [place] [address] Oct, [facility] [address] [id number] [address] [place] [address], [place] [address] Oct, [facility] [address] [id number] [address] [place] [address], [place] [address] Oct, [facility] [address] [id number] [address] [place] [address], [place] [address] Oct, [facility] [address] [id number] [address] [place] [address], [place] [address] Oct, [facility] [address] [id number] [address] [place] [address], [place] [address] Sep, [facility] [address] [id number] [address] [place] [address], [place] [address] Sep, [facility] [address] [id number] [address] [place] [address], [place] [address] Jul, [facility] [address] [id number] [address] [place] [address], [place] [address] Jul, [facility] [address] [id number] [address] [place] [address], [place] [address] Jun, [facility] [address] [id number] [address] [place] [address], [place] [address] Jun, [facility] [address] [id number] [address] [place] [address], [place] [address] May, [facility] [address] [id number] [address] [place] [address], [place] [address] May, [facility] [address] [id number] [address] [place] [address], [place] [address] Mar, [facility] [address] [id number] [address] [place] [address], [place] [address] Feb, [facility] [address] [id number] [address] [place] [address], [place] [address] Jan, [facility] [address] [id number] [address] [place] [address], [place] [address] Dec, [facility] [address] [id number] [address] [place] [address], [place] [address] Dec, [facility] [address] [id number] [address] [place] [address], [place] [address] November, [facility] [address] [id number] [address] [place] [address], [place] [address] November, [facility] [address] [id number] [address] [place] [address], [place] [address] Sep, [facility] [address] [id number] [address] [place] [address], [place] [address] Jun, [facility] [address] [id number] [address] [place] [address], [place] [address] Jun, [facility] [address] [id number] [address] [place] [address], [place] [address] Jun, [facility] [address] [id number] [address] [place] [address], [place] [address] Jun, [facility] [address] [id number] [address] [place] [address], [place] [address] Apr, [facility] [address] [id number] [address] [place] [address], [place] [address] Apr, [facility] [address] [id number] [address] [place] [address], [place] [address] Apr, [facility] [address] [id number] [address] [place] [address], [place] [address] Apr, [facility] [address] [id number] [address] [place] [address], [place] [address] Mar, [facility] [address] [id number] [address] [place] [address], [place] [address] Jan, [facility] [address] [id number] [address] [place] [address], [place] [address] Jan, [facility] [address] [id number] [address] [place] [address], [place] [address] Dec, [facility] [address] [id number] [address] [place] [address], [place] [address] November, [facility] [address] [id number] [address] [place] [address], [place] [address] November, [facility] [address] [id number] [address] [place] [address], [place] [address] November, [facility] [address] [id number] [address] [place] [address], [place] [address] November, [facility] [address] [id number] [address] [place] [address], [place] [address] Sep, [facility] [address] [id number] [address] [place] [address], [place] [address] Aug, [facility] [address] [id number] [address] [place] [address], [place] [address] May, [facility] [address] [id number] [address] [place] [address], [place] [address] May, [facility] [address] [id number] [address] [place] [address], [place] [address] Feb, [facility] [address] [facility] [id number] [address] [place] [address] Jun, [facility] [address] [facility] [id number] [address] [place] [address] Jun, [facility] [address] [facility] [id number] [address] [place] [address] Apr, [facility] [address] [facility] [id number] [address] [place] [address] Jun, [facility] [address] [facility] [id number] [address] [place] [address] May, [facility] [address] [facility] [id number] [address] [place] [address] May, IMMUNIZATIONS No Known Immunizations SOCIAL HISTORY Never Assessed REASON FOR VISIT EMR-[facility] PLAN OF CARE VITAL SIGNS MEDICATIONS Medication Instructions Dosage Frequency Start Date End Date Duration S tatus Claritin 10 mg 1 Tablet by Oral route 1 time per day Sep, Active Vitamin D 2,000 unit 1 Capsule by Oral route 1 time per day Aug, Active Clonazepam 2 mg 1 Tablet by Oral rou te 1 time per day at bedtime for sleep and worry Sep, Active Lisinopril 5 mg 1 Tablet by Oral route 1 time per day Jun, Active Fish Oil 500 mg 2 Tablet 1 time per day Jul, Active cyclobenzaprine 10 mg 0.5-1 Tablet by Oral route 3 nicola es per day Jan, Active Hydrocodone-Acetaminophen 5-500 mg 1 Cap lyn by Oral route 3 times per day PRN pain Jan, Active RESULTS No Results PROCEDURES No Known procedures [...] arthroscopic knees Hospitalization History surgeries Hospitalization History [facility] unit for depression 200 4
--- OUTSIDE RECORDS SUMMARY | 2019-09-29 06:18 | XMS REPORT ---
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 .42 Active [id number] Problem Major depressive disorder, r ecurrent episode, severe, without mention of psychotic behavior 296.33 Active 72123585 Problem Depression, major, recurrent, moderate F33.1 Active [id number] ALLERGIES No Information ENCOUNTERS Encounter Location Date Diagnosis [facility] [address] [id number] [address] [place] [id number] 12 Aug, 2018 Major depression F32.9 [place] [address] [id number] [address] [place] [phone] Jul, [facility] [address] [id number] [address] [place] [phone] Jun, Major depression F32.9 [facility] [address] [id number] [address] [place] [phone] Jun, Major depression F32.9 and G eneralized anxiety disorder F41.1 [facility] [address] [id number] [address] [place] [phone] Mar, Major depression F32.9 [facility] [address] [id number] [address] [place] [id number] Mar, Major depression F32.9 ; Gen eralized anxiety disorder F41.1 and BMI 40.0-44.9, adult Z68.41 [place] [address] [id number] [address] [place] [phone] Jan, [facility] [address] [facility] [id number] [address] [place] [id number] November, Major depression F32.9 ; Gen eralized anxiety disorder F41.1 and BMI 45.0-49.9, adult Z68.42 [facility] [address] [facility] [id number] [address] [place] [phone] Jul, Major depression F32.9 ; Gen eralized anxiety disorder F41.1 and BMI 45.0-49.9, adult Z68.42 [facility] [address] [facility] [id number] [address] [place] [phone] Apr, Major depression F32.9 and G eneralized anxiety disorder F41.1 [facility] [address] [facility] [id number] [address] [place] [id number] Jan, Generalized anxiety disorder F41.1 and Depression, major, recurrent, moderate F33.1 [facility] [address] [facility] [id number] [address] [place] [phone] Oct, Generalized anxiety disorder F41.1 and Major depression F32.9 [facility] [address] [facility] [id number] [address] [place] [phone] Jul, Generalized anxiety disorder F41.1 and Depression, major, recurrent, moderate F33.1 [facility] [address] [facility] [id number] [address] [place] [phone] Jun, [facility] [address] [facility] [id number] [address] [place] [phone] Mar, [facility] [address] [facility] [id number] [address] [place] [phone] Mar, Generalized anxiety disorder F41.1 and Major depression F32.9 [facility] [address] [facility] [id number] [address] [place] [phone] Dec, [facility] [address] [id number] [address] [place] [phone] 15 Dec, 2015 Generalized anxiety disorder F41.1 and Major depression F32.9 [facility] [address] [id number] [address] [place] [phone] November, [facility] [address] [id number] [address] [place] [id number] Oct, [facility] [address] [id number] [address] [place] [id number] 16 Sep, 2015 Unspecified mood [affective] disorder F39 ; Generalized anxiety disorder F41.1 and Major depression F32.9 [facility] [address] [id number] [address] [place] [phone] Sep, [facility] [address] [id number] [address] [place] [phone] Aug, [facility] [address] [id number] [address] [place] [id number] Jul, [facility] [address] [id number] [address] [place] [phone] Jul, [facility] [address] [id number] [address] [place] [id number] Jun, [facility] [address] [id number] [address] [place] [phone] Jun, Major depression F32.9 ; Gen eralized anxiety disorder F41.1 and Unspecified mood [affective] disorder F39 [facility] [address] [id number] [address] [place] [phone] Jun, [facility] [address] [id number] [address] [place] [phone] Apr, [facility] [address] [id number] [address] [place] [phone] Mar, [facility] [address] [facility] [id number] [address] [place] [phone] Mar, Anxiety 300.00 and Major dep ressive disorder, recurrent episode, severe 296.33 [facility] [address] [id number] [address] [place] [id number] Feb, [facility] [address] [facility] [id number] [address] [place] [phone] Jan, [facility] [address] [facility] [id number] [address] [place] [id number] Dec, [facility] [address] [facility] [id number] [address] [place] [phone] Dec, [facility] [address] [facility] [id number] [address] [place] [id number] Dec, Major depressive disorder, r ecurrent episode, severe, without mention of psychotic behavior 296.33 ; Mood disorder 296.90 and Anxiety disorder, unspecified 300.00 [facility] [address] [facility] [id number] [address] [place] [id number] Oct, [facility] [address] [facility] [id number] [address] [place] [id number] Oct, [facility] [address] [facility] [id number] [address] [place] [phone] Sep, [facility] [address] [facility] [id number] [address] [place] [phone] Sep, [facility] [address] [facility] [id number] [address] [place] [phone] Sep, [facility] [address] [facility] [id number] [address] [place] [phone] Sep, [facility] [address] [facility] [id number] [address] [place] [phone] Sep, [facility] [address] [facility] [id number] [address] [place] [phone] Sep, [facility] [address] [facility] [id number] [address] [place] [phone] Aug, [facility] [address] [id number] [address] [place] [address], [place] [address] Aug, [facility] [address] [id number] [address] [place] [address], [place] [address] Aug, [facility] [address] [id number] [address] [place] [address], [place] [address] Jul, [facility] [address] [id number] [address] [place] [address], [place] [address] Jul, [facility] [address] [id number] [address] [place] [address], [place] [address] Jun, [facility] [address] [id number] [address] [place] [address], [place] [address] Jun, [facility] [address] [id number] [address] [place] [address], [place] [address] May, [facility] [address] [id number] [address] [place] [address], [place] [address] May, [facility] [address] [id number] [address] [place] [address], [place] [address] May, [facility] [address] [id number] [address] [place] [address], [place] [address] May, [facility] [address] [id number] [address] [place] [address], [place] [address] Apr, [facility] [address] [id number] [address] [place] [phone] Apr, [facility] [address] [id number] [address] [place] [address], [place] [address] Apr, [facility] [address] [id number] [address] [place] [address], [place] [address] Apr, [facility] [address] [id number] [address] [place] [address], [place] [address] Apr, [facility] [address] [id number] [address] [place] [address], [place] [address] Apr, [facility] [address] [id number] [address] [place] [address], [place] [address] Jan, [facility] [address] [id number] [address] [place] [address], [place] [address] Jan, [facility] [address] [id number] [address] [place] [address], [place] [address] November, [facility] [address] [id number] [address] [place] [address], [place] [address] November, [facility] [address] [id number] [address] [place] [address], [place] [address] Oct, [facility] [address] [id number] [address] [place] [address], [place] [address] Oct, [facility] [address] [id number] [address] [place] [address], [place] [address] Oct, [facility] [address] [id number] [address] [place] [address], [place] [address] Oct, [facility] [address] [id number] [address] [place] [address], [place] [address] Oct, [facility] [address] [id number] [address] [place] [address], [place] [address] Oct, [facility] [address] [id number] [address] [place] [address], [place] [address] Sep, [facility] [address] [id number] [address] [place] [address], [place] [address] Sep, [facility] [address] [id number] [address] [place] [address], [place] [address] Jul, [facility] [address] [id number] [address] [place] [address], [place] [address] Jul, [facility] [address] [id number] [address] [place] [address], [place] [address] Jun, [facility] [address] [id number] [address] [place] [address], [place] [address] Jun, [facility] [address] [id number] [address] [place] [address], [place] [address] May, [facility] [address] [id number] [address] [place] [address], [place] [address] May, [facility] [address] [id number] [address] [place] [address], [place] [address] Mar, [facility] [address] [id number] [address] [place] [address], [place] [address] Feb, [facility] [address] [id number] [address] [place] [address], [place] [address] Jan, [facility] [address] [id number] [address] [place] [address], [place] [address] Dec, [facility] [address] [id number] [address] [place] [address], [place] [address] Dec, [facility] [address] [id number] [address] [place] [address], [place] [address] November, [facility] [address] [id number] [address] [place] [address], [place] [address] November, [facility] [address] [id number] [address] [place] [address], [place] [address] Sep, [facility] [address] [id number] [address] [place] [address], [place] [address] Jun, [facility] [address] [id number] [address] [place] [address], [place] [address] Jun, [facility] [address] [id number] [address] [place] [address], [place] [address] Jun, [facility] [address] [id number] [address] [place] [address], [place] [address] Jun, [facility] [address] [id number] [address] [place] [address], [place] [address] Apr, [facility] [address] [id number] [address] [place] [address], [place] [address] Apr, [facility] [address] [id number] [address] [place] [address], [place] [address] Apr, [facility] [address] [id number] [address] [place] [address], [place] [address] Apr, [facility] [address] [id number] [address] [place] [address], [place] [address] Mar, [facility] [address] [id number] [address] [place] [address], [place] [address] Jan, [facility] [address] [id number] [address] [place] [address], [place] [address] Jan, [facility] [address] [id number] [address] [place] [address], [place] [address] Dec, [facility] [address] [id number] [address] [place] [address], [place] [address] November, [facility] [address] [id number] [address] [place] [address], [place] [address] November, [facility] [address] [id number] [address] [place] [address], [place] [address] November, [facility] [address] [id number] [address] [place] [address], [place] [address] November, [facility] [address] [id number] [address] [place] [address], [place] [address] Sep, [facility] [address] [id number] [address] [place] [address], [place] [address] Aug, [facility] [address] [id number] [address] [place] [address], [place] [address] May, [facility] [address] [id number] [address] [place] [address], [place] [address] May, [facility] [address] [id number] [address] [place] [address] Feb, [facility] [address] [id number] [address] [place] [address] Jun, [facility] [address] [id number] [address] [place] [address] Jun, [facility] [address] [id number] [address] [place] [phone] Apr, [facility] [address] [id number] [address] [place] [id number] Jun, [facility] [address] [facility] [id number] [address] [place] [phone] May, [facility] [address] [facility] [id number] [address] [place] [id number] May, IMMUNIZATIONS No Known Immunizations SOCIAL HISTORY Never Assessed REASON FOR VISIT PLAN OF CARE VITAL SIGNS Height 62.5 in 2014-09-24 Weight 255.25 lbs 2014-09-24 Temperature 98 degrees Fahrenheit 2014-09-24 Heart Rate 96 bpm 2014-09-24 Respiratory Rate 32 2014-09-24 Blood pressure systolic 104 mmHg 2014-09-24 Blood pressure diastolic 84 mmHg 2014-09-24 MEDICATIONS Unknown Medications RESULTS No Results PROCEDURES [...] arthroscopic knees Hospitalization History surgeries Hospitalization History [facility] unit for depression 200 4
--- OUTSIDE RECORDS SUMMARY | 2019-09-29 06:18 | XMS REPORT ---
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 Name Role Phone MANDOOCHOA FELDERA Unavailable PROBLEMS Type Condition ICD9-CM Code XZI91-YE Code Onset Dates Condition S tatus SNOMED Code Problem Major depression F32.9 Active 370 [id number] Problem Generalized anxiety disorder F41.1 A ctive 55855964 Problem Persistent disorder of initiating or maintaining sleep 307 .42 Active 93299697 Problem Depression, major, recurrent, moderate F33.1 Active 43679146 Problem Major depressive disorder, r ecurrent episode, severe, without mention of psychotic behavior 296.33 Active 34506041 ALLERGIES Substance Reaction Event Type Date Status Cipro anaphylaxis Drug Allergy Jun, Active raspberry hives Non Drug Allergy Jun, Active ENCOUNTERS Encounter Location Date Diagnosis [place] [id number] [place] [id number] [address] [place] [address] Oct, [place] [address] [place] [id number] [address] [place] [address] Jun, Major depression F32.9 and G eneralized anxiety disorder F41.1 [facility] [address] [facility] [id number] [address] [place] [address] Mar, Major depression F32.9 [facility] [address] [facility] [id number] [address] [place] [address] Mar, Major depression F32.9 ; Gen eralized anxiety disorder F41.1 and BMI 40.0-44.9, adult Z68.41 [facility] [address] [facility] [id number] [address] [place] [address] Jan, [facility] [address] [place] [id number] [address] [place] [address] November, Major depression F32.9 ; Gen eralized anxiety disorder F41.1 and BMI 45.0-49.9, adult Z68.42 [facility] [address] [facility] [id number] [address] [place] [address] Jul, Major depression F32.9 ; Gen eralized anxiety disorder F41.1 and BMI 45.0-49.9, adult Z68.42 [place] [address] [facility] [id number] [address] [place] [address] Apr, Major depression F32.9 and G eneralized anxiety disorder F41.1 [place] [address] [facility] [id number] [address] [place] [address] Jan, Generalized anxiety disorder F41.1 and Depression, major, recurrent, moderate F33.1 [place] [address] [facility] [id number] [address] [place] [address] Oct, Generalized anxiety disorder F41.1 and Major depression F32.9 [place] [address] [facility] [id number] [address] [place] [address] Jul, Generalized anxiety disorder F41.1 and Depression, major, recurrent, moderate F33.1 [place] [address] [facility] [id number] [address] [place] [address] Jun, [place] [address] [facility] [id number] [address] [place] [address] 15 Mar, 2016 [facility] [address] [facility] [id number] [address] [place] [address] 14 Mar, 2016 Generalized anxiety disorder F41.1 and Major depression F32.9 [place] [address] [facility] [id number] [address] [place] [address] Dec, [place] [address] [facility] [id number] [address] [place] [address] 15 Dec, 2015 Generalized anxiety disorder F41.1 and Major depression F32.9 [place] [address] [facility] [id number] [address] [place] [address] November, [facility] [address] [facility] [id number] [address] [place] [address] Oct, [facility] [address] [facility] [id number] [address] [place] [address] 16 Sep, 2015 Unspecified mood [affective] disorder F39 ; Generalized anxiety disorder F41.1 and Major depression F32.9 [facility] [address] [facility] [id number] [address] [place] [address] Sep, [facility] [address] [facility] [id number] [address] [place] [address] Aug, [facility] [address] [facility] [id number] [address] [place] [address] Jul, [facility] [address] [facility] [id number] [address] [place] [address] Jul, [facility] [address] [facility] [id number] [address] [place] [address] Jun, [facility] [address] [facility] [id number] [address] [place] [address] Jun, Major depression F32.9 ; Gen eralized anxiety disorder F41.1 and Unspecified mood [affective] disorder F39 [facility] [address] [facility] [id number] [address] [place] [address] Jun, [facility] [address] [facility] [id number] [address] [place] [address] Apr, [facility] [address] [facility] [id number] [address] [place] [address] Mar, [facility] [address] [place] [id number] [address] [place] [address] Mar, Anxiety 300.00 and Major dep ressive disorder, recurrent episode, severe 296.33 [facility] [address] [place] [id number] [address] [place] [address] Feb, [facility] [address] [id number] [address] [place] [address] Jan, [facility] [address] [id number] [address] [place] [address] Dec, [facility] [address] [facility] [id number] [address] [place] [address] Dec, [facility] [address] [id number] [address] [place] [address] Dec, Major depressive disorder, r ecurrent episode, severe, without mention of psychotic behavior 296.33 ; Mood disorder 296.90 and Anxiety disorder, unspecified 300.00 [facility] [address] [id number] [address] [place] [address] Oct, [facility] [address] [id number] [address] [place] [address] Oct, [facility] [address] [id number] [address] [place] [address] Sep, [facility] [address] [id number] [address] [place] [address] Sep, [facility] [address] [id number] [address] [place] [address] Sep, [facility] [address] [id number] [address] [place] [address] Sep, [facility] [address] [id number] [address] [place] [address] Sep, [facility] [address] [id number] [address] [place] [address] Sep, [facility] [address] [facility] [id number] [address] [place] [address] Aug, [facility] [address] [id number] [address] [place] [address] Aug, [facility] [address] [id number] [address] [place] [address], [place] [address] Aug, [facility] [address] [id number] [address] [place] [address], [place] [address] Jul, [facility] [address] [id number] [address] [place] [address], [place] [address] Jul, [facility] [address] [id number] [address] [place] [address], [place] [address] Jun, [facility] [address] [id number] [address] [place] [address], [place] [address] Jun, [facility] [address] [id number] [address] [place] [address], [place] [address] May, [facility] [address] [id number] [address] [place] [address], [place] [address] May, [facility] [address] [id number] [address] [place] [address], [place] [address] May, [facility] [address] [id number] [address] [place] [address], [place] [address] May, [facility] [address] [id number] [address] [place] [address], [place] [address] Apr, [facility] [address] [id number] [address] [place] [address], [place] [address] Apr, [facility] [address] [id number] [address] [place] [address], [place] [address] Apr, [facility] [address] [id number] [address] [place] [address], [place] [address] Apr, [facility] [address] [id number] [address] [place] [address], [place] [address] Apr, [facility] [address] [id number] [address] [place] [address], [place] [address] Apr, [facility] [address] [id number] [address] [place] [address], [place] [address] Jan, [facility] [address] [id number] [address] [place] [address], [place] [address] Jan, [facility] [address] [id number] [address] [place] [address], [place] [address] November, [facility] [address] [id number] [address] [place] [address], [place] [address] November, [facility] [address] [id number] [address] [place] [address], [place] [address] Oct, [facility] [address] [id number] [address] [place] [address], [place] [address] Oct, [facility] [address] [id number] [address] [place] [address], [place] [address] Oct, [facility] [address] [id number] [address] [place] [address], [place] [address] Oct, [facility] [address] [id number] [address] [place] [address], [place] [address] Oct, [facility] [address] [id number] [address] [place] [address], [place] [address] Oct, [facility] [address] [id number] [address] [place] [address], [place] [address] Sep, [facility] [address] [id number] [address] [place] [address], [place] [address] Sep, [facility] [address] [id number] [address] [place] [address], [place] [address] Jul, [facility] [address] [id number] [address] [place] [address], [place] [address] Jul, [facility] [address] [id number] [address] [place] [address], [place] [address] Jun, [facility] [address] [id number] [address] [place] [address], [place] [address] Jun, [facility] [address] [id number] [address] [place] [address], [place] [address] May, [facility] [address] [id number] [address] [place] [address], [place] [address] May, [facility] [address] [id number] [address] [place] [address], [place] [address] Mar, [facility] [address] [id number] [address] [place] [address], [place] [address] Feb, [facility] [address] [id number] [address] [place] [address], [place] [address] Jan, [facility] [address] [id number] [address] [place] [address], [place] [address] Dec, [facility] [address] [id number] [address] [place] [address], [place] [address] Dec, [facility] [address] [id number] [address] [place] [address], [place] [address] November, [facility] [address] [id number] [address] [place] [address], [place] [address] November, [facility] [address] [id number] [address] [place] [address], [place] [address] Sep, [facility] [address] [id number] [address] [place] [address], [place] [address] Jun, [facility] [address] [id number] [address] [place] [address], [place] [address] Jun, [facility] [address] [id number] [address] [place] [address], [place] [address] Jun, [facility] [address] [id number] [address] [place] [address], [place] [address] Jun, [facility] [address] [id number] [address] [place] [address], [place] [address] Apr, [facility] [address] [id number] [address] [place] [address], [place] [address] Apr, [facility] [address] [id number] [address] [place] [address], [place] [address] Apr, [facility] [address] [id number] [address] [place] [address], [place] [address] Apr, [facility] [address] [id number] [address] [place] [address], [place] [address] Mar, [facility] [address] [id number] [address] [place] [address], [place] [address] Jan, [facility] [address] [id number] [address] [place] [address], [place] [address] Jan, [facility] [address] [id number] [address] [place] [address], [place] [address] Dec, [facility] [address] [id number] [address] [place] [address], [place] [address] November, [facility] [address] [id number] [address] [place] [address], [place] [address] November, [facility] [address] [id number] [address] [place] [address], [place] [address] November, [facility] [address] [id number] [address] [place] [address], [place] [address] November, [facility] [address] [id number] [address] [place] [address], [place] [address] Sep, [facility] [address] [id number] [address] [place] [address], [place] [address] Aug, [facility] [address] [id number] [address] [place] [address], [place] [address] May, [facility] [address] [id number] [address] [place] [address], [place] [address] May, [facility] [address] [id number] [address] [place] [address], [place] [address] Feb, [facility] [address] [id number] [address] [place] [address] Jun, [facility] [address] [facility] [id number] [address] [place] [address] Jun, [facility] [address] [facility] [id number] [address] [place] [address] Apr, [facility] [address] [facility] [id number] [address] [place] [address] Jun, [facility] [address] [facility] [id number] [address] [place] [address] May, [facility] [address] [facility] [id number] [address] [place] [address] May, IMMUNIZATIONS No Known Immunizations SOCIAL HISTORY Never Assessed REASON FOR VISIT f/u Patrick-Giulia, contract and PDM PLAN OF CARE Activity Details Follow Up 4 Months Reason: VITAL SIGNS Height 62.5 in 2018-06-26 Weight 208.5 lbs 2018-06-26 Heart Rate 96 bpm 2018-06-26 Respiratory Rate 20 2018-06-26 BMI 37.52 kg/m2 2018-06-26 Blood pressure systolic 126 mmHg 2018-06-26 Blood pressure diastolic 78 mmHg 2018-06-26 MEDICATIONS Medication Instructions Dosage Frequency Start Date End Date Duration S tatus Benadryl 25 MG Orally Once a day 2 capsules 24h Active cyclobenzaprine 10 mg 0.5-1 Tablet by Oral route 3 nicola es per day Jan, Active Venlafaxine HCl 37.5 MG Orally every noon 1 tablet Active Potassium Bicarb-Citric Acid 10 MEQ Orally 2 times a day 1 tablet 12h Active Lisinopril 10 MG 1 Tablet by Oral route 1 time per day 1 Jun, Active Simvastatin 40 MG Orally Once a day 1 tablet in the evening 24h Active HydrOXYzine Pamoate 25 MG Orally twice a day as needed 1 capsule Dec, Active Levothyroxine Sodium 50 MCG Orally Once a day 1 tablet 24h Active Mometasone Furoate 50 MCG/ACT Nasally Once a day 2 sprays in each nos tril 24h Active Vitamin D 2,000 unit 1 Capsule by Oral route 1 time per day Aug, Active Venlafaxine HCl 75 MG Orally every morning 1 tablet Active Victoza 18 MG/3ML Subcutaneous Once a day 0.12 24h Active Mirtazapine 15 MG Orally at bedtime 1 tablet Mar, Active Abilify 15 mg Orally Once a day 1 tablet 24h Active Metformin HCl 500 MG Orally Twice a day 1 tablet 12h Active Aspirin Adult Low Strength 81 MG Orally Once a day 1 tablet 24h Active Meloxicam 7.5 MG Orally twice a day 1 tablet 12h Active Gabapentin 600 MG Orally Three times a day 1 tablet 8h Active Clonazepam 1 MG Orally Once a day as needed 1 tablet Active Fish Oil 1000 MG Orally Twice a day 2 Tablet 1 time per day 12h Jul, Active Vitamin B Complex Active Myrbetriq 50 MG Orally Once a day 1 tablet 24h Active RESULTS No Results PROCEDURES No Known [...]
--- OUTSIDE RECORDS SUMMARY | 2019-09-29 06:18 | XMS REPORT ---
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 Active 13392411 Problem Major depressive disorder, r ecurrent episode, severe, without mention of psychotic behavior 296.33 Active 73245180 Problem Depression, major, recurrent, moderate F33.1 Active [id number] ALLERGIES No Information ENCOUNTERS Encounter Location Date Diagnosis [facility], [place] [address] [id number] [address] [place] [id number] 12 Aug, 2018 Major depression F32.9 [place] [address] [id number] [address] [place] [address] Jul, [facility] [place] [address] [id number] [address] [place] [address] Jun, Major depression F32.9 [facility] [place] [address] [id number] [address] [place] [phone] Jun, Major depression F32.9 and G eneralized anxiety disorder F41.1 [facility] [place] [address] [id number] [address] [place] [address] Mar, Major depression F32.9 [facility] [place] [address] [id number] [address] [place] [address] Mar, Major depression F32.9 ; Gen eralized anxiety disorder F41.1 and BMI 40.0-44.9, adult Z68.41 [place] [address] [id number] [address] [place] [address] Jan, [facility] [place] [address] [facility] [id number] [address] [place] [address] November, Major depression F32.9 ; Gen eralized anxiety disorder F41.1 and BMI 45.0-49.9, adult Z68.42 [facility] [place] [address] [facility] [id number] [address] [place] [address] Jul, Major depression F32.9 ; Gen eralized anxiety disorder F41.1 and BMI 45.0-49.9, adult Z68.42 [facility] [place] [address] [facility] [id number] [address] [place] [phone] Apr, Major depression F32.9 and G eneralized anxiety disorder F41.1 [facility] [place] [address] [facility] [id number] [address] [place] [phone] Jan, Generalized anxiety disorder F41.1 and Depression, major, recurrent, moderate F33.1 [facility] [place] [address] [facility] [id number] [address] [place] [phone] Oct, Generalized anxiety disorder F41.1 and Major depression F32.9 [facility] [place] [address] [facility] [id number] [address] [place] [phone] Jul, Generalized anxiety disorder F41.1 and Depression, major, recurrent, moderate F33.1 [facility] [place] [address] [facility] [id number] [address] [place] [phone] Jun, [facility] [place] [address] [facility] [id number] [address] [place] [phone] Mar, [facility] [place] [address] [facility] [id number] [address] [place] [phone] Mar, Generalized anxiety disorder F41.1 and Major depression F32.9 [facility] [place] [address] [facility] [id number] [address] [place] [phone] Dec, [facility] [place] [address] [id number] [address] [place] [id number] 15 Dec, 2015 Generalized anxiety disorder F41.1 and Major depression F32.9 [facility] [place] [address] [id number] [address] [place] [id number] November, [facility] [place] [address] [id number] [address] [place] [phone] Oct, [facility] [place] [address] [id number] [address] [place] [phone] 16 Sep, 2015 Unspecified mood [affective] disorder F39 ; Generalized anxiety disorder F41.1 and Major depression F32.9 [facility] [place] [address] [id number] [address] [place] [address] Sep, [facility] [place] [address] [id number] [address] [place] [phone] Aug, [facility] [place] [address] [id number] [address] [place] [phone] Jul, [facility] [place] [address] [id number] [address] [place] [id number] Jul, [facility] [place] [address] [id number] [address] [place] [id number] Jun, [facility] [place] [address] [id number] [address] [place] [phone] Jun, Major depression F32.9 ; Gen eralized anxiety disorder F41.1 and Unspecified mood [affective] disorder F39 [facility] [place] [address] [id number] [address] [place] [phone] Jun, [facility] [place] [address] [id number] [address] [place] [address] Apr, [facility] [place] [address] [id number] [address] [place] [phone] Mar, [facility] [place] [address] [facility] [id number] [address] [place] [address] Mar, Anxiety 300.00 and Major dep ressive disorder, recurrent episode, severe 296.33 [facility] [place] [address] [id number] [address] [place] [phone] Feb, [facility] [place] [address] [facility] [id number] [address] [place] [phone] Jan, [facility] [place] [address] [facility] [id number] [address] [place] [phone] Dec, [facility] [place] [address] [facility] [id number] [address] [place] [phone] Dec, [facility] [place] [address] [facility] [id number] [address] [place] [phone] Dec, Major depressive disorder, r ecurrent episode, severe, without mention of psychotic behavior 296.33 ; Mood disorder 296.90 and Anxiety disorder, unspecified 300.00 [facility] [place] [address] [facility] [id number] [address] [place] [phone] Oct, [facility] [place] [address] [facility] [id number] [address] [place] [phone] Oct, [facility] [place] [address] [facility] [id number] [address] [place] [phone] Sep, [facility] [place] [address] [facility] [id number] [address] [place] [phone] Sep, [facility] [place] [address] [facility] [id number] [address] [place] [address] Sep, [facility] [place] [address] [facility] [id number] [address] [place] [phone] Sep, [facility] [place] [address] [facility] [id number] [address] [place] [phone] Sep, [facility] [place] [address] [facility] [id number] [address] [place] [phone] Sep, [facility] [place] [address] [facility] [id number] [address] [place] [phone] Aug, [facility] [address] [id number] [address] [place] [address], [place] [address] Aug, [facility] [address] [id number] [address] [place] [address], [place] [address] Aug, [facility] [address] [id number] [address] [place] [address], [place] [address] Jul, [facility] [address] [id number] [address] [place] [address], [place] [address] Jul, [facility] [address] [id number] [address] [place] [address], [place] [address] Jun, [facility] [address] [id number] [address] [place] [address], [place] [address] Jun, [facility] [address] [id number] [address] [place] [address], [place] [address] May, [facility] [address] [id number] [address] [place] [address], [place] [address] May, [facility] [address] [id number] [address] [place] [address], [place] [address] May, [facility] [address] [id number] [address] [place] [address], [place] [address] May, [facility] [address] [id number] [address] [place] [address], [place] [address] Apr, [facility] [address] [id number] [address] [place] [phone] Apr, [facility] [address] [id number] [address] [place] [address], [place] [address] Apr, [facility] [address] [id number] [address] [place] [address], [place] [address] Apr, [facility] [address] [id number] [address] [place] [address], [place] [address] Apr, [facility] [address] [id number] [address] [place] [address], [place] [address] Apr, [facility] [address] [id number] [address] [place] [address], [place] [address] Jan, [facility] [address] [id number] [address] [place] [address], [place] [address] Jan, [facility] [address] [id number] [address] [place] [address], [place] [address] November, [facility] [address] [id number] [address] [place] [address], [place] [address] November, [facility] [address] [id number] [address] [place] [address], [place] [address] Oct, [facility] [address] [id number] [address] [place] [address], [place] [address] Oct, [facility] [address] [id number] [address] [place] [address], [place] [address] Oct, [facility] [address] [id number] [address] [place] [address], [place] [address] Oct, [facility] [address] [id number] [address] [place] [address], [place] [address] Oct, [facility] [address] [id number] [address] [place] [address], [place] [address] Oct, [facility] [address] [id number] [address] [place] [address], [place] [address] Sep, [facility] [address] [id number] [address] [place] [address], [place] [address] Sep, [facility] [address] [id number] [address] [place] [address], [place] [address] Jul, [facility] [address] [id number] [address] [place] [address], [place] [address] Jul, [facility] [address] [id number] [address] [place] [address], [place] [address] Jun, [facility] [address] [id number] [address] [place] [address], [place] [address] Jun, [facility] [address] [id number] [address] [place] [address], [place] [address] May, [facility] [address] [id number] [address] [place] [address], [place] [address] May, [facility] [address] [id number] [address] [place] [address], [place] [address] Mar, [facility] [address] [id number] [address] [place] [address], [place] [address] Feb, [facility] [address] [id number] [address] [place] [address], [place] [address] Jan, [facility] [address] [id number] [address] [place] [address], [place] [address] Dec, [facility] [address] [id number] [address] [place] [address], [place] [address] Dec, [facility] [address] [id number] [address] [place] [address], [place] [address] November, [facility] [address] [id number] [address] [place] [address], [place] [address] November, [facility] [address] [id number] [address] [place] [address], [place] [address] Sep, [facility] [address] [id number] [address] [place] [address], [place] [address] Jun, [facility] [address] [id number] [address] [place] [address], [place] [address] Jun, [facility] [address] [id number] [address] [place] [address], [place] [address] Jun, [facility] [address] [id number] [address] [place] [address], [place] [address] Jun, [facility] [address] [id number] [address] [place] [address], [place] [address] Apr, [facility] [address] [id number] [address] [place] [address], [place] [address] Apr, [facility] [address] [id number] [address] [place] [address], [place] [address] Apr, [facility] [address] [id number] [address] [place] [address], [place] [address] Apr, [facility] [address] [id number] [address] [place] [address], [place] [address] Mar, [facility] [address] [id number] [address] [place] [address], [place] [address] Jan, [facility] [address] [id number] [address] [place] [address], [place] [address] Jan, [facility] [address] [id number] [address] [place] [address], [place] [address] Dec, [facility] [address] [id number] [address] [place] [address], [place] [address] November, [facility] [address] [id number] [address] [place] [address], [place] [address] November, [facility] [address] [id number] [address] [place] [address], [place] [address] November, [facility] [address] [id number] [address] [place] [address], [place] [address] November, [facility] [address] [id number] [address] [place] [address], [place] [address] Sep, [facility] [address] [id number] [address] [place] [address], [place] [address] Aug, [facility] [address] [id number] [address] [place] [address], [place] [address] May, [facility] [address] [id number] [address] [place] [address], [place] [address] May, [facility] [address] [id number] [address] [place] [address] Feb, [facility] [place] [address] [facility] [id number] [address] [place] [address] Jun, [facility] [place] [address] [facility] [id number] [address] [place] [address] Jun, [facility] [place] [address] [facility] [id number] [address] [place] [address] Apr, [facility] [place] [address] [facility] [id number] [address] [place] [address] Jun, [facility] [place] [address] [facility] [id number] [address] [place] [address] May, [facility] [place] [address] [facility] [id number] [address] [place] [address] May, IMMUNIZATIONS No Known Immunizations SOCIAL HISTORY [...] arthroscopic knees Hospitalization History surgeries Hospitalization History [facility] unit for depression 200 4
--- OUTSIDE RECORDS SUMMARY | 2019-09-29 06:18 | XMS REPORT ---
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 Active 82548044 Problem Major depressive disorder, r ecurrent episode, severe, without mention of psychotic behavior 296.33 Active 60639138 Problem Depression, major, recurrent, moderate F33.1 Active [id number] ALLERGIES No Information ENCOUNTERS Encounter Location Date Diagnosis [place] [address] [id number] [place] [id number] Aug, Major depression F32.9 [place] [address] [address] [place] [id number] [place] [address] Jul, [place] [address] [address] [place] [id number] [address] [place] [address] Jun, Major depression F32.9 [place] [address] [address] [place] [id number] [address] [place] [address] Jun, Major depression F32.9 and G eneralized anxiety disorder F41.1 [place] [address] [address] [facility] [id number] [address] [place] [address] Mar, Major depression F32.9 [place] [address] [address] [place] [id number] [place] [address] Mar, Major depression F32.9 ; Gen eralized anxiety disorder F41.1 and BMI 40.0-44.9, adult Z68.41 [place] [address] [address] [place] [id number] [address] [place] [address] Jan, [facility] [address] [id number] [address] [place] [address] November, Major depression F32.9 ; Gen eralized anxiety disorder F41.1 and BMI 45.0-49.9, adult Z68.42 [facility] [address] [id number] [address] [place] [address] Jul, Major depression F32.9 ; Gen eralized anxiety disorder F41.1 and BMI 45.0-49.9, adult Z68.42 [facility] [address] [id number] [address] [place] [address] Apr, Major depression F32.9 and G eneralized anxiety disorder F41.1 [facility] [address] [id number] [address] [place] [address] Jan, Generalized anxiety disorder F41.1 and Depression, major, recurrent, moderate F33.1 [facility] [address] [id number] [address] [place] [phone] Oct, Generalized anxiety disorder F41.1 and Major depression F32.9 [facility] [address] [id number] [address] [place] [address] Jul, Generalized anxiety disorder F41.1 and Depression, major, recurrent, moderate F33.1 [facility] [address] [id number] [address] [place] [address] Jun, [facility] [address] [id number] [address] [place] [address] 15 Mar, 2016 [facility] [address] [id number] [address] [place] [address] 14 Mar, 2016 Generalized anxiety disorder F41.1 and Major depression F32.9 [facility] [address] [id number] [address] [place] [address] Dec, [facility] [address] [facility] [id number] [address] [place] [address] Dec, Generalized anxiety disorder F41.1 and Major depression F32.9 [facility] [address] [id number] [address] [place] [address] November, [facility] [address] [id number] [address] [place] [address] Oct, [facility] [address] [id number] [address] [place] [address] 16 Sep, 2015 Unspecified mood [affective] disorder F39 ; Generalized anxiety disorder F41.1 and Major depression F32.9 [facility] [address] [id number] [address] [place] [address] Sep, [facility] [address] [id number] [address] [place] [address] Aug, [facility] [address] [id number] [address] [place] [address] Jul, [facility] [address] [id number] [address] [place] [address] Jul, [facility] [address] [id number] [address] [place] [address] Jun, [facility] [address] [id number] [address] [place] [address] Jun, Major depression F32.9 ; Gen eralized anxiety disorder F41.1 and Unspecified mood [affective] disorder F39 [facility] [address] [id number] [address] [place] [address] Jun, [facility] [address] [id number] [address] [place] [address] Apr, [facility] [address] [id number] [address] [place] [address] Mar, [facility] [address] [facility] [id number] [address] [place] [address] Mar, Anxiety 300.00 and Major dep ressive disorder, recurrent episode, severe 296.33 [facility] [address] [id number] [address] [place] [address] Feb, [facility] [place] [address] [id number] [address] [place] [address] Jan, [facility] [place] [address] [id number] [address] [place] [address] Dec, [facility] [address] [id number] [address] [place] [address] Dec, [facility] [address] [id number] [address] [place] [address] Dec, Major depressive disorder, r ecurrent episode, severe, without mention of psychotic behavior 296.33 ; Mood disorder 296.90 and Anxiety disorder, unspecified 300.00 [facility] [address] [id number] [address] [place] [address] Oct, [facility] [address] [id number] [address] [place] [address] Oct, [facility] [address] [id number] [address] [place] [address] Sep, [facility] [address] [id number] [address] [place] [address] Sep, [facility] [address] [id number] [address] [place] [address] Sep, [facility] [address] [id number] [address] [place] [address] Sep, [facility] [place] [address] [id number] [address] [place] [address] Sep, [facility] [place] [address] [id number] [address] [place] [address] Sep, [facility] [place] [address] [id number] [address] [place] [address] Aug, [facility] [address] [id number] [address] [place] [address] Aug, [facility] [address] [id number] [address] [place] [address], [place] [address] Aug, [facility] [address] [id number] [address] [place] [address], [place] [address] Jul, [facility] [address] [id number] [address] [place] [address], [place] [address] Jul, [facility] [address] [id number] [address] [place] [address], [place] [address] Jun, [facility] [address] [id number] [address] [place] [address], [place] [address] Jun, [facility] [address] [id number] [address] [place] [address], [place] [address] May, [facility] [address] [id number] [address] [place] [address], [place] [address] May, [facility] [address] [id number] [address] [place] [address], [place] [address] May, [facility] [address] [id number] [address] [place] [address], [place] [address] May, [facility] [address] [id number] [address] [place] [address], [place] [address] Apr, [facility] [address] [id number] [address] [place] [address], [place] [address] Apr, [facility] [address] [id number] [address] [place] [address] Apr, [facility] [address] [id number] [address] [place] [address], [place] [address] Apr, [facility] [address] [id number] [address] [place] [address] Apr, [facility] [address] [id number] [address] [place] [address] Apr, [facility] [address] [id number] [address] [place] [address], [place] [address] Jan, [facility] [address] [id number] [address] [place] [address], [place] [address] Jan, [facility] [address] [id number] [address] [place] [address], [place] [address] November, [facility] [address] [id number] [address] [place] [address], [place] [address] November, [facility] [address] [id number] [address] [place] [address], [place] [address] Oct, [facility] [address] [id number] [address] [place] [address], [place] [address] Oct, [facility] [address] [id number] [address] [place] [address], [place] [address] Oct, [facility] [address] [id number] [address] [place] [address], [place] [address] Oct, [facility] [address] [id number] [address] [place] [address], [place] [address] Oct, [facility] [address] [id number] [address] [place] [address], [place] [address] Oct, [facility] [address] [id number] [address] [place] [address], [place] [address] Sep, [facility] [address] [id number] [address] [place] [address], [place] [address] Sep, [facility] [address] [id number] [address] [place] [address], [place] [address] Jul, [facility] [address] [id number] [address] [place] [address], [place] [address] Jul, [facility] [address] [id number] [address] [place] [address], [place] [address] Jun, [facility] [address] [id number] [address] [place] [address], [place] [address] Jun, [facility] [address] [id number] [address] [place] [address], [place] [address] May, [facility] [address] [id number] [address] [place] [address], [place] [address] May, [facility] [address] [id number] [address] [place] [address], [place] [address] Mar, [facility] [address] [id number] [address] [place] [address], [place] [address] Feb, [facility] [address] [id number] [address] [place] [address], [place] [address] Jan, [facility] [address] [id number] [address] [place] [address], [place] [address] Dec, [facility] [address] [id number] [address] [place] [address], [place] [address] Dec, [facility] [address] [id number] [address] [place] [address], [place] [address] November, [facility] [address] [id number] [address] [place] [address], [place] [address] November, [facility] [address] [id number] [address] [place] [address], [place] [address] Sep, [facility] [address] [id number] [address] [place] [address], [place] [address] Jun, [facility] [address] [id number] [address] [place] [address], [place] [address] Jun, [facility] [address] [id number] [address] [place] [address], [place] [address] Jun, [facility] [address] [id number] [address] [place] [address], [place] [address] Jun, [facility] [address] [id number] [address] [place] [address], [place] [address] Apr, [facility] [address] [id number] [address] [place] [address], [place] [address] Apr, [facility] [address] [id number] [address] [place] [address], [place] [address] Apr, [facility] [address] [id number] [address] [place] [address], [place] [address] Apr, [facility] [address] [id number] [address] [place] [address], [place] [address] Mar, [facility] [address] [id number] [address] [place] [address], [place] [address] Jan, [facility] [address] [id number] [address] [place] [address], [place] [address] Jan, [facility] [address] [id number] [address] [place] [address], [place] [address] Dec, [facility] [address] [id number] [address] [place] [address], [place] [address] November, [facility] [address] [id number] [address] [place] [address], [place] [address] November, [facility] [address] [id number] [address] [place] [address], [place] [address] November, [facility] [address] [id number] [address] [place] [address], [place] [address] November, [facility] [address] [id number] [address] [place] [address], [place] [address] Sep, [facility] [address] [id number] [address] [place] [address], [place] [address] Aug, [facility] [address] [id number] [address] [place] [address], [place] [address] May, [facility] [address] [id number] [address] [place] [address], [place] [address] May, [facility] [address] [id number] [address] [place] [address], [place] [address] Feb, [facility] [address] [facility] [id number] [address] [place] [address] Jun, [facility] [address] [facility] [id number] [address] [place] [address] Jun, [facility] [address] [facility] [id number] [address] [place] [address] Apr, [facility] [address] [facility] [id number] [address] [place] [address] Jun, [facility] [address] [facility] [id number] [address] [place] [address] May, [facility] [address] [facility] [id number] [address] [place] [address] May, IMMUNIZATIONS No Known Immunizations SOCIAL HISTORY Never Assessed [place] [place] VITAL SIGNS MEDICATIONS Unknown [...] arthroscopic knees Hospitalization History surgeries Hospitalization History [facility] unit for depression 200 4
--- OUTSIDE RECORDS SUMMARY | 2019-09-29 06:19 | XMS REPORT ---
Author Author Lisa Becerril Organization [facility] Address Unknown Care Team Providers Care Brass Molder Name Role Phone YONIS Becerril Unavailable PROBLEMS Type Condition ICD9-CM Code [id number] Code Onset Dates Condition S tatus SNOMED Code Problem Major depression F32.9 Active 370 524219 Problem Generalized anxiety disorder F41.1 A ctive 38618893 Problem Persistent disorder of initiating or maintaining sleep 307 .42 Active 81753587 Problem Depression, major, recurrent, moderate F33.1 Active 79719178 Problem Major depressive disorder, r ecurrent episode, severe, without mention of psychotic behavior 296.33 Active [id number] ALLERGIES Substance Reaction Event Type Date Status Cipro anaphylaxis Drug Allergy Jan, Active raspberry hives Non Drug Allergy Jan, Active ENCOUNTERS Encounter Location Date Diagnosis [facility] [address] [id number] [address] [place] [address] Oct, [facility] [id number] [place] [address] Jul, Major depression F32.9 ; Gen eralized anxiety disorder F41.1 and BMI 45.0-49.9, adult Z68.42 [facility] [address] [facility] [id number] [address] [place] [address] Apr, Major depression F32.9 and G eneralized anxiety disorder F41.1 [facility] [address] [facility] [id number] [address] [place] [address] Jan, Generalized anxiety disorder F41.1 and Depression, major, recurrent, moderate F33.1 [facility] [address] [facility] [id number] [address] [place] [address] Oct, Generalized anxiety disorder F41.1 and Major depression F32.9 [address] [id number] [id number] [address] [place] [address] 11 Jul, 2016 Generalized anxiety disorder F41.1 and Depression, major, recurrent, moderate F33.1 [facility] [address] [id number] [address] [place] [address] 14 Jun, 2016 [facility] [address] [id number] [address] [place] [address] 15 Mar, 2016 [facility] [address] [id number] [address] [place] [address] 14 Mar, 2016 Generalized anxiety disorder F41.1 and Major depression F32.9 [facility] [address] [id number] [address] [place] [address] 15 Dec, 2015 [facility] [address] [id number] [address] [place] [address] 15 Dec, 2015 Generalized anxiety disorder F41.1 and Major depression F32.9 [facility] [address] [id number] [address] [place] [address] November, [facility] [address] [id number] [address] [place] [address] 11 Oct, 2015 [facility] [address] [facility] [id number] [address] [place] [address] 16 Sep, 2015 Unspecified mood [affective] disorder F39 ; Generalized anxiety disorder F41.1 and Major depression F32.9 [facility] [address] [id number] [address] [place] [address] 14 Sep, 2015 [facility] [address] [id number] [address] [place] [address] 15 Aug, 2015 [facility] [address] [id number] [address] [place] [address] 18 Jul, 2015 [facility] [address] [id number] [address] [place] [address] 18 Jul, 2015 [facility] [address] [id number] [address] [place] [address] Jun, [facility] [address] [facility] [id number] [address] [place] [address] Jun, Major depression F32.9 ; Gen eralized anxiety disorder F41.1 and Unspecified mood [affective] disorder F39 [facility] [id number] [address] [place] [address] Jun, [facility] [id number] [address] [place] [address] Apr, [facility] [id number] [address] [place] [address] Mar, [facility] [id number] [place] [address] Mar, Anxiety 300.00 and Major dep ressive disorder, recurrent episode, severe 296.33 [facility] [id number] [address] [place] [address] Feb, [facility] [id number] [address] [place] [address] Jan, [facility] [id number] [address] [place] [address] Dec, [facility] [id number] [address] [place] [address] Dec, [facility] [id number] [address] [place] [address] Dec, Major depressive disorder, r ecurrent episode, severe, without mention of psychotic behavior 296.33 ; Mood disorder 296.90 and Anxiety disorder, unspecified 300.00 [facility] [id number] [address] [place] [address] Oct, [facility] [id number] [address] [place] [address] Oct, [facility] [id number] [address] [place] [address] Sep, [facility] [address] [id number] [address] [place] [address], [place] [address] Sep, [facility] [address] [id number] [address] [place] [address], [place] [address] Sep, [facility] [address] [id number] [address] [place] [address], [place] [address] Sep, [facility] [address] [id number] [address] [place] [address], [place] [address] Sep, [facility] [address] [id number] [address] [place] [address], [place] [address] Sep, [facility] [address] [id number] [address] [place] [address], [place] [address] Aug, [facility] [address] [id number] [address] [place] [address], [place] [address] Aug, [facility] [address] [id number] [address] [place] [address], [place] [address] Aug, [facility] [address] [id number] [address] [place] [address], [place] [address] Jul, [facility] [address] [id number] [address] [place] [address], [place] [address] Jul, [facility] [address] [id number] [address] [place] [address], [place] [address] Jun, [facility] [address] [id number] [address] [place] [address], [place] [address] Jun, [facility] [address] [id number] [address] [place] [address], [place] [address] May, [facility] [address] [id number] [address] [place] [address], [place] [address] May, [facility] [address] [id number] [address] [place] [address], [place] [address] May, [facility] [address] [id number] [address] [place] [address], [place] [address] May, [facility] [address] [id number] [address] [place] [address], [place] [address] Apr, [facility] [address] [id number] [address] [place] [address], [place] [address] Apr, [facility] [address] [id number] [address] [place] [address], [place] [address] Apr, [facility] [address] [id number] [address] [place] [address], [place] [address] Apr, [facility] [address] [id number] [address] [place] [address], [place] [address] Apr, [facility] [address] [id number] [address] [place] [address], [place] [address] Apr, [facility] [address] [id number] [address] [place] [address], [place] [address] Jan, [facility] [address] [id number] [address] [place] [address], [place] [address] Jan, [facility] [address] [id number] [address] [place] [address], [place] [address] November, [facility] [address] [id number] [address] [place] [address], [place] [address] November, [facility] [address] [id number] [address] [place] [address], [place] [address] Oct, [facility] [address] [id number] [address] [place] [address], [place] [address] Oct, [facility] [address] [id number] [address] [place] [address], [place] [address] Oct, [facility] [address] [id number] [address] [place] [address], [place] [address] Oct, [facility] [address] [id number] [address] [place] [address], [place] [address] Oct, [facility] [address] [id number] [address] [place] [address], [place] [address] Oct, [facility] [address] [id number] [address] [place] [address], [place] [address] Sep, [facility] [address] [id number] [address] [place] [address], [place] [address] Sep, [facility] [address] [id number] [address] [place] [address], [place] [address] Jul, [facility] [address] [id number] [address] [place] [address], [place] [address] Jul, [facility] [address] [id number] [address] [place] [address], [place] [address] Jun, [facility] [address] [id number] [address] [place] [address], [place] [address] Jun, [facility] [address] [id number] [address] [place] [address], [place] [address] May, [facility] [address] [id number] [address] [place] [address], [place] [address] May, [facility] [address] [id number] [address] [place] [address], [place] [address] Mar, [facility] [address] [id number] [address] [place] [address], [place] [address] Feb, [facility] [address] [id number] [address] [place] [address] Jan, [facility] [address] [id number] [address] [place] [address], [place] [address] Dec, [facility] [address] [id number] [address] [place] [address], [place] [address] Dec, [facility] [address] [id number] [address] [place] [address], [place] [address] November, [facility] [address] [id number] [address] [place] [address], [place] [address] November, [facility] [address] [id number] [address] [place] [address], [place] [address] Sep, [facility] [address] [id number] [address] [place] [address], [place] [address] Jun, [facility] [address] [id number] [address] [place] [address], [place] [address] Jun, [facility] [address] [id number] [address] [place] [address], [place] [address] Jun, [facility] [address] [id number] [address] [place] [address], [place] [address] Jun, [facility] [address] [id number] [address] [place] [address], [place] [address] Apr, [facility] [address] [id number] [address] [place] [address], [place] [address] Apr, [facility] [address] [id number] [address] [place] [address], [place] [address] Apr, [facility] [address] [id number] [address] [place] [address], [place] [address] Apr, [facility] [address] [id number] [address] [place] [address], [place] [address] Mar, [facility] [address] [id number] [address] [place] [address], [place] [address] Jan, [facility] [address] [id number] [address] [place] [address], [place] [address] Jan, [facility] [address] [id number] [address] [place] [address], [place] [address] Dec, [facility] [address] [id number] [address] [place] [address], [place] [address] November, [facility] [address] [id number] [address] [place] [address], [place] [address] November, [facility] [address] [id number] [address] [place] [address] November, [facility] [address] [id number] [address] [place] [address] November, [facility] [address] [id number] [address] [place] [address] Sep, [facility] [address] [id number] [address] [place] [address] Aug, [facility] [address] [id number] [address] [place] [address] May, [facility] [address] [id number] [address] [place] [address] May, [facility] [address] [id number] [address] [place] [address] Feb, [facility] [address] [id number] [address] [place] [address] Jun, [facility] [address] [id number] [address] [place] [address] Jun, [facility] [address] [id number] [address] [place] [address] Apr, [facility] [address] [id number] [address] [place] [address] Jun, [facility] [address] [id number] [address] [place] [address] May, [facility] [address] [id number] [address] [place] [address] May, IMMUNIZATIONS No Known Immunizations SOCIAL HISTORY Never Assessed REASON FOR VISIT f/DARIELA Motta PLAN OF CARE Activity Details Follow Up 3 Months Reason: VITAL SIGNS Height 62.5 in 2017-02-13 Heart Rate 88 bpm 2017-02-13 Respiratory Rate 20 2017-02-13 Blood pressure systolic 118 mmHg 2017-02-13 Blood pressure diastolic 80 mmHg 2017-02-13 MEDICATIONS Medication Instructions Dosage Frequency Start Date End Date Duration S tatus Actos 30 MG Orally Once a day 1 tablet 24h A ctive HydrOXYzine Pamoate 25 MG Orally twice a day 1 capsule as needed 12 h Dec, 30 days Active Clonazepam 2 MG Orally Once a day 1 tablet 24h 30 da ys Active Potassium Bicarb-Citric Acid 10 MEQ Orally 2 times a day 1 tablet 12h Active Lisinopril 5 MG 1 Tablet by Oral route 1 time per day Jun, Active Myrbetriq 50 MG Orally Once a day 1 tablet 24h Active Zetia 10 MG Orally Once a day 1 tablet 24h A ctive Aspirin Adult Low Strength 81 MG Orally Once a day 1 tablet 24h Active Benadryl 25 MG Orally every 6 hrs 1 capsule as needed 6h Active Levothyroxine Sodium 50 MCG Orally Once a day 1 tablet 24h Active Fish Oil 1000 MG Orally Twice a day 2 Tablet 1 time per day 12h 14 Jul, 2013 Active cyclobenzaprine 10 mg 0.5-1 Tablet by Oral route 3 nicola es per day Jan, Active Vitamin D 2,000 unit 1 Capsule by Oral route 1 time per day Aug, Active Mometasone Furoate 50 MCG/ACT Nasally Once a day 2 sprays in each nos tril 24h Active Gabapentin 600 MG Orally Three times a day 1 tablet 8h Active Venlafaxine HCl 37.5 MG Orally Once a day 1 tablet 24h 30 days Active Metformin HCl 1000 MG Orally Twice a day 1 tablet with meals 12h Active Claritin 10 mg 1 Tablet by Oral route 1 time per day Sep, Active Mirtazapine 15 MG Orally Once a day 1 tablet before bedtime in the evening 24h Mar, 30 days Active Vitamin B Complex Active Abilify 15 MG Orally Once a day 1 tablet 24h 30 days Active Niaspan 750 MG Orally Once a day 1 tablet at bedtime 24h Active Meloxicam 7.5 MG Orally twice a day 1 tablet 12h Active Venlafaxine HCl 75 MG Orally Once a day 1 tablet 24h 30 days Active Simvastatin 40 MG Orally Once a day 1 tablet in the evening 24h Active RESULTS No Results PROCEDURES Procedure Date Ordered Result Body Site [facility] VISIT ESTABLISHED PATIENT February 13, 2017 INSTRUCTIONS MEDICATIONS ADMINISTERED No Known Medications MEDICAL (GENERAL) HISTORY Type Description Date Medical History diabetes type II Medical History hypercholesterolemia Medical History hypertriglyceridemia Medical History peripheral neuropathy (bilateral LEs) Surgical History Right hand carpal tunnel surgery 01/2015 Surgical History gallbladder Surgical History tubal ligation Surgical History appendectomy Surgical History hiatal hernia Surgical History bilateral arthroscopic knees Hospitalization History surgeries Hospitalization History [facility] unit for depression 200 4
--- OUTSIDE RECORDS SUMMARY | 2019-09-29 06:19 | XMS REPORT ---
Author Lisa Traore Organization [employer] Address Unknown Phone Unavailable Care Team Providers Care Motor Pool Driver Name Role Phone YONIS MCKEON CP Unavailable Allergies No Known Allergies Problems Problem Type Condition Code Onset Dates Condition Statu s Problem Persistent disorder of initiating or maintaining sleep 307.42 Active Problem Major depressive disorder, r ecurrent episode, severe, without mention of psychotic behavior 296.33 Active Medications Medication Code System Code Instructions Start Date End Date Status Dosage Clonazepam [facility] [id number] 2 TAKE ONE TABLET BY MOUTH EVERY NIGHT AT BEDTIME FOR SLEEP Results No Known Results Summary Purpose [employer] Submission
--- OUTSIDE RECORDS SUMMARY | 2019-09-29 06:19 | XMS REPORT ---
Author Author Lisa MCKEON Organization [employer] Address Unknown Phone Unavailable Care Team Providers Care Molecular Biology Scientist Name Role Phone YONIS MCKEON CP Unavailable Allergies No Known Allergies Problems Problem Type Condition Code Onset Dates Condition Statu s Problem Persistent disorder of initiating or maintaining sleep 307.42 Active Problem Major depressive disorder, r ecurrent episode, severe, without mention of psychotic behavior 296.33 Active Medications Medication Code System Code Instructions Start Date End Date Status Dosage Venlafaxine HCl [facility] [address]-40 37.5 MG Orally Once a day 1 tablet Results No Known Results Summary Purpose [employer] Submission
--- OUTSIDE RECORDS SUMMARY | 2019-09-29 06:19 | XMS REPORT ---
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 .42 Active 72310858 Problem Depression, major, recurrent, moderate F33.1 Active 88708950 Problem Major depressive disorder, r ecurrent episode, severe, without mention of psychotic behavior 296.33 Active 35997352 ALLERGIES No Information ENCOUNTERS Encounter Location Date Diagnosis [facility] [address] [id number] [address] [place] [id number] Mar, [place] [id number] [place] [id number] [address] [place] [address] Jan, [place] [address] [id number] [address] [place] [address] November, Major depression F32.9 ; Gen eralized anxiety disorder F41.1 and BMI 45.0-49.9, adult Z68.42 [facility] [address] [id number] [address] [place] [address] Jul, Major depression F32.9 ; Gen eralized anxiety disorder F41.1 and BMI 45.0-49.9, adult Z68.42 [facility] [address] [id number] [address] [place] [phone] Apr, Major depression F32.9 and G eneralized anxiety disorder F41.1 [facility] [address] [id number] [address] [place] [phone] Jan, Generalized anxiety disorder F41.1 and Depression, major, recurrent, moderate F33.1 [facility] [address] [id number] [address] [place] [phone] Oct, Generalized anxiety disorder F41.1 and Major depression F32.9 [facility] [address] [facility] [id number] [address] [place] [phone] Jul, Generalized anxiety disorder F41.1 and Depression, major, recurrent, moderate F33.1 [facility] [address] [id number] [address] [place] [id number] 14 Jun, 2016 [facility] [address] [id number] [address] [place] [id number] 15 Mar, 2016 [facility] [address] [facility] [id number] [address] [place] [id number] 14 Mar, 2016 Generalized anxiety disorder F41.1 and Major depression F32.9 [facility] [address] [facility] [id number] [address] [place] [id number] 15 Dec, 2015 [facility] [address] [id number] [address] [place] [id number] 15 Dec, 2015 Generalized anxiety disorder F41.1 and Major depression F32.9 [facility] [address] [facility] [id number] [address] [place] [id number] November, [facility] [address] [facility] [id number] [address] [place] [phone] 11 Oct, 2015 [facility] [address] [id number] [address] [place] [phone] 16 Sep, 2015 Unspecified mood [affective] disorder F39 ; Generalized anxiety disorder F41.1 and Major depression F32.9 [facility] [address] [id number] [address] [place] [phone] 14 Sep, 2015 [facility] [address] [facility] [id number] [address] [place] [phone] 15 Aug, 2015 [facility] [address] [facility] [id number] [address] [place] [phone] Jul, [facility] [address] [facility] [id number] [address] [place] [id number] Jul, [facility] [address] [facility] [id number] [address] [place] [phone] Jun, [facility] [address] [facility] [id number] [address] [place] [phone] Jun, Major depression F32.9 ; Gen eralized anxiety disorder F41.1 and Unspecified mood [affective] disorder F39 [facility] [address] [facility] [id number] [address] [place] [phone] Jun, [facility] [address] [id number] [address] [place] [id number] Apr, [facility] [address] [id number] [address] [place] [phone] Mar, [facility] [address] [id number] [address] [place] [phone] Mar, Anxiety 300.00 and Major dep ressive disorder, recurrent episode, severe 296.33 [facility] [address] [id number] [address] [place] [phone] Feb, [facility] [address] [facility] [id number] [address] [place] [phone] Jan, [facility] [address] [facility] [id number] [address] [place] [phone] Dec, [facility] [address] [facility] [id number] [address] [place] [phone] Dec, [facility] [address] [id number] [address] [place] [phone] Dec, Major depressive disorder, r ecurrent episode, severe, without mention of psychotic behavior 296.33 ; Mood disorder 296.90 and Anxiety disorder, unspecified 300.00 [facility] [address] [id number] [address] [place] [address], [place] [address] 14 Oct, 2014 [facility] [address] [id number] [address] [place] [address], [place] [id number] Oct, [facility] [address] [id number] [address] [place] [address], [place] [phone] Sep, [facility] [address] [id number] [address] [place] [address], [place] [address] Sep, [facility] [address] [id number] [address] [place] [address], [place] [id number] Sep, [facility] [address] [id number] [address] [place] [address], [place] [address] Sep, [facility] [address] [id number] [address] [place] [address], [place] [address] Sep, [facility] [address] [id number] [address] [place] [address], [place] [address] Sep, [facility] [address] [id number] [address] [place] [address], [place] [address] Aug, [facility] [address] [id number] [address] [place] [address], [place] [address] Aug, [facility] [address] [id number] [address] [place] [address], [place] [address] Aug, [facility] [address] [id number] [address] [place] [address], [place] [address] Jul, [facility] [address] [id number] [address] [place] [address], [place] [address] Jul, [facility] [address] [id number] [address] [place] [address], [place] [address] Jun, [facility] [address] [id number] [address] [place] [address], [place] [address] Jun, [facility] [address] [id number] [address] [place] [address], [place] [address] May, [facility] [address] [id number] [address] [place] [address], [place] [address] May, [facility] [address] [id number] [address] [place] [address], [place] [address] May, [facility] [address] [id number] [address] [place] [address], [place] [address] May, [facility] [address] [id number] [address] [place] [address], [place] [address] Apr, [facility] [address] [id number] [address] [place] [address], [place] [address] Apr, [facility] [address] [id number] [address] [place] [address], [place] [address] Apr, [facility] [address] [id number] [address] [place] [address], [place] [address] Apr, [facility] [address] [id number] [address] [place] [address], [place] [address] Apr, [facility] [address] [id number] [address] [place] [address], [place] [address] Apr, [facility] [address] [id number] [address] [place] [address], [place] [address] Jan, [facility] [address] [id number] [address] [place] [address], [place] [address] Jan, [facility] [address] [id number] [address] [place] [address], [place] [address] November, [facility] [address] [id number] [address] [place] [address], [place] [address] November, [facility] [address] [id number] [address] [place] [address], [place] [address] Oct, [facility] [address] [id number] [address] [place] [address], [place] [address] Oct, [facility] [address] [id number] [address] [place] [address], [place] [address] Oct, [facility] [address] [id number] [address] [place] [address], [place] [address] Oct, [facility] [address] [id number] [address] [place] [address], [place] [address] Oct, [facility] [address] [id number] [address] [place] [address], [place] [address] Oct, [facility] [address] [id number] [address] [place] [address], [place] [address] Sep, [facility] [address] [id number] [address] [place] [address], [place] [address] Sep, [facility] [address] [id number] [address] [place] [address], [place] [address] Jul, [facility] [address] [id number] [address] [place] [address], [place] [address] Jul, [facility] [address] [id number] [address] [place] [address], [place] [address] Jun, [facility] [address] [id number] [address] [place] [address], [place] [address] Jun, [facility] [address] [id number] [address] [place] [address], [place] [address] May, [facility] [address] [id number] [address] [place] [address], [place] [address] May, [facility] [address] [id number] [address] [place] [address], [place] [address] Mar, [facility] [address] [id number] [address] [place] [address], [place] [address] Feb, [facility] [address] [id number] [address] [place] [address], [place] [address] Jan, [facility] [address] [id number] [address] [place] [address], [place] [address] Dec, [facility] [address] [id number] [address] [place] [address], [place] [address] Dec, [facility] [address] [id number] [address] [place] [address], [place] [address] November, [facility] [address] [id number] [address] [place] [address], [place] [address] November, [facility] [address] [id number] [address] [place] [address], [place] [address] Sep, [facility] [address] [id number] [address] [place] [address], [place] [address] Jun, [facility] [address] [id number] [address] [place] [address], [place] [address] Jun, [facility] [address] [id number] [address] [place] [address], [place] [address] Jun, [facility] [address] [id number] [address] [place] [address], [place] [address] Jun, [facility] [address] [id number] [address] [place] [address], [place] [address] Apr, [facility] [address] [id number] [address] [place] [address], [place] [address] Apr, [facility] [address] [id number] [address] [place] [address], [place] [address] Apr, [facility] [address] [id number] [address] [place] [address], [place] [address] Apr, [facility] [address] [id number] [address] [place] [address], [place] [address] Mar, [facility] [address] [id number] [address] [place] [address], [place] [address] Jan, [facility] [address] [id number] [address] [place] [address], [place] [address] Jan, [facility] [address] [id number] [address] [place] [address] Dec, [facility] [address] [id number] [address] [place] [address] November, [facility] [address] [id number] [address] [place] [address] November, [facility] [address] [id number] [address] [place] [phone] November, [facility] [address] [id number] [address] [place] [address] November, [facility] [address] [id number] [address] [place] [address] Sep, [facility] [address] [id number] [address] [place] [phone] Aug, [facility] [address] [id number] [address] [place] [address] May, [facility] [address] [id number] [address] [place] [phone] May, [facility] [address] [id number] [address] [place] [phone] Feb, [facility] [address] [id number] [address] [place] [address] Jun, [facility] [address] [id number] [address] [place] [id number] Jun, [facility] [address] [id number] [address] [place] [address] Apr, [facility] [address] [id number] [address] [place] [address] Jun, [facility] [address] [id number] [address] [place] [address] May, [facility] [address] [id number] [address] [place] [address] May, IMMUNIZATIONS No Known Immunizations SOCIAL HISTORY Never Assessed REASON FOR VISIT f/uMirella ACOSTA PLAN OF CARE Activity Details Follow Up 4 Months, prn Reason: VITAL SIGNS Height 62.5 in 2017-11-20 Weight 266.9 lbs 2017-11-20 Heart Rate 93 bpm 2017-11-20 Respiratory Rate 20 2017-11-20 BMI 48.03 kg/m2 2017-11-20 Blood pressure systolic 128 mmHg 2017-11-20 Blood pressure diastolic 80 mmHg 2017-11-20 MEDICATIONS Medication Instructions Dosage Frequency Start Date End Date Duration S tatus Myrbetriq 50 MG Orally Once a day 1 tablet 24h Active Venlafaxine HCl 75 MG Orally every morning 1 tablet 30 days Active Actos 15 MG Orally Once a day 1 tablet 24h A ctive Mirtazapine 15 MG Orally at bedtime 1 tablet Mar, 30 days Active Meloxicam 7.5 MG Orally twice a day 1 tablet 12h Active Aspirin Adult Low Strength 81 MG Orally Once a day 1 tablet 24h Active cyclobenzaprine 10 mg 0.5-1 Tablet by Oral route 3 nicola es per day Jan, Active Venlafaxine HCl 37.5 MG Orally every noon 1 tablet 30 days Active Vitamin B Complex Active Simvastatin 40 MG Orally Once a day 1 tablet in the evening 24h Active Potassium Bicarb-Citric Acid 10 MEQ Orally 2 times a day 1 tablet 12h Active Vitamin D 2,000 unit 1 Capsule by Oral route 1 time per day 17 Aug, 2011 Active Fish Oil 1000 MG Orally Twice a day 2 Tablet 1 time per day 12h 14 Jul, 2013 Active Lisinopril 10 MG 1 Tablet by Oral route 1 time per day 1 Jun, Active Abilify 15 MG Orally Once a day 1 tablet 24h 30 days Active Levothyroxine Sodium 50 MCG Orally Once a day 1 tablet 24h Active Clonazepam 1 MG Orally Once a day as needed 1 tablet Active Mometasone Furoate 50 MCG/ACT Nasally Once a day 2 sprays in each nos tril 24h Active Benadryl 25 MG Orally Once a day 2 capsules 24h Active Gabapentin 600 MG Orally Three times a day 1 tablet 8h Active HydrOXYzine Pamoate 25 MG Orally twice a day as needed 1 capsule Dec, 30 days Active Metformin HCl 1000 MG Orally Twice a day 2 tablets 12h Active RESULTS No Results PROCEDURES No Known [...] knees Hospitalization History surgeries Hospitalization History [facility] for depression 200 4
--- OUTSIDE RECORDS SUMMARY | 2019-09-29 06:19 | XMS REPORT ---
Author Author Lisa MCKEON Organization [facility] Address Unknown Care Team Providers Care Platform Supervisor Name Role Phone LINDA YONIS Unavailable PROBLEMS Type Condition ICD9-CM Code [id number] Code Onset Dates Condition S tatus SNOMED Code Problem Major depressive disorder, r ecurrent episode, severe, without mention of psychotic behavior 296.33 Active 93447541 Problem Persistent disorder of initiating or maintaining sleep 307 .42 Active 43328196 Assessment Generalized anxiety disorder F41.1 14 Mar, Active 72744366 Assessment Major depression F32.9 14 Mar, 2016 Active [id number] ALLERGIES Unknown Allergies SOCIAL HISTORY No smoking Hx information available PLAN OF CARE VITAL SIGNS Height 62.5 in 2016-04-04 Weight 256 lbs 2016-04-04 Heart Rate 94 bpm 2016-04-04 Respiratory Rate 22 2016-04-04 BMI 46.07 kg/m2 2016-04-04 Blood pressure systolic 136 mmHg 2016-04-04 Blood pressure diastolic 80 mmHg 2016-04-04 MEDICATIONS Medication Instructions Dosage Frequency Start Date End Date Duration S tatus Vitamin D 2,000 unit 1 Capsule by Oral route 1 time per day Aug, Active Claritin 10 mg 1 Tablet by Oral route 1 time per day Sep, Active Myrbetriq 50 MG Orally Once a day 1 tablet 24h Active Actos 30 MG Orally Once a day 1 tablet 24h A ctive Zetia 10 MG Orally Once a day 1 tablet 24h A ctive Clonazepam 2 MG Orally Once a day TAKE ONE TABLET BY M OUTH EVERY NIGHT AT BEDTIME FOR SLEEP 24h Active Potassium Bicarb-Citric Acid 10 MEQ Orally 2 times a day 1 tablet 12h Active Vitamin B Complex Active Abilify 15 MG Orally Once a day 1 tablet 24h 30 days Active Niaspan 750 MG Orally Once a day 1 tablet at bedtime 24h Active Mometasone Furoate 50 MCG/ACT Nasally Once a day 2 sprays in each nos tril 24h Active Venlafaxine HCl 37.5 MG Orally Once a day 1 tablet 24h 30 days Active Aspirin Adult Low Strength 81 MG Orally Once a day 1 tablet 24h Active HydrOXYzine Pamoate 25 MG Orally twice a day 1 capsule as needed 12 h 05 Dec, 2014 30 days Active Meloxicam 7.5 MG Orally twice a day 1 tablet 12h Active Fish Oil 1000 MG Orally Twice a day 2 Tablet 1 time per day 12h 14 Jul, 2013 Active Benadryl 25 MG Orally every 6 hrs 1 capsule as needed 6h Active Mirtazapine 15 MG Orally Once a day 1 tablet before bedtime in the evening 24h 09 Mar, 2015 30 days Active Metformin HCl 1000 MG Orally Twice a day 1 tablet with meals 12h Active Gabapentin 600 MG Orally Three times a day 1 tablet 8h Active cyclobenzaprine 10 mg 0.5-1 Tablet by Oral route 3 nicola es per day Jan, Active Venlafaxine HCl 75 MG Orally Once a day 1 tablet 24h 30 days Active Levothyroxine Sodium 50 MCG Orally Once a day 1 tablet 24h Active Lisinopril 5 MG 1 Tablet by Oral route 1 time per day Jun, Active Simvastatin 40 MG Orally Once a day 1 tablet in the evening 24h Active RESULTS No Results PROCEDURES Procedure Date Ordered Related Diagnosis Body Site [facility] VISIT ESTABLISHED PATIENT Apr 04, 2016 Office Visit, Est Pt., Level 3 Apr 04, 2016 IMMUNIZATIONS No Known Immunizations
--- OUTSIDE RECORDS SUMMARY | 2019-09-29 06:19 | XMS REPORT ---
Author Author Lisa MCKEON Organization [employer] Address Unknown Phone Unavailable Care Team Providers Care Equipment Service Engineer Name Role Phone YONIS MCKEON CP Unavailable Allergies No Known Allergies Problems Problem Type Condition Code Onset Dates Condition Statu s Problem Persistent disorder of initiating or maintaining sleep 307.42 Active Problem Major depressive disorder, r ecurrent episode, severe, without mention of psychotic behavior 296.33 Active Medications No Known Medications Results No Known Results Summary Purpose [employer] Submission
--- OUTSIDE RECORDS SUMMARY | 2019-09-29 06:19 | XMS REPORT ---
Author Author Lisa MCKEON Organization [facility] Address Unknown Care Team Providers Care Powerhouse Tender Name Role Phone YONIS MCKEON Unavailable PROBLEMS Type Condition ICD9-CM Code [id number] Code Onset Dates Condition S tatus SNOMED Code Problem Major depressive disorder, r ecurrent episode, severe, without mention of psychotic behavior 296.33 Active 89385654 Problem Persistent disorder of initiating or maintaining sleep 307 .42 Active [id number] ALLERGIES Unknown Allergies SOCIAL HISTORY No smoking Hx information available PLAN OF CARE VITAL SIGNS MEDICATIONS Medication Instructions Dosage Frequency Start Date End Date Duration S tatus Clonazepam 2 MG Orally Once a day TAKE ONE TABLET BY M OUTH EVERY NIGHT AT BEDTIME FOR SLEEP 24h Active RESULTS No Results PROCEDURES No Known procedures IMMUNIZATIONS No Known Immunizations
--- OUTSIDE RECORDS SUMMARY | 2019-09-29 06:19 | XMS REPORT ---
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 .42 Active 62915348 Problem Depression, major, recurrent, moderate F33.1 Active 48230614 Problem Major depressive disorder, r ecurrent episode, severe, without mention of psychotic behavior 296.33 Active [id number] ALLERGIES No Information ENCOUNTERS Encounter Location Date Diagnosis [place] [id number] [place] [id number] [address] [place] [phone] Jun, [place] [address] [place] [id number] [address] [place] [address] Mar, Major depression F32.9 [place] [address] [place] [id number] [address] [place] [address] Mar, Major depression F32.9 ; Gen eralized anxiety disorder F41.1 and BMI 40.0-44.9, adult Z68.41 [facility] [address] [facility] [id number] [address] [place] [address] Jan, [place] [address] [place] [id number] [address] [place] [address] November, Major depression F32.9 ; Gen eralized anxiety disorder F41.1 and BMI 45.0-49.9, adult Z68.42 [place] [address] [facility] [id number] [address] [place] [address] Jul, Major depression F32.9 ; Gen eralized anxiety disorder F41.1 and BMI 45.0-49.9, adult Z68.42 [facility] [address] [id number] [address] [place] [address] Apr, Major depression F32.9 and G eneralized anxiety disorder F41.1 [facility] [address] [id number] [address] [place] [address] Jan, Generalized anxiety disorder F41.1 and Depression, major, recurrent, moderate F33.1 [facility] [address] [id number] [address] [place] [address] Oct, Generalized anxiety disorder F41.1 and Major depression F32.9 [facility] [address] [id number] [address] [place] [address] Jul, Generalized anxiety disorder F41.1 and Depression, major, recurrent, moderate F33.1 [facility] [address] [id number] [address] [place] [address] Jun, [facility] [address] [id number] [address] [place] [phone] 15 Mar, 2016 [facility] [address] [id number] [address] [place] [address] 14 Mar, 2016 Generalized anxiety disorder F41.1 and Major depression F32.9 [facility] [address] [id number] [address] [place] [address] Dec, [facility] [address] [id number] [address] [place] [address] 15 Dec, 2015 Generalized anxiety disorder F41.1 and Major depression F32.9 [facility] [address] [id number] [address] [place] [address] November, [facility] [address] [id number] [address] [place] [address] Oct, [facility] [address] [id number] [address] [place] [address] 16 Sep, 2015 Unspecified mood [affective] disorder F39 ; Generalized anxiety disorder F41.1 and Major depression F32.9 [facility] [address] [id number] [address] [place] [address] 14 Sep, 2015 [facility] [address] [id number] [address] [place] [address] Aug, [facility] [address] [id number] [address] [place] [phone] Jul, [facility] [address] [id number] [address] [place] [address] Jul, [facility] [address] [id number] [address] [place] [address] Jun, [facility] [address] [facility] [id number] [address] [place] [phone] Jun, Major depression F32.9 ; Gen eralized anxiety disorder F41.1 and Unspecified mood [affective] disorder F39 [facility] [address] [id number] [address] [place] [address] Jun, [facility] [address] [facility] [id number] [address] [place] [address] Apr, [facility] [address] [facility] [id number] [address] [place] [address] Mar, [facility] [address] [id number] [address] [place] [address] Mar, Anxiety 300.00 and Major dep ressive disorder, recurrent episode, severe 296.33 [facility] [address] [id number] [address] [place] [address] Feb, [facility] [address] [id number] [address] [place] [address] Jan, [facility] [address] [facility] [id number] [address] [place] [address] Dec, [facility] [address] [id number] [address] [place] [address] Dec, [facility] [address] [id number] [address] [place] [address] Dec, Major depressive disorder, r ecurrent episode, severe, without mention of psychotic behavior 296.33 ; Mood disorder 296.90 and Anxiety disorder, unspecified 300.00 [facility] [address] [id number] [address] [place] [address] Oct, [facility] [address] [id number] [address] [place] [address] Oct, [facility] [address] [id number] [address] [place] [address] Sep, [facility] [address] [id number] [address] [place] [address] Sep, [facility] [address] [id number] [address] [place] [address] Sep, [facility] [address] [id number] [address] [place] [id number] Sep, [facility] [address] [id number] [address] [place] [address] Sep, [facility] [address] [id number] [address] [place] [id number] Sep, [facility] [address] [id number] [address] [place] [address] Aug, [facility] [address] [id number] [address] [place] [address] Aug, [facility] [address] [id number] [address] [place] [address] Aug, [facility] [address] [id number] [address] [place] [address] Jul, [facility] [address] [id number] [address] [place] [address] Jul, [facility] [address] [id number] [address] [place] [address], [place] [address] Jun, [facility] [address] [id number] [address] [place] [address], [place] [address] Jun, [facility] [address] [id number] [address] [place] [address], [place] [address] May, [facility] [address] [id number] [address] [place] [address], [place] [address] May, [facility] [address] [id number] [address] [place] [address], [place] [address] May, [facility] [address] [id number] [address] [place] [address], [place] [address] May, [facility] [address] [id number] [address] [place] [address], [place] [address] Apr, [facility] [address] [id number] [address] [place] [address], [place] [address] Apr, [facility] [address] [id number] [address] [place] [address], [place] [address] Apr, [facility] [address] [id number] [address] [place] [address], [place] [address] Apr, [facility] [address] [id number] [address] [place] [address], [place] [address] Apr, [facility] [address] [id number] [address] [place] [address] Apr, [facility] [address] [id number] [address] [place] [address], [place] [address] Jan, [facility] [address] [id number] [address] [place] [phone] Jan, [facility] [address] [id number] [address] [place] [address], [place] [address] November, [facility] [address] [id number] [address] [place] [address], [place] [address] November, [facility] [address] [id number] [address] [place] [address], [place] [address] Oct, [facility] [address] [id number] [address] [place] [address], [place] [address] Oct, [facility] [address] [id number] [address] [place] [address], [place] [address] Oct, [facility] [address] [id number] [address] [place] [address], [place] [address] Oct, [facility] [address] [id number] [address] [place] [address], [place] [address] Oct, [facility] [address] [id number] [address] [place] [address], [place] [address] Oct, [facility] [address] [id number] [address] [place] [address], [place] [address] Sep, [facility] [address] [id number] [address] [place] [address], [place] [address] Sep, [facility] [address] [id number] [address] [place] [address], [place] [address] Jul, [facility] [address] [id number] [address] [place] [address], [place] [address] Jul, [facility] [address] [id number] [address] [place] [address], [place] [address] Jun, [facility] [address] [id number] [address] [place] [address], [place] [address] Jun, [facility] [address] [id number] [address] [place] [address], [place] [address] May, [facility] [address] [id number] [address] [place] [address], [place] [address] May, [facility] [address] [id number] [address] [place] [address] [address] Mar, [facility] [address] [id number] [address] [place] [address], [place] [address] Feb, [facility] [address] [id number] [address] [place] [address], [place] [address] Jan, [facility] [address] [id number] [address] [place] [address], [place] [address] Dec, [facility] [address] [id number] [address] [place] [address], [place] [address] Dec, [facility] [address] [id number] [address] [place] [address], [place] [address] November, [facility] [address] [id number] [address] [place] [address], [place] [address] November, [facility] [address] [id number] [address] [place] [address], [place] [address] Sep, [facility] [address] [id number] [address] [place] [address], [place] [address] Jun, [facility] [address] [id number] [address] [place] [address], [place] [address] Jun, [facility] [address] [id number] [address] [place] [address], [place] [address] Jun, [facility] [address] [id number] [address] [place] [address], [place] [address] Jun, [facility] [address] [id number] [address] [place] [address], [place] [address] Apr, [facility] [address] [id number] [address] [place] [address], [place] [address] Apr, [facility] [address] [id number] [address] [place] [address], [place] [address] Apr, [facility] [address] [id number] [address] [place] [address], [place] [address] Apr, [facility] [address] [id number] [address] [place] [address], [place] [address] Mar, [facility] [address] [id number] [address] [place] [address], [place] [address] Jan, [facility] [address] [id number] [address] [place] [address], [place] [address] Jan, [facility] [address] [id number] [address] [place] [address], [place] [address] Dec, [facility] [address] [id number] [address] [place] [address], [place] [address] November, [facility] [address] [id number] [address] [place] [address], [place] [address] November, [facility] [address] [id number] [address] [place] [address], [place] [address] November, [facility] [address] [id number] [address] [place] [address], [place] [address] November, [facility] [address] [id number] [address] [place] [address], [place] [address] Sep, [facility] [address] [id number] [address] [place] [address], [place] [address] Aug, [facility] [address] [id number] [address] [place] [address], [place] [address] May, [facility] [address] [id number] [address] [place] [address], [place] [address] May, [facility] [address] [id number] [address] [place] [address], [place] [address] Feb, [facility] [address] [id number] [address] [place] [address], [place] [address] Jun, [facility] [address] [id number] [address] [place] [address], [place] [address] Jun, [facility] [address] [id number] [address] [place] [address], [place] [address] Apr, [facility] [address] [facility] [id number] [address] [place] [address] Jun, [facility] [address] [facility] [id number] [address] [place] [address] May, [facility] [address] [facility] [id number] [address] [place] [address] May, IMMUNIZATIONS No Known Immunizations SOCIAL HISTORY Never Assessed REASON FOR VISIT klonobrian refill PLAN OF CARE VITAL SIGNS MEDICATIONS Medication Instructions Dosage Frequency Start Date End Date Duration S magan Clonazepam 1 MG Orally Once a day as needed 1 tablet 30 days Active RESULTS No Results PROCEDURES No Known [...] knees Hospitalization History surgeries Hospitalization History [facility] unit for depression 200 4
--- OUTSIDE RECORDS SUMMARY | 2019-09-29 06:19 | XMS REPORT ---
Author Author Lisa PAREDES Organization [facility] Address [address] [place] [address] Care Team Providers Care [employer] Assistant Name Role Phone JERRY PAREDES Unavailable PROBLEMS Type Condition ICD9-CM Code [id number] Code Onset Dates Condition S tatus SNOMED Code Problem Major depression F32.9 Active 370 067808 Problem Generalized anxiety disorder F41.1 A ctive 81158241 Problem Persistent disorder of initiating or maintaining sleep 307 .42 Active 97102090 Problem Depression, major, recurrent, moderate F33.1 Active 78685468 Problem Major depressive disorder, r ecurrent episode, severe, without mention of psychotic behavior 296.33 Active [id number] ALLERGIES No Information ENCOUNTERS Encounter Location Date Diagnosis [place] [id number] [facility] [id number] [address] [place] [address] Jun, [place] [address] [address] [place] [id number] [address] [place] [phone] Mar, Major depression F32.9 ; Gen eralized anxiety disorder F41.1 and BMI 40.0-44.9, adult Z68.41 [place] [address] [address] [facility] [id number] [address] [place] [address] Jan, [place] [address] [place] [id number] [address] [place] [address] November, Major depression F32.9 ; Gen eralized anxiety disorder F41.1 and BMI 45.0-49.9, adult Z68.42 [place] [address] [facility] [id number] [address] [place] [address] Jul, Major depression F32.9 ; Gen eralized anxiety disorder F41.1 and BMI 45.0-49.9, adult Z68.42 [place] [address] [address] [place] [id number] [address] [place] [address] Apr, Major depression F32.9 and G eneralized anxiety disorder F41.1 [facility] [address] [id number] [address] [place] [address] Jan, Generalized anxiety disorder F41.1 and Depression, major, recurrent, moderate F33.1 [facility] [address] [id number] [address] [place] [address] Oct, Generalized anxiety disorder F41.1 and Major depression F32.9 [facility] [address] [id number] [address] [place] [address] Jul, Generalized anxiety disorder F41.1 and Depression, major, recurrent, moderate F33.1 [facility] [address] [id number] [address] [place] [address] Jun, [facility] [address] [id number] [address] [place] [address] 15 Mar, 2016 [facility] [address] [id number] [address] [place] [phone] 14 Mar, 2016 Generalized anxiety disorder F41.1 and Major depression F32.9 [facility] [address] [facility] [id number] [address] [place] [address] 15 Dec, 2015 [facility] [address] [id number] [address] [place] [phone] 15 Dec, 2015 Generalized anxiety disorder F41.1 and Major depression F32.9 [facility] [address] [id number] [address] [place] [address] November, [facility] [address] [facility] [id number] [address] [place] [address] Oct, [facility] [address] [facility] [id number] [address] [place] [phone] 16 Sep, 2015 Unspecified mood [affective] disorder F39 ; Generalized anxiety disorder F41.1 and Major depression F32.9 [facility] [address] [facility] [id number] [address] [place] [address] Sep, [facility] [address] [facility] [id number] [address] [place] [phone] 15 Aug, 2015 [facility] [address] [facility] [id number] [address] [place] [phone] Jul, [facility] [address] [facility] [id number] [address] [place] [id number] Jul, [facility] [address] [facility] [id number] [address] [place] [phone] Jun, [facility] [address] [facility] [id number] [address] [place] [address] Jun, Major depression F32.9 ; Gen eralized anxiety disorder F41.1 and Unspecified mood [affective] disorder F39 [facility] [address] [facility] [id number] [address] [place] [address] Jun, [facility] [address] [facility] [id number] [address] [place] [phone] Apr, [facility] [address] [place] [id number] [address] [place] [phone] Mar, [facility] [address] [place] [id number] [address] [place] [address] Mar, Anxiety 300.00 and Major dep ressive disorder, recurrent episode, severe 296.33 [facility] [address] [facility] [id number] [address] [place] [address] Feb, [facility] [address] [facility] [id number] [address] [place] [phone] Jan, [facility] [address] [facility] [id number] [address] [place] [address] Dec, [facility] [address] [facility] [id number] [address] [place] [address] Dec, [facility] [address] [facility] [id number] [address] [place] [address] Dec, Major depressive disorder, r ecurrent episode, severe, without mention of psychotic behavior 296.33 ; Mood disorder 296.90 and Anxiety disorder, unspecified 300.00 [facility] [address] [id number] [address] [place] [address], [place] [address] 14 Oct, 2014 [facility] [address] [id number] [address] [place] [address] Oct, [facility] [address] [id number] [address] [place] [phone] Sep, [facility] [address] [id number] [address] [place] [phone] Sep, [facility] [address] [id number] [address] [place] [phone] Sep, [facility] [address] [id number] [address] [place] [phone] Sep, [facility] [address] [id number] [address] [place] [address] Sep, [facility] [address] [id number] [address] [place] [address] Sep, [facility] [address] [id number] [address] [place] [phone] Aug, [facility] [address] [id number] [address] [place] [phone] Aug, [facility] [address] [id number] [address] [place] [phone] Aug, [facility] [address] [id number] [address] [place] [phone] Jul, [facility] [address] [id number] [address] [place] [phone] Jul, [facility] [address] [id number] [address] [place] [phone] Jun, [facility] [address] [id number] [address] [place] [address], [place] [address] Jun, [facility] [address] [id number] [address] [place] [address], [place] [address] May, [facility] [address] [id number] [address] [place] [address], [place] [address] May, [facility] [address] [id number] [address] [place] [address], [place] [address] May, [facility] [address] [id number] [address] [place] [address], [place] [address] May, [facility] [address] [id number] [address] [place] [address], [place] [address] Apr, [facility] [address] [id number] [address] [place] [address], [place] [address] Apr, [facility] [address] [id number] [address] [place] [address], [place] [address] Apr, [facility] [address] [id number] [address] [place] [address], [place] [address] Apr, [facility] [address] [id number] [address] [place] [address], [place] [address] Apr, [facility] [address] [id number] [address] [place] [address], [place] [address] Apr, [facility] [address] [id number] [address] [place] [phone] Jan, [facility] [address] [id number] [address] [place] [address], [place] [address] Jan, [facility] [address] [id number] [address] [place] [address], [place] [address] November, [facility] [address] [id number] [address] [place] [address], [place] [address] November, [facility] [address] [id number] [address] [place] [address], [place] [address] Oct, [facility] [address] [id number] [address] [place] [address], [place] [address] Oct, [facility] [address] [id number] [address] [place] [address], [place] [address] Oct, [facility] [address] [id number] [address] [place] [address], [place] [address] Oct, [facility] [address] [id number] [address] [place] [address], [place] [address] Oct, [facility] [address] [id number] [address] [place] [address], [place] [address] Oct, [facility] [address] [id number] [address] [place] [address], [place] [address] Sep, [facility] [address] [id number] [address] [place] [address], [place] [address] Sep, [facility] [address] [id number] [address] [place] [address], [place] [address] Jul, [facility] [address] [id number] [address] [place] [address], [place] [address] Jul, [facility] [address] [id number] [address] [place] [address], [place] [address] Jun, [facility] [address] [id number] [address] [place] [address], [place] [address] Jun, [facility] [address] [id number] [address] [place] [address], [place] [address] May, [facility] [address] [id number] [address] [place] [address], [place] [address] May, [facility] [address] [id number] [address] [place] [address], [place] [address] Mar, [facility] [address] [id number] [address] [place] [address], [place] [address] Feb, [facility] [address] [id number] [address] [place] [address], [place] [address] Jan, [facility] [address] [id number] [address] [place] [address], [place] [address] Dec, [facility] [address] [id number] [address] [place] [address], [place] [address] Dec, [facility] [address] [id number] [address] [place] [address], [place] [address] November, [facility] [address] [id number] [address] [place] [address], [place] [address] November, [facility] [address] [id number] [address] [place] [address], [place] [address] Sep, [facility] [address] [id number] [address] [place] [address], [place] [address] Jun, [facility] [address] [id number] [address] [place] [address], [place] [address] Jun, [facility] [address] [id number] [address] [place] [address], [place] [address] Jun, [facility] [address] [id number] [address] [place] [address], [place] [address] Jun, [facility] [address] [id number] [address] [place] [address], [place] [address] Apr, [facility] [address] [id number] [address] [place] [address], [place] [address] Apr, [facility] [address] [id number] [address] [place] [address], [place] [address] Apr, [facility] [address] [id number] [address] [place] [address], [place] [address] Apr, [facility] [address] [id number] [address] [place] [address], [place] [address] 18 Mar, 2012 [facility] [address] [id number] [address] [place] [address], [place] [address] Jan, [facility] [address] [id number] [address] [place] [address], [place] [address] Jan, [facility] [address] [id number] [address] [place] [address], [place] [address] Dec, [facility] [address] [id number] [address] [place] [address], [place] [address] November, [facility] [address] [id number] [address] [place] [address], [place] [address] November, [facility] [address] [id number] [address] [place] [address], [place] [address] November, [facility] [address] [id number] [address] [place] [address], [place] [address] November, [facility] [address] [id number] [address] [place] [address], [place] [address] Sep, [facility] [address] [id number] [address] [place] [address], [place] [address] Aug, [facility] [address] [id number] [address] [place] [address], [place] [address] May, [facility] [address] [id number] [address] [place] [address], [place] [address] May, [facility] [address] [id number] [address] [place] [address], [place] [address] Feb, [facility] [address] [id number] [address] [place] [address], [place] [address] Jun, [facility] [address] [id number] [address] [place] [address], [place] [address] Jun, [facility] [address] [id number] [address] [place] [address], [place] [address] Apr, [facility] [address] [id number] [address] [place] [address], [place] [address] Jun, [facility] [address] [id number] [address] [place] [address] May, [facility] [address] [facility] [id number] [address] [place] [address] May, IMMUNIZATIONS No Known Immunizations SOCIAL HISTORY Never Assessed REASON FOR VISIT med refill PLAN OF CARE VITAL SIGNS MEDICATIONS Medication Instructions Dosage Frequency Start Date End Date Duration S tatus Mirtazapine 15 mg Orally at bedtime 1 tablet Mar, 90 days Active Abilify 15 mg Orally Once a day 1 tablet 24h 90 days Active RESULTS No Results PROCEDURES No [...] arthroscopic knees Hospitalization History surgeries Hospitalization History [facility] for [facility] 200 4
--- OUTSIDE RECORDS SUMMARY | 2019-09-29 06:19 | XMS REPORT ---
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 .42 Active 38645313 Problem Depression, major, recurrent, moderate F33.1 Active 09092428 Problem Major depressive disorder, r ecurrent episode, severe, without mention of psychotic behavior 296.33 Active [id number] ALLERGIES No Information ENCOUNTERS Encounter Location Date Diagnosis [place] [address] [place] [id number] [address] [place] [address] Jun, [place] [address] [place] [id number] [address] [place] [address] Mar, Major depression F32.9 [place] [address] [place] [id number] [address] [place] [address] Mar, Major depression F32.9 ; Gen eralized anxiety disorder F41.1 and BMI 40.0-44.9, adult Z68.41 [facility] [address] [facility] [id number] [address] [place] [address] Jan, [place] [address] [place] [id number] [address] [place] [address] November, Major depression F32.9 ; Gen eralized anxiety disorder F41.1 and BMI 45.0-49.9, adult Z68.42 [place] [address] [facility] [id number] [address] [place] [address] Jul, Major depression F32.9 ; Gen eralized anxiety disorder F41.1 and BMI 45.0-49.9, adult Z68.42 [facility] [address] [id number] [address] [place] [address] Apr, Major depression F32.9 and G eneralized anxiety disorder F41.1 [facility] [address] [id number] [address] [place] [address] Jan, Generalized anxiety disorder F41.1 and Depression, major, recurrent, moderate F33.1 [facility] [address] [id number] [address] [place] [address] Oct, Generalized anxiety disorder F41.1 and Major depression F32.9 [facility] [address] [id number] [address] [place] [address] Jul, Generalized anxiety disorder F41.1 and Depression, major, recurrent, moderate F33.1 [facility] [address] [id number] [address] [place] [address] Jun, [facility] [address] [id number] [address] [place] [address] 15 Mar, 2016 [facility] [address] [id number] [address] [place] [address] 14 Mar, 2016 Generalized anxiety disorder F41.1 and Major depression F32.9 [facility] [address] [id number] [address] [place] [address] Dec, [facility] [address] [id number] [address] [place] [address] 15 Dec, 2015 Generalized anxiety disorder F41.1 and Major depression F32.9 [facility] [address] [id number] [address] [place] [address] November, [facility] [address] [id number] [address] [place] [address] Oct, [facility] [address] [id number] [address] [place] [address] 16 Sep, 2015 Unspecified mood [affective] disorder F39 ; Generalized anxiety disorder F41.1 and Major depression F32.9 [facility] [address] [id number] [address] [place] [address] 14 Sep, 2015 [facility] [address] [id number] [address] [place] [address] Aug, [facility] [address] [facility] [id number] [address] [place] [address] Jul, [facility] [address] [id number] [address] [place] [address] Jul, [facility] [address] [facility] [id number] [address] [place] [address] Jun, [facility] [address] [facility] [id number] [address] [place] [address] Jun, Major depression F32.9 ; Gen eralized anxiety disorder F41.1 and Unspecified mood [affective] disorder F39 [facility] [address] [facility] [id number] [address] [place] [address] Jun, [facility] [address] [facility] [id number] [address] [place] [address] Apr, [facility] [address] [facility] [id number] [address] [place] [address] Mar, [facility] [address] [facility] [id number] [address] [place] [address] Mar, Anxiety 300.00 and Major dep ressive disorder, recurrent episode, severe 296.33 [facility] [address] [id number] [address] [place] [address] Feb, [facility] [address] [facility] [id number] [address] [place] [address] Jan, [facility] [address] [facility] [id number] [address] [place] [address] Dec, [facility] [address] [id number] [address] [place] [address] Dec, [facility] [address] [id number] [address] [place] [address] Dec, Major depressive disorder, r ecurrent episode, severe, without mention of psychotic behavior 296.33 ; Mood disorder 296.90 and Anxiety disorder, unspecified 300.00 [facility] [address] [id number] [address] [place] [address] Oct, [facility] [address] [id number] [address] [place] [address] Oct, [facility] [address] [id number] [address] [place] [address] Sep, [facility] [address] [id number] [address] [place] [address] Sep, [facility] [address] [id number] [address] [place] [address] Sep, [facility] [address] [id number] [address] [place] [address] Sep, [facility] [address] [id number] [address] [place] [address] Sep, [facility] [address] [id number] [address] [place] [address] Sep, [facility] [address] [id number] [address] [place] [address] Aug, [facility] [address] [id number] [address] [place] [address] Aug, [facility] [address] [id number] [address] [place] [phone] Aug, [facility] [address] [id number] [address] [place] [address] Jul, [facility] [address] [id number] [address] [place] [address] Jul, [facility] [address] [id number] [address] [place] [address], [place] [address] Jun, [facility] [address] [id number] [address] [place] [address], [place] [address] Jun, [facility] [address] [id number] [address] [place] [address], [place] [address] May, [facility] [address] [id number] [address] [place] [address], [place] [address] May, [facility] [address] [id number] [address] [place] [address], [place] [address] May, [facility] [address] [id number] [address] [place] [address], [place] [address] May, [facility] [address] [id number] [address] [place] [address], [place] [address] Apr, [facility] [address] [id number] [address] [place] [address], [place] [address] Apr, [facility] [address] [id number] [address] [place] [address], [place] [address] Apr, [facility] [address] [id number] [address] [place] [address], [place] [address] Apr, [facility] [address] [id number] [address] [place] [address], [place] [address] Apr, [facility] [address] [id number] [address] [place] [address] Apr, [facility] [address] [id number] [address] [place] [address], [place] [address] Jan, [facility] [address] [id number] [address] [place] [address] Jan, [facility] [address] [id number] [address] [place] [address], [place] [address] November, [facility] [address] [id number] [address] [place] [address], [place] [address] November, [facility] [address] [id number] [address] [place] [address], [place] [address] Oct, [facility] [address] [id number] [address] [place] [address], [place] [address] Oct, [facility] [address] [id number] [address] [place] [address], [place] [address] Oct, [facility] [address] [id number] [address] [place] [address], [place] [address] Oct, [facility] [address] [id number] [address] [place] [address], [place] [address] Oct, [facility] [address] [id number] [address] [place] [address], [place] [address] Oct, [facility] [address] [id number] [address] [place] [address], [place] [address] Sep, [facility] [address] [id number] [address] [place] [address], [place] [address] Sep, [facility] [address] [id number] [address] [place] [address], [place] [address] Jul, [facility] [address] [id number] [address] [place] [address], [place] [address] Jul, [facility] [address] [id number] [address] [place] [address], [place] [address] Jun, [facility] [address] [id number] [address] [place] [address], [place] [address] Jun, [facility] [address] [id number] [address] [place] [address], [place] [address] May, [facility] [address] [id number] [address] [place] [address], [place] [address] May, [facility] [address] [id number] [address] [place] [address] [address] Mar, [facility] [address] [id number] [address] [place] [address], [place] [address] Feb, [facility] [address] [id number] [address] [place] [address], [place] [address] Jan, [facility] [address] [id number] [address] [place] [address], [place] [address] Dec, [facility] [address] [id number] [address] [place] [address], [place] [address] Dec, [facility] [address] [id number] [address] [place] [address], [place] [address] November, [facility] [address] [id number] [address] [place] [address], [place] [address] November, [facility] [address] [id number] [address] [place] [address], [place] [address] Sep, [facility] [address] [id number] [address] [place] [address], [place] [address] Jun, [facility] [address] [id number] [address] [place] [address], [place] [address] Jun, [facility] [address] [id number] [address] [place] [address], [place] [address] Jun, [facility] [address] [id number] [address] [place] [address], [place] [address] Jun, [facility] [address] [id number] [address] [place] [address], [place] [address] Apr, [facility] [address] [id number] [address] [place] [address], [place] [address] Apr, [facility] [address] [id number] [address] [place] [address], [place] [address] Apr, [facility] [address] [id number] [address] [place] [address], [place] [address] Apr, [facility] [address] [id number] [address] [place] [address], [place] [address] Mar, [facility] [address] [id number] [address] [place] [address], [place] [address] Jan, [facility] [address] [id number] [address] [place] [address], [place] [address] Jan, [facility] [address] [id number] [address] [place] [address], [place] [address] Dec, [facility] [address] [id number] [address] [place] [address], [place] [address] November, [facility] [address] [id number] [address] [place] [address], [place] [address] November, [facility] [address] [id number] [address] [place] [address], [place] [address] November, [facility] [address] [id number] [address] [place] [address], [place] [address] November, [facility] [address] [id number] [address] [place] [address], [place] [address] Sep, [facility] [address] [id number] [address] [place] [address], [place] [address] Aug, [facility] [address] [id number] [address] [place] [address], [place] [address] May, [facility] [address] [id number] [address] [place] [address], [place] [address] May, [facility] [address] [id number] [address] [place] [address], [place] [address] Feb, [facility] [address] [id number] [address] [place] [address], [place] [address] Jun, [facility] [address] [id number] [address] [place] [address], [place] [address] Jun, [facility] [address] [id number] [address] [place] [address], [place] [address] Apr, [facility] [address] [facility] [id number] [address] [place] [address] Jun, [facility] [address] [facility] [id number] [address] [place] [address] May, [facility] [address] [facility] [id number] [address] [place] [address] May, IMMUNIZATIONS No Known Immunizations SOCIAL HISTORY Never Assessed REASON FOR VISIT f/espinoza Bobby RN PLAN OF CARE Activity Details Follow Up 4 Months Reason: VITAL SIGNS Height 62.5 in 2018-03-27 Weight 229.2 lbs 2018-03-27 Respiratory Rate 20 2018-03-27 BMI 41.25 kg/m2 2018-03-27 MEDICATIONS Medication Instructions Dosage Frequency Start Date End Date Duration S tatus Vitamin D 2,000 unit 1 Capsule by Oral route 1 time per day Aug, Active Aspirin Adult Low Strength 81 MG Orally Once a day 1 tablet 24h Active HydrOXYzine Pamoate 25 MG Orally twice a day as needed 1 capsule Dec, 30 days Active Simvastatin 40 MG Orally Once a day 1 tablet in the evening 24h Active Mometasone Furoate 50 MCG/ACT Nasally Once a day 2 sprays in each nos tril 24h Active Levothyroxine Sodium 50 MCG Orally Once a day 1 tablet 24h Active Potassium Bicarb-Citric Acid 10 MEQ Orally 2 times a day 1 tablet 12h Active cyclobenzaprine 10 mg 0.5-1 Tablet by Oral route 3 nicola es per day Jan, Active Victoza 18 MG/3ML Subcutaneous Once a day 0.12 24h Active Mirtazapine 15 MG Orally at bedtime 1 tablet Mar, 30 days Active Abilify 15 mg Orally Once a day 1 tablet 24h 30 days Active Vitamin B Complex Active Gabapentin 600 MG Orally Three times a day 1 tablet 8h Active Venlafaxine HCl 37.5 MG Orally every noon 1 tablet 30 days Active Fish Oil 1000 MG Orally Twice a day 2 Tablet 1 time per day 12h Jul, Active Clonazepam 1 MG Orally Once a day as needed 1 tablet Active Benadryl 25 MG Orally Once a day 2 capsules 24h Active Lisinopril 10 MG 1 Tablet by Oral route 1 time per day 1 Jun, Active Meloxicam 7.5 MG Orally twice a day 1 tablet 12h Active Myrbetriq 50 MG Orally Once a day 1 tablet 24h Active Metformin HCl 500 MG Orally Twice a day 1 tablet 12h Active Venlafaxine HCl 75 MG Orally every morning 1 tablet 30 days Active RESULTS No [...] arthroscopic knees Hospitalization History surgeries Hospitalization History [facility] unit for depression 200 4
--- OUTSIDE RECORDS SUMMARY | 2019-09-29 06:20 | XMS REPORT ---
Author Author Lisa MCKEON [facility] eClinicalWorks Address Unknown Phone Unavailable Care Team Providers Care Oral And Maxillofacial Surgery Name Role Phone YONIS MCKEON CP Unavailable Allergies, Adverse Reactions, Alerts Substance Reaction Event Type Cipro anaphylaxis Drug Allergy raspberry hives Non Drug Allergy Problems Problem Type Condition Code Onset Dates Condition Statu s Problem Persistent disorder of initiating or maintaining sleep 307.42 Active Assessment Major depression F32.9 Active Problem Major depressive disorder, r ecurrent episode, severe, without mention of psychotic behavior 296.33 Active Assessment Generalized anxiety disorder F41.1 Active Assessment Unspecified mood [affective] disorder F39 Active Medications Medication Code System Code Instructions Start Date End Date Status Dosage cyclobenzaprine [facility] [address]-85 10 mg February 02, 2014 0.5-1 Tablet by Oral route 3 times per day Lisinopril [facility] [address]-28 5 mg Jul 07, 2012 1 Tablet by Oral route 1 time per day Mometasone Furoate [facility] [address]-49 50 MCG/ACT Nasally Once a day 2 sprays in each nostril Clonazepam [facility] 80102228055 2 TAKE ONE TABLET BY MOUTH EVERY NIGHT AT BEDTIME FOR SLEEP Zetia [facility] [address]-71 10 MG Orally Once a day 1 tablet Venlafaxine HCl [facility] [address]-04 37.5 MG Orally Once a day 1 tablet Niaspan [facility] [address]-24 750 MG Orally Once a day 1 tablet at bedtime Fish Oil [facility] [address]-63 1000 MG Orally Twice a day Aug 04, 2013 2 Tablet 1 time per day Simvastatin [facility] [address]-21 40 MG Orally Once a day 1 tablet in the evening Venlafaxine HCl [facility] [address]-44 75 MG Orally Once a day 1 tablet HydrOXYzine Pamoate [facility] [address]-10 25 MG Orally twice a day J 2014 1 capsule as needed Gabapentin [facility] [address]-87 600 MG Orally Three times a day 1 tablet Vitamin B Complex [facility] 77307-[address] Orally n ot defined Claritin [facility] [address]-40 10 mg September 24, 2014 1 Tablet by Oral route 1 time per day Actos [facility] [address]-73 30 MG Orally Once a day 1 tablet Myrbetriq [facility] [address]-38 50 MG Orally Once a day 1 tablet Mirtazapine [facility] [address]-38 15 MG Orally Once a day Mar 30, 2015 1 tablet before bedtime in the evening Vitamin D [facility] [address]-28 2,000 unit Sep 07, 2011 1 Capsule by Oral route 1 time per day Benadryl [facility] [address]-02 25 MG Orally every 6 hrs 1 capsule as needed Potassium Bicarb-Citric Acid [facility] [address]-27 10 MEQ Orally 2 t imes a day 1 tablet Metformin HCl [facility] [address]-60 1000 MG Orally Twice a day 1 tablet with meals Aspirin Adult Low Strength [facility] [address]-88 81 MG Orally Once a day 1 tablet Levothyroxine Sodium [facility] [address]-66 50 MCG Orally Once a day 1 tablet Abilify [facility] [address]-82 15 MG Orally Once a day Jul 08, 2015 1 tablet Meloxicam [facility] [address]-69 7.5 MG Orally twice a day 1 tablet Procedures Procedure Coding System Code Date Office Visit, Est Pt., Level 3 CPT-4 22808 Jul 08, 2015 [facility] VISIT ESTABLISHED PATIENT CPT-4 G0467 D 2014 Vital Signs Date/Time: Jul 08, 2015 Cardiac Monitoring Heart Rate 96 bpm Weight 267.0 lbs Height 62.5 in BMI 48.05 Index Blood Pressure Diastolic 62 mmHg Blood Pressure Systolic 100 mmHg Results No Known Results Summary Purpose eClinicalWorks Submission
--- OUTSIDE RECORDS SUMMARY | 2019-09-29 06:20 | XMS REPORT ---
Author Author Lisa MCKEON Organization [facility] Address Unknown Care Team Providers Care Music Publicist Name Role Phone LINDAYONIS Unavailable PROBLEMS Type Condition ICD9-CM Code [id number] Code Onset Dates Condition S tatus SNOMED Code Problem Major depression F32.9 Active 370 925658 Problem Generalized anxiety disorder F41.1 A ctive 91621543 Problem Persistent disorder of initiating or maintaining sleep 307 .42 Active 36585369 Problem Depression, major, recurrent, moderate F33.1 Active 56036528 Problem Major depressive disorder, r ecurrent episode, severe, without mention of psychotic behavior 296.33 Active 32585100 ALLERGIES Unknown Allergies SOCIAL HISTORY No smoking Hx information available PLAN OF CARE Activity Details Follow Up 3 Months Reason: VITAL SIGNS Height 62.5 in 2016-08-01 Weight 266 lbs 2016-08-01 Heart Rate 80 bpm 2016-08-01 Respiratory Rate 20 2016-08-01 BMI 47.87 kg/m2 2016-08-01 Blood pressure systolic 132 mmHg 2016-08-01 Blood pressure diastolic 74 mmHg 2016-08-01 MEDICATIONS Medication Instructions Dosage Frequency Start Date End Date Duration S tatus cyclobenzaprine 10 mg 0.5-1 Tablet by Oral route 3 nicola es per day Jan, Active Actos 30 MG Orally Once a day 1 tablet 24h A ctive Aspirin Adult Low Strength 81 MG Orally Once a day 1 tablet 24h Active Niaspan 750 MG Orally Once a day 1 tablet at bedtime 24h Active HydrOXYzine Pamoate 25 MG Orally twice a day 1 capsule as needed 12 h 05 Dec, 2014 30 days Active Venlafaxine HCl 75 MG Orally Once a day 1 tablet 24h 30 days Active Vitamin B Complex Active Venlafaxine HCl 37.5 MG Orally Once a day 1 tablet 24h 30 days Active Abilify 15 MG Orally Once a day 1 tablet 24h 30 days Active Potassium Bicarb-Citric Acid 10 MEQ Orally 2 times a day 1 tablet 12h Active Fish Oil 1000 MG Orally Twice a day 2 Tablet 1 time per day 12h 14 Jul, 2013 Active Benadryl 25 MG Orally every 6 hrs 1 capsule as needed 6h Active Myrbetriq 50 MG Orally Once a day 1 tablet 24h Active Mirtazapine 15 MG Orally Once a day 1 tablet before bedtime in the evening 24h Mar, 30 days Active Gabapentin 600 MG Orally Three times a day 1 tablet 8h Active Vitamin D 2,000 unit 1 Capsule by Oral route 1 time per day Aug, Active Claritin 10 mg 1 Tablet by Oral route 1 time per day Sep, Active Clonazepam 2 MG Orally Once a day 1 tablet 24h 30 da ys Active Simvastatin 40 MG Orally Once a day 1 tablet in the evening 24h Active Zetia 10 MG Orally Once a day 1 tablet 24h A ctive Metformin HCl 1000 MG Orally Twice a day 1 tablet with meals 12h Active Mometasone Furoate 50 MCG/ACT Nasally Once a day 2 sprays in each nos tril 24h Active Meloxicam 7.5 MG Orally twice a day 1 tablet 12h Active Lisinopril 5 MG 1 Tablet by Oral route 1 time per day Jun, Active Levothyroxine Sodium 50 MCG Orally Once a day 1 tablet 24h Active RESULTS No Results PROCEDURES Procedure Date Ordered Related Diagnosis Body Site [facility] ESTABLISHED PATIENT Aug 01, 2016 Office Visit, Est Pt., Level 3 Aug 01, 2016 IMMUNIZATIONS No Known Immunizations
--- OUTSIDE RECORDS SUMMARY | 2019-09-29 06:20 | XMS REPORT | Continuity of Care Document ---
Author Organization Unknown Address Unknown Phone Unavailable Allergies Active Description Code Type Severity Reaction Onset Reported/Identified Relationship to Patient Clinical Status Yes ciprofloxacin [id number] Stewart g Allergy Mild N/A 11/28/2008 Yes Cipro Drug Allergy N/A N/A 03/09/2011 Yes RASPBERRY Food Allergy N/A N/A 03/09/2011 Yes Cipro Drug Allergy 03/09/2011 Yes RASPBERRY Food Allergy 03/09/2011 Yes adhesive [id number] Drug Allergy Unknown N/A 10/23/2012 Yes iodine [id number] Drug Allergy Unknown HIVES 10/23/2012 Medications There is no data. Problems Date Dx Coded Attending Type Code Diagnosis Diagnosed By 12/31/2008 296.90 MO MOOD DIS NOS 12/31/2008 300.00 AN ANXIETY UNSPEC 12/31/2008 307.47 SI DYSSOMNIA NOS 12/31/2008 296.90 MO MOOD DIS NOS 12/31/2008 300.00 AN ANXIETY UNSPEC 12/31/2008 307.47 SI DYSSOMNIA NOS 12/31/2008 GINA SMITH DO 296 .90 MO MOOD DIS NOS 12/31/2008 GINA SMITH DO 300 .00 AN ANXIETY UNSPEC 12/31/2008 GINA SMITH DO 307 .47 SI DYSSOMNIA NOS 12/31/2008 GINA SMITH DO 296 .90 MO MOOD DIS NOS 12/31/2008 GINA SMITH DO 300 .00 AN ANXIETY UNSPEC 12/31/2008 GINA SMITH DO 307 .47 SI DYSSOMNIA NOS 12/31/2008 BOLA BUTTERFIELD APRN 296.90 MO MOOD DIS NOS 12/31/2008 BOLA BUTTERFIELD APRN 300.00 AN ANXIETY UNSPEC 12/31/2008 BOLA BUTTERFIELD APRN 307.47 SI DYSSOMNIA NOS 12/31/2008 BOLA BUTTERFIELD APRN 296.90 MO MOOD DIS NOS 12/31/2008 BOLA BUTTERFIELD APRN 300.00 AN ANXIETY UNSPEC 12/31/2008 BOLA BUTTERFIELD APRN 307.47 SI DYSSOMNIA NOS 12/31/2008 BOLA BUTTERFIELD APRN 296.90 MO MOOD DIS NOS 12/31/2008 BOLA BUTTERFIELD APRN 300.00 AN ANXIETY UNSPEC 12/31/2008 BOLA BUTTERFIELD APRN 307.47 SI DYSSOMNIA NOS 12/31/2008 BOLA BUTTERFIELD APRN 296.90 MO MOOD DIS NOS 12/31/2008 BOLA BUTTERFIELD APRN 300.00 AN ANXIETY UNSPEC 12/31/2008 BOLA BUTTERFIELD APRN 307.47 SI DYSSOMNIA NOS 12/31/2008 LUNDBERG APRN, VICTORINO MENA 296.90 MO MOOD DIS NOS 12/31/2008 TOÑO JAIME VICTORINO MENA 300.00 AN ANXIETY UNSPEC 12/31/2008 TOÑO JAIME VICTORINO MENA 307.47 SI DYSSOMNIA NOS 12/31/2008 YONIS ARGUETA M 296.90 MO MOOD DIS NOS 12/31/2008 YONIS ARGUETA M 300.00 AN ANXIETY UNSPEC 12/31/2008 YONIS ARGUETA M 307.47 SI DYSSOMNIA NOS 12/31/2008 YONIS ARGUETA M 296.90 MO MOOD DIS NOS 12/31/2008 YONIS ARGUETA M 300.00 AN ANXIETY UNSPEC 12/31/2008 LINDA STENO TYPISTYONIS M 307.47 SI DYSSOMNIA NOS 12/31/2008 LINDA STENO TYPISTYONIS M 296.90 MO MOOD DIS NOS 12/31/2008 LINDA STENO TYPISTYONIS M 300.00 AN ANXIETY UNSPEC 12/31/2008 LINDA STENO TYPISTYONIS M 307.47 SI DYSSOMNIA NOS 01/25/2009 296.89 MO BIPOLAR II 01/25/2009 300.01 AN PANIC DIS W/O AGORA 01/25/2009 296.89 MO BIPOLAR II 01/25/2009 300.01 AN PANIC DIS W/O AGORA 01/25/2009 GINA SMITH DO 296 .89 MO BIPOLAR II 01/25/2009 GINA SMITH DO 300 .01 AN PANIC DIS W/O AGORA 01/25/2009 GINA SMITH DO 296 .89 MO BIPOLAR II 01/25/2009 GINA SMITH DO 300 .01 AN PANIC DIS W/O AGORA 01/25/2009 BOLA BUTTERFIELD APRN 296.89 MO BIPOLAR II 01/25/2009 BOLA BUTTERFIELD APRN 300.01 AN PANIC DIS W/O AGORA 01/25/2009 BOLA BUTTERFIELD APRN 296.89 MO BIPOLAR II 01/25/2009 BOLA BUTTERFIELD APRN 300.01 AN PANIC DIS W/O AGORA 01/25/2009 BOLA BUTTERFIELD APRN 296.89 MO BIPOLAR II 01/25/2009 BOLA BUTTERFIELD APRN 300.01 AN PANIC DIS W/O AGORA 01/25/2009 BOLA BUTTERFIELD APRN 296.89 MO BIPOLAR II 01/25/2009 BOLA BUTTERFIELD APRN 300.01 AN PANIC DIS W/O AGORA 01/25/2009 TOÑO JAIME VICTORINO HERNANDEZH 296.89 MO BIPOLAR II 01/25/2009 TOÑO JAIME VICTORINO HERNANDEZH 300.01 AN PANIC DIS W/O AGORA 01/25/2009 LINDA STENO TYPIST, YONIS M 296.89 MO BIPOLAR II 01/25/2009 LINDA STENO TYPIST, YONIS M 300.01 AN PANIC DIS W/O AGORA 01/25/2009 LINDA STENO TYPIST, YONIS M 296.89 MO BIPOLAR II 01/25/2009 LINDA STENO TYPIST, YONIS M 300.01 AN PANIC DIS W/O AGORA 01/25/2009 LINDA STENO TYPIST, YONIS M 296.89 MO BIPOLAR II 01/25/2009 LINDA STENO TYPIST, YONIS M 300.01 AN PANIC DIS W/O AGORA 02/25/2009 995.20 UNS PECIFIED ADVERSE EFFECT OF UNSPECIFIED DRUG MEDICINAL AND BIOLOGICAL SUBSTANCE 02/25/2009 E939.9 UNS PECIFIED PSYCHOTROPIC AGENT CAUSING ADVERSE EFFECTS IN THERAPEUTIC USE 02/25/2009 995.20 UNS PECIFIED ADVERSE EFFECT OF UNSPECIFIED DRUG MEDICINAL AND BIOLOGICAL SUBSTANCE 02/25/2009 E939.9 UNS PECIFIED PSYCHOTROPIC AGENT CAUSING ADVERSE EFFECTS IN THERAPEUTIC USE 02/25/2009 WERDER DO, GINA F 995 .20 UNSPECIFIED ADVERSE EFFECT OF UNSPECIFIED DRUG MEDICINAL AND BIOLOGICAL SUBSTANCE 02/25/2009 SARAH MARIE GINA F E93 9.9 UNSPECIFIED PSYCHOTROPIC AGENT CAUSING ADVERSE EFFECTS IN THERAPEUTIC USE 02/25/2009 SARAH MARIE GINA F 995 .20 UNSPECIFIED ADVERSE EFFECT OF UNSPECIFIED DRUG MEDICINAL AND BIOLOGICAL SUBSTANCE 02/25/2009 GINA SMITH DO F E93 9.9 UNSPECIFIED PSYCHOTROPIC AGENT CAUSING ADVERSE EFFECTS IN THERAPEUTIC USE 02/25/2009 BOLA BUTTERFIELD APRN 995.20 UNSPECIFIED ADVERSE EFFECT OF UNSPECIFIE D DRUG MEDICINAL AND BIOLOGICAL SUBSTANCE 02/25/2009 BOLA BUTTERFIELD APRN E939.9 UNSPECIFIED PSYCHOTROPIC AGENT CAUSING A DVERSE EFFECTS IN THERAPEUTIC USE 02/25/2009 BOLA BUTTERFIELD APRN 995.20 UNSPECIFIED ADVERSE EFFECT OF UNSPECIFIE D DRUG MEDICINAL AND BIOLOGICAL SUBSTANCE 02/25/2009 BOLA BUTTERFIELD APRN E939.9 UNSPECIFIED PSYCHOTROPIC AGENT CAUSING A DVERSE EFFECTS IN THERAPEUTIC USE 02/25/2009 BOLA BUTTERFIELD APRN 995.20 UNSPECIFIED ADVERSE EFFECT OF UNSPECIFIE D DRUG MEDICINAL AND BIOLOGICAL SUBSTANCE 02/25/2009 BOLA BUTTERFIELD APRN E939.9 UNSPECIFIED PSYCHOTROPIC AGENT CAUSING A DVERSE EFFECTS IN THERAPEUTIC USE 02/25/2009 BOLA BUTTERFIELD APRN 995.20 UNSPECIFIED ADVERSE EFFECT OF UNSPECIFIE D DRUG MEDICINAL AND BIOLOGICAL SUBSTANCE 02/25/2009 BOLA BUTTERFIELD APRN E939.9 UNSPECIFIED PSYCHOTROPIC AGENT CAUSING A DVERSE EFFECTS IN THERAPEUTIC USE 02/25/2009 VICTORINO LUNDBERG APRN 995.20 UNSPECIFIED ADVERSE EFFECT OF UNSPECIFIE D DRUG MEDICINAL AND BIOLOGICAL SUBSTANCE 02/25/2009 VICTORINO LUNDBERG APRN E939.9 UNSPECIFIED PSYCHOTROPIC AGENT CAUSING A DVERSE EFFECTS IN THERAPEUTIC USE 02/25/2009 YONIS ARGUETA 995.20 UNSPECIFIED ADVERSE EFFECT OF UNSPECIFIE D DRUG MEDICINAL AND BIOLOGICAL SUBSTANCE 02/25/2009 YONIS ARGUETA E939.9 UNSPECIFIED PSYCHOTROPIC AGENT CAUSING A DVERSE EFFECTS IN THERAPEUTIC USE 02/25/2009 YONIS ARGUETA 995.20 UNSPECIFIED ADVERSE EFFECT OF UNSPECIFIE D DRUG MEDICINAL AND BIOLOGICAL SUBSTANCE 02/25/2009 LINDAYONIS CARLTON E939.9 UNSPECIFIED PSYCHOTROPIC AGENT CAUSING A DVERSE EFFECTS IN THERAPEUTIC USE 02/25/2009 YONIS ARGUETA 995.20 UNSPECIFIED ADVERSE EFFECT OF UNSPECIFIE D DRUG MEDICINAL AND BIOLOGICAL SUBSTANCE 02/25/2009 LINDAYONIS CARLTON E939.9 UNSPECIFIED PSYCHOTROPIC AGENT CAUSING A DVERSE EFFECTS IN THERAPEUTIC USE 04/28/2009 300.21 AN PANIC DIS W AGORA 04/28/2009 300.21 AN PANIC DIS W AGORA 04/28/2009 GINA SMITH DO 300 .21 AN PANIC DIS W AGORA 04/28/2009 GINA SMITH DO F 300 .21 AN PANIC DIS W AGORA 04/28/2009 BOLA BUTTERFIELD APRN 300.21 AN PANIC DIS W AGORA 04/28/2009 BOLA BUTTERFIELD APRN 300.21 AN PANIC DIS W AGORA 04/28/2009 BOLA BUTTERFIELD APRN 300.21 AN PANIC DIS W AGORA 04/28/2009 BOLA BUTTERFIELD APRN 300.21 AN PANIC DIS W AGORA 04/28/2009 VICTORINO LUNDBERG APRN 300.21 AN PANIC DIS W AGORA 04/28/2009 YONIS ARGUETA 300.21 AN PANIC DIS W AGORA 04/28/2009 YONIS ARGUETA M 300.21 AN PANIC DIS W AGORA 04/28/2009 YONIS ARGUETA M 300.21 AN PANIC DIS W AGORA 05/30/2009 296.30 MO DEPRESSIVE RECURRENT UNSPECIFIED 05/30/2009 296.30 MO DEPRESSIVE RECURRENT UNSPECIFIED 05/30/2009 GINA SMITH DO F 296 .30 MO DEPRESSIVE RECURRENT UNSPECIFIED 05/30/2009 GINA SMITH DO F 296 .30 MO DEPRESSIVE RECURRENT UNSPECIFIED 05/30/2009 BOLA BUTTERFIELD APRN 296.30 MO DEPRESSIVE RECURRENT UNSPECIFIED 05/30/2009 BOLA BUTTERFIELD APRN 296.30 MO DEPRESSIVE RECURRENT UNSPECIFIED 05/30/2009 BOLA BUTTERFIELD APRN 296.30 MO DEPRESSIVE RECURRENT UNSPECIFIED 05/30/2009 BOLA BUTTERFIELD APRN 296.30 MO DEPRESSIVE RECURRENT UNSPECIFIED 05/30/2009 VICTORINO LUNDBERG APRN 296.30 MO DEPRESSIVE RECURRENT UNSPECIFIED 05/30/2009 YONIS ARGUETA 296.30 MO DEPRESSIVE RECURRENT UNSPECIFIED 05/30/2009 YONIS ARGUETA 296.30 MO DEPRESSIVE RECURRENT UNSPECIFIED 05/30/2009 YONIS ARGUETA 296.30 MO DEPRESSIVE RECURRENT UNSPECIFIED 09/13/2012 Ot 883.0 OPEN WOUND OF FINGER 09/13/2012 Ot E000.8 OTH ER EXTERNAL CAUSE STATUS 09/13/2012 Ot E849.0 ACC IDENT IN HOME 09/13/2012 Ot E906.0 DOG BITE 10/29/2012 Ot 250.00 EDMAR B SHAJI WO COMPL, TYPE II OR UNSPEC TY 10/29/2012 Ot 272.0 PURE HYPERCHOLESTEROLEM 10/29/2012 Ot 296.80 BIP OLAR DISORDER, UNSPECIFIED 10/29/2012 Ot 717.40 IRA ANG LAT MENISCUS NOS 10/29/2012 Ot 717.7 AYO DROMALACIA PATELLAE 10/29/2012 Ot V57.1 PHYS ICAL THERAPY NEC 10/29/2012 Ot V58.69 OTH MED,LT,CURRENT USE 02/18/2013 ANNAMARIA AGUILAR, GABI Hicks Ot 717.2 DERANG POST MED MENISCUS 02/18/2013 ANNAMARIA AGUILAR, GABI Hicks Ot 717.43 DERANG POST LAT MENISCUS 02/18/2013 GABI YIN MD Ot 717.7 CHONDROMALACIA PATELLAE 02/18/2013 ANNAMARIA AGUILAR, GABI Hicks Ot 726.65 PREPATELLAR BURSITIS 02/18/2013 GABI YIN MD Ot 733.92 CHONDROMALACIA 08/04/2013 BOLA BUTTERFIELD APRN 307.42 PERSISTENT DISORDER OF INITIATING OR MAINTAINING SLEEP 08/04/2013 BOLA BUTTERFIELD APRN 307.42 PERSISTENT DISORDER OF INITIATING OR MAINTAINING SLEEP 08/04/2013 BOLA BUTTERFIELD APRN 307.42 PERSISTENT DISORDER OF INITIATING OR MAINTAINING SLEEP 08/04/2013 BOLA BUTTERFIELD APRN 307.42 PERSISTENT DISORDER OF INITIATING OR MAINTAINING SLEEP 08/04/2013 VICTORINO LUNDBERG APRN 307.42 PERSISTENT DISORDER OF INITIATING OR MAINTAINING SLEEP 08/04/2013 YONIS ARGUETA 307.42 PERSISTENT DISORDER OF INITIATING OR MAINTAINING SLEEP 08/04/2013 YONIS ARGUETA 307.42 PERSISTENT DISORDER OF INITIATING OR MAINTAINING SLEEP 08/04/2013 YONIS ARGUETA 307.42 PERSISTENT DISORDER OF INITIATING OR MAINTAINING SLEEP 05/05/2014 SIMÓN RUIZ CYLINDER FILLER Ot 250.00 DIAB SHAJI WO COMPL, TYPE II OR UNSPEC TY 05/05/2014 SIMÓN RUIZ CYLINDER FILLER Ot 459.81 VENOUS INSUFFICIENCY NOS 05/05/2014 SIMÓN RUIZ CYLINDER FILLER Ot 707.10 ULCER OF LOWER LIMB NOS 05/28/2014 YONIS ARGUETA 296.33 MO DEPRESSIVE RECURRENT SEVERE W/O PSYCHOTIC BEHAVIOR 05/28/2014 YONIS ARGUETA 296.33 MO DEPRESSIVE RECURRENT SEVERE W/O PSYCHOTIC BEHAVIOR 05/28/2014 YONIS ARGUETA 296.33 MO DEPRESSIVE RECURRENT SEVERE W/O PSYCHOTIC BEHAVIOR 02/02/2015 ANNAMARIA AGUILAR, GABI Hicks Ot 354.0 CARPAL TUNNEL SYNDROME 02/18/2015 GABI YIN MD Ot 354.0 02/18/2015 GABI YIN MD Ot V72.83 02/18/2015 GABI YIN MD Ot V74.8 03/08/2015 GABI YIN MD Ot 354.0 03/08/2015 GABI YIN MD Ot V72.83 03/08/2015 GABI YIN MD Ot V74.8 01/31/2018 Ot 719.66 IMMANUEL NT SYMPTOM NEC-L/LEG 01/31/2018 Ot V72.83 EXA M PRE- OPERATIVE NEC 01/31/2018 Ot V74.8 SCRE EN-BACTERIAL DIS NEC 01/31/2018 AGBI YIN MD Ot 214.1 LIPOMA SKIN NEC 01/31/2018 GABI YIN MD Ot 717.3 DERANG MED MENISCUS NEC 01/31/2018 GABI YIN MD Ot V72.83 EXAM PRE-OPERATIVE NEC 01/31/2018 GABI YIN MD Ot V74.8 SCREEN-BACTERIAL DIS NEC 01/31/2018 GABI YIN MD Ot 354.0 CARPAL TUNNEL SYNDROME 01/31/2018 GABI YIN MD Ot V72.83 EXAM PRE-OPERATIVE NEC 01/31/2018 ANNAMARIA AGUILAR, GABI Hicks Ot V74.8 SCREEN-BACTERIAL DIS NEC 02/03/2018 Ot 719.66 IMMANUEL NT SYMPTOM NEC-L/LEG 02/03/2018 Ot V72.83 EXA M PRE- OPERATIVE NEC 02/03/2018 Ot V74.8 SCRE EN-BACTERIAL DIS NEC 02/03/2018 ANNAMARIA AGUILAR, GABI Hicks Ot 214.1 LIPOMA SKIN NEC 02/03/2018 ANNAMARIA AGUILAR, GABI Hicks Ot 717.3 DERANG MED MENISCUS NEC 02/03/2018 ANNAMARIA AGUILAR, GABI Hicks Ot V72.83 EXAM PRE-OPERATIVE NEC 02/03/2018 ANNAMARIA AGUILAR, GABI Hicks Ot V74.8 SCREEN-BACTERIAL DIS NEC 02/03/2018 ANNAMARIA AGUILAR, GABI Hicks Ot 354.0 CARPAL TUNNEL SYNDROME 02/03/2018 ANNAMARIA AGUILAR, GABI Hicks Ot V72.83 EXAM PRE-OPERATIVE NEC 02/03/2018 ANNAMARIA AGUILAR, GABI Hicks Ot V74.8 SCREEN-BACTERIAL DIS NEC 02/04/2018 DENNY VASQUEZ CYLINDER FILLER Ot E04.0 NONTOXIC DIFFUSE GOITER 02/04/2018 DENNY VASQUEZ CYLINDER FILLER Ot E04.0 NONTOXIC DIFFUSE GOITER 02/09/2018 DENNY VASQUEZ CYLINDER FILLER Ot E04.0 NONTOXIC DIFFUSE GOITER 05/20/2018 DENNY VASQUEZ CYLINDER FILLER Ot E04.1 NONTOXIC SINGLE THYROID NODULE 05/29/2018 DENNY VASQUEZ CYLINDER FILLER Ot E04.1 NONTOXIC SINGLE THYROID NODULE 10/13/2018 NELLY VASQUEZ DO Ot R07.9 CHEST PAIN, UNSPECIFIED 10/13/2018 NELLY VASQUEZ DO Ot R53.83 OTHER FATIGUE 11/06/2018 DENNY VASQUEZ CYLINDER FILLER Ot G47.33 OBSTRUCTIVE SLEEP APNEA (ADULT) (PEDIATR 11/10/2018 NELLY VASQUEZ DO Ot R07.9 CHEST PAIN, UNSPECIFIED 11/10/2018 NELLY VASQUEZ DO Ot R53.83 OTHER FATIGUE 11/12/2018 DENNY VASQUEZ CYLINDER FILLER Ot G47.33 OBSTRUCTIVE SLEEP APNEA (ADULT) (PEDIATR 11/12/2018 VASQUEZ, DENNY L CYLINDER FILLER Ot G47.33 OBSTRUCTIVE SLEEP APNEA (ADULT) (PEDIATR 11/13/2018 ANNAMARIA AGUILAR, GABI Hicks Ot 354.0 CARPAL TUNNEL SYNDROME 11/13/2018 ANNAMARIA AGUILAR, GABI Hicks Ot V72.83 EXAM PRE-OPERATIVE NEC 11/13/2018 ANNAMARIA AGUILAR, GABI Hicks Ot V74.8 SCREEN-BACTERIAL DIS NEC 11/13/2018 DENNY VASQUEZ CYLINDER FILLER Ot E04.0 NONTOXIC DIFFUSE GOITER 11/13/2018 DENNY VASQUEZ CYLINDER FILLER Ot E04.1 NONTOXIC SINGLE THYROID NODULE 11/13/2018 NELLY VASQUEZ DO Ot R07.9 CHEST PAIN, UNSPECIFIED 11/13/2018 NELLY VASQUEZ DO Ot R53.83 OTHER FATIGUE 11/13/2018 DENNY VASQUEZ CYLINDER FILLER Ot G47.33 OBSTRUCTIVE SLEEP APNEA (ADULT) (PEDIATR 11/13/2018 SUDHA VASQUEZIA Calos CYLINDER FILLER Ot G47.33 OBSTRUCTIVE SLEEP APNEA (ADULT) (PEDIATR 11/13/2018 SUDHA VASQUEZIA L CYLINDER FILLER Ot G47.10 HYPERSOMNIA, UNSPECIFIED 11/13/2018 RAKESH VASQUEZRICIA L CYLINDER FILLER Ot G47.33 OBSTRUCTIVE SLEEP APNEA (ADULT) (PEDIATR 11/13/2018 SUDHA VASQUEZIA L CYLINDER FILLER Ot R06.83 SNORING 11/14/2018 SUDHA VASQUEZIA L CYLINDER FILLER Ot G47.10 HYPERSOMNIA, UNSPECIFIED 11/14/2018 SUDHA VASQUEZIA L CYLINDER FILLER Ot G47.33 OBSTRUCTIVE SLEEP APNEA (ADULT) (PEDIATR 11/14/2018 SUDHA VASQUEZIA L CYLINDER FILLER Ot R06.83 SNORING 11/18/2018 NELLY VASQUEZ DO Ot R07.9 CHEST PAIN, UNSPECIFIED 11/18/2018 NELLY VASQUEZ DO Ot R53.83 OTHER FATIGUE 11/19/2018 SUDHA VASQUEZIA L CYLINDER FILLER Ot G47.10 HYPERSOMNIA, UNSPECIFIED 11/19/2018 DENNY VASQUEZ L CYLINDER FILLER Ot G47.33 OBSTRUCTIVE SLEEP APNEA (ADULT) (PEDIATR 11/19/2018 DENNY VASQUEZ L CYLINDER FILLER Ot R06.83 SNORING 01/04/2019 DENNY VASQUEZ CYLINDER FILLER Ot J30.9 ALLERGIC RHINITIS, UNSPECIFIED 01/04/2019 DENNY VASQUEZ CYLINDER FILLER Ot M25.531 PAIN IN RIGHT WRIST 01/04/2019 DENNY VASQUEZ CYLINDER FILLER Ot W19.XXXA UNSPECIFIED FALL, INITIAL ENCOUNTER 09/16/2019 ANNAMARIA AGUILAR, GAIB Hicks Ot 354.0 CARPAL TUNNEL SYNDROME 09/16/2019 ANNAMARIA AGUILAR, GABI Hicks Ot V72.83 EXAM PRE-OPERATIVE NEC 09/16/2019 ANNAMARIA AGUILAR, GABI Hicks Ot V74.8 SCREEN-BACTERIAL DIS NEC 09/16/2019 DENNY VASQUEZ CYLINDER FILLER Ot E04.0 NONTOXIC DIFFUSE GOITER 09/16/2019 DENNY VASQUEZ CYLINDER FILLER Ot E04.1 NONTOXIC SINGLE THYROID NODULE 09/16/2019 NELLY VASQUEZ DO Ot R07.9 CHEST PAIN, UNSPECIFIED 09/16/2019 NELLY VASQUEZ DO Ot R53.83 OTHER FATIGUE 09/16/2019 DENNY VASQUEZ CYLINDER FILLER Ot J30.9 ALLERGIC RHINITIS, UNSPECIFIED 09/16/2019 DENNY VASQUEZ CYLINDER FILLER Ot M25.531 PAIN IN RIGHT WRIST 09/16/2019 DENNY VASQUEZ CYLINDER FILLER Ot W19.XXXA UNSPECIFIED FALL, INITIAL ENCOUNTER 09/21/2019 GABI YIN MD Ot 354.0 CARPAL TUNNEL SYNDROME 09/21/2019 GABI YIN MD Ot V72.83 EXAM PRE-OPERATIVE NEC 09/21/2019 GABI YIN MD Ot V74.8 SCREEN-BACTERIAL DIS NEC 09/21/2019 DENNY VASQUEZ CYLINDER FILLER Ot E04.0 NONTOXIC DIFFUSE GOITER 09/21/2019 DENNY VASQUEZ CYLINDER FILLER Ot E04.1 NONTOXIC SINGLE THYROID NODULE 09/21/2019 NELLY VASQUEZ DO Ot R07.9 CHEST PAIN, UNSPECIFIED 09/21/2019 NELLY VASQUEZ DO Ot R53.83 OTHER FATIGUE 09/21/2019 DENNY VASQUEZ CYLINDER FILLER Ot J30.9 ALLERGIC RHINITIS, UNSPECIFIED 09/21/2019 DENNY VASQUEZ CYLINDER FILLER Ot M25.531 PAIN IN RIGHT WRIST 09/21/2019 DENNY VASQUEZ CYLINDER FILLER Ot W19.XXXA UNSPECIFIED FALL, INITIAL ENCOUNTER 09/21/2019 GABI YIN MD Ot 354.0 CARPAL TUNNEL SYNDROME 09/21/2019 GABI YIN MD Ot V72.83 EXAM PRE-OPERATIVE NEC 09/21/2019 ANNAMARIA AGUILAR, GABI Hicks Ot V74.8 SCREEN-BACTERIAL DIS NEC 09/21/2019 DENNY VASQUEZ L CYLINDER FILLER Ot E04.0 NONTOXIC DIFFUSE GOITER 09/21/2019 DENNY VASQUEZ CYLINDER FILLER Ot E04.1 NONTOXIC SINGLE THYROID NODULE 09/21/2019 PEDRO MARIE, NELLY Stoner Ot R07.9 CHEST PAIN, UNSPECIFIED 09/21/2019 PEDRO MARIE, NELLY Stoner Ot R53.83 OTHER FATIGUE 09/21/2019 DENNY VASQUEZ CYLINDER FILLER Ot J30.9 ALLERGIC RHINITIS, UNSPECIFIED 09/21/2019 SUDHA VASQUEZIA L CYLINDER FILLER Ot M25.531 PAIN IN RIGHT WRIST 09/21/2019 SUDHA VASQUEZIA Calos CYLINDER FILLER Ot W19.XXXA UNSPECIFIED FALL, INITIAL ENCOUNTER 09/23/2019 GABI YIN MD Ot 354.0 CARPAL TUNNEL SYNDROME 09/23/2019 GABI YIN MD Ot V72.83 EXAM PRE-OPERATIVE NEC 09/23/2019 GABI YIN MD Ot V74.8 SCREEN-BACTERIAL DIS NEC 09/23/2019 DENNY VASQUEZ CYLINDER FILLER Ot E04.0 NONTOXIC DIFFUSE GOITER 09/23/2019 DENNY VASQUEZ CYLINDER FILLER Ot E04.1 NONTOXIC SINGLE THYROID NODULE 09/23/2019 PEDRO MARIE, NELLY Stoner Ot R07.9 CHEST PAIN, UNSPECIFIED 09/23/2019 PEDRO MARIE, NELLY Stoner Ot R53.83 OTHER FATIGUE 09/23/2019 DENNY VASQUEZ CYLINDER FILLER Ot J30.9 ALLERGIC RHINITIS, UNSPECIFIED 09/23/2019 SUDHA VASQUEZIA L CYLINDER FILLER Ot M25.531 PAIN IN RIGHT WRIST 09/23/2019 SUDHA VASQUEZIA L CYLINDER FILLER Ot W19.XXXA UNSPECIFIED FALL, INITIAL ENCOUNTER 09/23/2019 GABI YIN MD Ot 354.0 CARPAL TUNNEL SYNDROME 09/23/2019 GABI YIN MD Ot V72.83 EXAM PRE-OPERATIVE NEC 09/23/2019 GABI YIN MD Ot V74.8 SCREEN-BACTERIAL DIS NEC 09/23/2019 DENNY VASQUEZ CYLINDER FILLER Ot E04.0 NONTOXIC DIFFUSE GOITER 09/23/2019 SUDHA VASQUEZIA L CYLINDER FILLER Ot E04.1 NONTOXIC SINGLE THYROID NODULE 09/23/2019 PEDRO DO, NELLY J Ot R07.9 CHEST PAIN, UNSPECIFIED 09/23/2019 VASQUEZ DO, NELLY J Ot R53.83 OTHER FATIGUE 09/23/2019 SUDHA VASQUEZIA L CYLINDER FILLER Ot J30.9 ALLERGIC RHINITIS, UNSPECIFIED 09/23/2019 SUDHA VASQUEZIA L CYLINDER FILLER Ot M25.531 PAIN IN RIGHT WRIST 09/23/2019 SUDHA VASQUEZIA L CYLINDER FILLER Ot W19.XXXA UNSPECIFIED FALL, INITIAL ENCOUNTER 09/23/2019 GABI YIN MD Ot 354.0 CARPAL TUNNEL SYNDROME 09/23/2019 GABI YIN MD Ot V72.83 EXAM PRE-OPERATIVE NEC 09/23/2019 GABI YIN MD Ot V74.8 SCREEN-BACTERIAL DIS NEC 09/23/2019 DENNY VASQUEZ CYLINDER FILLER Ot E04.0 NONTOXIC DIFFUSE GOITER 09/23/2019 SUDHA VASQUEZIA L CYLINDER FILLER Ot E04.1 NONTOXIC SINGLE THYROID NODULE 09/23/2019 PEDRO MARIE, NELLY Stoner Ot R07.9 CHEST PAIN, UNSPECIFIED 09/23/2019 VASQUEZ DO, NELLY J Ot R53.83 OTHER FATIGUE 09/23/2019 SUDHA VASQUEZIA L CYLINDER FILLER Ot J30.9 ALLERGIC RHINITIS, UNSPECIFIED 09/23/2019 SUDHA VASQUEZIA L CYLINDER FILLER Ot M25.531 PAIN IN RIGHT WRIST 09/23/2019 SUDHA VASQUEZIA L CYLINDER FILLER Ot W19.XXXA UNSPECIFIED FALL, INITIAL ENCOUNTER 09/23/2019 GABI YIN MD Ot 354.0 CARPAL TUNNEL SYNDROME 09/23/2019 GABI YIN MD Ot V72.83 EXAM PRE-OPERATIVE NEC 09/23/2019 ANNAMARIA AGUILAR, GABI Hicks Ot V74.8 SCREEN-BACTERIAL DIS NEC 09/23/2019 SUDHA VASQUEZIA Calos CYLINDER FILLER Ot E04.0 NONTOXIC DIFFUSE GOITER 09/23/2019 RAKESH VASQUEZRICIA L CYLINDER FILLER Ot E04.1 NONTOXIC SINGLE THYROID NODULE 09/23/2019 NELLY VASQUEZ DO Ot R07.9 CHEST PAIN, UNSPECIFIED 09/23/2019 NELLY VASQUEZ DO Ot R53.83 OTHER FATIGUE 09/23/2019 SUDHA VASQUEZIA Calos CYLINDER FILLER Ot J30.9 ALLERGIC RHINITIS, UNSPECIFIED 09/23/2019 RAKESH VASQUEZRICIA L CYLINDER FILLER Ot M25.531 PAIN IN RIGHT WRIST 09/23/2019 SUDHA VASQUEZIA Calos CYLINDER FILLER Ot W19.XXXA UNSPECIFIED FALL, INITIAL ENCOUNTER 09/23/2019 BRITTA AGUILAR, MAK Hilario Ot Z01.818 ENCOUNTER FOR OTHER PREPROCEDURAL EXAMIN 09/25/2019 GABI YIN MD Ot 354.0 CARPAL TUNNEL SYNDROME 09/25/2019 GABI YIN MD Ot V72.83 EXAM PRE-OPERATIVE NEC 09/25/2019 GABI YIN MD Ot V74.8 SCREEN-BACTERIAL DIS NEC 09/25/2019 DENNY VASQUEZ CYLINDER FILLER Ot E04.0 NONTOXIC DIFFUSE GOITER 09/25/2019 SUDHA VASQUEZIA Calos CYLINDER FILLER Ot E04.1 NONTOXIC SINGLE THYROID NODULE 09/25/2019 NELLY VASQUEZ DO Ot R07.9 CHEST PAIN, UNSPECIFIED 09/25/2019 NELLY VASQUEZ DO Ot R53.83 OTHER FATIGUE 09/25/2019 SUDHA VASQUEZIA Calos CYLINDER FILLER Ot J30.9 ALLERGIC RHINITIS, UNSPECIFIED 09/25/2019 RAKESH VASQUEZRICIA L CYLINDER FILLER Ot M25.531 PAIN IN RIGHT WRIST 09/25/2019 SUDHA VASQUEZIA L CYLINDER FILLER Ot W19.XXXA UNSPECIFIED FALL, INITIAL ENCOUNTER Procedures There is no data. Results Test Result Range Capillary blood glucose measurement by g lucometer (mass/volume) - 09/25/19 09:08 Capillary blood glucose measurement by glucometer (mas s/volume) 98 mg/dL 70-110 Encounters ACCT No. Visit Date/Time Discharge Status Pt. Type Provider Facility Loc./Unit Complaint [id number] 09/24/2014 09:50:00 09/24/2014 23:59: 59 CLS Outpatient YONIS ARGUETA [id number] 05/28/2014 15:51:00 05/28/2014 23:59: 59 CLS Outpatient LINDAYONIS CARLTON [id number] 05/28/2014 15:51:00 05/28/2014 23:59: 59 CLS Outpatient YONIS ARGUETA [id number] 02/02/2014 13:22:00 02/02/2014 23:59: 59 CLS Outpatient TOÑO ADDISON VICTORINO MENA [id number] 11/03/2013 12:55:00 11/03/2013 23:59: 59 CLS Outpatient BOLA BUTTERFIELD APRN [id number] 11/03/2013 12:55:00 11/03/2013 23:59: 59 CLS Outpatient BOLA BUTTERFIELD APRN [id number] 08/04/2013 12:55:00 08/04/2013 23:59: 59 CLS Outpatient BOLA BUTTERFIELD APRN [id number] 08/04/2013 12:55:00 08/04/2013 23:59: 59 CLS Outpatient BOLA BUTTERFIELD APRN [id number] 04/02/2013 12:22:00 04/02/2013 23:59: 59 CLS Outpatient GINA SMITH DO [id number] 10/04/2012 09:24:00 10/04/2012 23:59: 59 CLS Outpatient GIAN SMITH DO [id number] 07/07/2012 10:51:00 07/07/2012 23:59: 59 CLS Outpatient [id number] 04/08/2012 09:56:00 04/08/2012 23:59:5 9 CLS Outpatient [id number] 09/25/2019 08:48:00 11:33:00 DIS Outpatient MAK CALLEJAS MD [facility] ENDO SCREENING [id number] 09/23/2019 06:07:00 09:45:00 DIS Outpatient MAK CALLEJAS MD [facility] PREOP COLONOSCOPY [id number] 09/23/2019 08:45:00 08:45:00 CAN Preadmit DENNY VASQUEZ CYLINDER FILLER [facility] RAD PERSONALITY TAWANDA NGE,SHORT TERM MEMORY LOSS [id number] 12/25/2018 10:24:00 019 23:59:59 CLS Outpatient DENNY VASQUEZ CYLINDER FILLER [facility] RAD J30.9,M25.531 [id number] 11/13/2018 13:56:00 019 14:30:00 DIS Outpatient DENNY VASQUEZ CYLINDER FILLER [facility] SLEEP GEOVANNI [id number] 10/10/2018 06:39:00 019 23:59:59 CLS Outpatient NELLY VASQUEZ DO [facility] CARD CHEST PAIN,FATI IGNACIO [id number] 05/15/2018 12:23:00 018 23:59:59 CLS Outpatient DENNY VASQUEZ CYLINDER FILLER [facility] RAD THYROID NODULAR [id number] 04/10/2018 12:06:00 018 23:59:59 CLS Preadmit DENNY VASQUEZ CYLINDER FILLER [facility] SLEEP G47.33 GEOVANNI [id number] 02/03/2018 12:41:00 018 23:59:59 CLS Outpatient DENNY VASQUEZ CYLINDER FILLER [facility] RAD THYROMEGELY [id number] 02/02/2015 06:21:00 015 09:15:00 DIS Outpatient GABI YIN MD [facility] SDC CARPAL TUNNEL SYNDROME [id number] 01/28/2015 09:15:00 015 23:59:59 CLS Outpatient GABI YIN MD [facility] PREOP CARPAL TUNNEL SYNDROME [id number] 03/26/2014 13:05:00 014 15:13:00 DIS Outpatient SIMÓN RUIZ CYLINDER FILLER [facility] WOUNDCARE RT LOWER EX VENOUS KORIN IS ULCER [id number] 02/18/2013 06:06:00 013 10:20:00 DIS Outpatient GABI YIN MD [facility] SDC RIGHT TORN MENISCUS [id number] 02/13/2013 11:51:00 013 23:59:59 CLS Outpatient GABI YIN MD [facility] PREOP RIGHT TORN MEDIAL MENIS CUS,LIPOMA [id number] 10/29/2012 11:40:00 Document Registration [id number] 10/23/2012 11:51:00 Document Registration [id number] 09/13/2012 13:04:00 Document Registration
--- OUTSIDE RECORDS SUMMARY | 2019-09-29 06:20 | XMS REPORT ---
Author Author Lisa MCKEON Organization [facility] Address Unknown Care Team Providers Care Steam Pressure Chamber Operator Name Role Phone YONIS MCKEON Unavailable PROBLEMS Type Condition ICD9-CM Code UCR52-AH Code Onset Dates Condition S tatus SNOMED Code Problem Major depressive disorder, r ecurrent episode, severe, without mention of psychotic behavior 296.33 Active 05560116 Problem Persistent disorder of initiating or maintaining sleep 307 .42 Active [id number] ALLERGIES Unknown Allergies SOCIAL HISTORY No smoking [...]
--- OUTSIDE RECORDS SUMMARY | 2019-09-29 06:20 | XMS REPORT ---
Author Author Lisa MCKEON Organization [employer] Address Unknown Phone Unavailable Care Team Providers Care Analytical Scientist Name Role Phone YONIS MCKEON CP Unavailable Allergies No Known Allergies Problems Problem Type Condition Code Onset Dates Condition Statu s Problem Persistent disorder of initiating or maintaining sleep 307.42 Active Problem Major depressive disorder, r ecurrent episode, severe, without mention of psychotic behavior 296.33 Active Medications Medication Code System Code Instructions Start Date End Date Status Dosage Venlafaxine HCl [facility] [address]-55 75 MG Orally Once a day 1 tablet Venlafaxine HCl [facility] [address]-63 37.5 MG Orally Once a day 1 tablet Results No Known Results Summary Purpose [employer] Submission
--- OUTSIDE RECORDS SUMMARY | 2019-09-29 06:20 | XMS REPORT ---
Author Author Lisa Becerril Organization [facility] Address Unknown Care Team Providers Care Sports Umpire Name Role Phone YONIS Becerril Unavailable PROBLEMS Type Condition ICD9-CM Code AGH35-SB Code Onset Dates Condition S tatus SNOMED Code Problem Major depression F32.9 Active 370 798127 Problem Generalized anxiety disorder F41.1 A ctive 52018909 Problem Persistent disorder of initiating or maintaining sleep 307 .42 Active 62094536 Problem Depression, major, recurrent, moderate F33.1 Active 35092670 Problem Major depressive disorder, r ecurrent episode, severe, without mention of psychotic behavior 296.33 Active 61123231 ALLERGIES No Information SOCIAL HISTORY Never Assessed PLAN OF CARE Activity Details Follow Up 3 Months Reason: VITAL SIGNS Height 62.5 in 2016-11-14 Weight 270.3 lbs 2016-11-14 Heart Rate 88 bpm 2016-11-14 Respiratory Rate 20 2016-11-14 BMI 48.65 kg/m2 2016-11-14 Blood pressure systolic 126 mmHg 2016-11-14 Blood pressure diastolic 80 mmHg 2016-11-14 MEDICATIONS Medication Instructions Dosage Frequency Start Date End Date Duration S tatus Mometasone Furoate 50 MCG/ACT Nasally Once a day 2 sprays in each nos tril 24h Active cyclobenzaprine 10 mg 0.5-1 Tablet by Oral route 3 nicola es per day Jan, Active Venlafaxine HCl 37.5 MG Orally Once a day 1 tablet 24h 30 days Active Lisinopril 5 MG 1 Tablet by Oral route 1 time per day Jun, Active Zetia 10 MG Orally Once a day 1 tablet 24h A ctive Vitamin B Complex Active Metformin HCl 1000 MG Orally Twice a day 1 tablet with meals 12h Active Meloxicam 7.5 MG Orally twice a day 1 tablet 12h Active HydrOXYzine Pamoate 25 MG Orally twice a day 1 capsule as needed 12 h 05 Dec, 2014 30 days Active Niaspan 750 MG Orally Once a day 1 tablet at bedtime 24h Active Vitamin D 2,000 unit 1 Capsule by Oral route 1 time per day 17 Aug, 2011 Active Venlafaxine HCl 75 MG Orally Once a day 1 tablet 24h 30 days Active Clonazepam 2 MG Orally Once a day 1 tablet 24h 30 da Active Gabapentin 600 MG Orally Three times a day 1 tablet 8h Active Simvastatin 40 MG Orally Once a day 1 tablet in the evening 24h Active Aspirin Adult Low Strength 81 MG Orally Once a day 1 tablet 24h Active Benadryl 25 MG Orally every 6 hrs 1 capsule as needed 6h Active Abilify 15 MG Orally Once a day 1 tablet 24h 30 days Active Fish Oil 1000 MG Orally Twice a day 2 Tablet 1 time per day 12h 14 Jul, 2013 Active Potassium Bicarb-Citric Acid 10 MEQ Orally 2 times a day 1 tablet 12h Active Claritin 10 mg 1 Tablet by Oral route 1 time per day Sep, Active Mirtazapine 15 MG Orally Once a day 1 tablet before bedtime in the evening 24h 09 Mar, 2015 30 days Active Actos 30 MG Orally Once a day 1 tablet 24h A ctive Myrbetriq 50 MG Orally Once a day 1 tablet 24h Active Levothyroxine Sodium 50 MCG Orally Once a day 1 tablet 24h Active RESULTS No Results PROCEDURES Procedure Date Ordered Result Body Site [facility] VISIT ESTABLISHED PATIENT November 14, 2016 IMMUNIZATIONS No Known Immunizations MEDICAL (GENERAL) HISTORY Type Description Date Medical History diabetes type II Medical History hypercholesterolemia Medical History hypertriglyceridemia Medical History peripheral neuropathy (bilateral LEs) Surgical History Right hand carpal tunnel surgery 01/2015 Surgical History gallbladder Surgical History tubal ligation Surgical History appendectomy Surgical History hiatal hernia Surgical History bilateral arthroscopic knees Hospitalization History surgeries Hospitalization History [facility] unit for depression 200 4
--- OUTSIDE RECORDS SUMMARY | 2019-09-29 06:20 | XMS REPORT ---
Author Author Lisa MCKEON [facility] [employer] Address Unknown Phone Unavailable Care Team Providers Care Billiard Table Assembler Name Role Phone YONIS MCKEON CP Unavailable Allergies, Adverse Reactions, Alerts Substance Reaction Event Type Cipro anaphylaxis Drug Allergy raspberry hives Non Drug Allergy Problems Problem Type Condition ICD-9 Code Onset Dates Condition Statu s Problem Persistent disorder of initiating or maintaining sleep 307.42 Active Assessment Anxiety 300.00 Active Problem Major depressive disorder, r ecurrent episode, severe, without mention of psychotic behavior 296.33 Active Assessment Major depressive disorder, recurrent episode, severe 2 96.33 Active Medications Medication Code System Code Instructions Start Date End Date Status Dosage Aspirin Adult Low Strength [facility] [address]-96 81 MG Orally Once a day 1 tablet Venlafaxine HCl [facility] [address]-15 37.5 MG Orally Once a day 1 tablet Abilify [facility] [address]-26 10 mg Orally Once a day December 24, 2014 1 tablet Vitamin B Complex [facility] [address]561 Orally n ot defined Fish Oil [facility] [address]-56 1000 MG Orally Twice a day Aug 04, 2013 2 Tablet 1 time per day Metformin HCl [facility] [address]-81 1000 MG Orally Twice a day 1 tablet with meals Myrbetriq [facility] [address]-51 50 MG Orally Once a day 1 tablet Vitamin D [facility] [address]-93 2,000 unit Sep 07, 2011 1 Capsule by Oral route 1 time per day Claritin [facility] [address]-50 10 mg September 24, 2014 1 Tablet by Oral route 1 time per day cyclobenzaprine [facility] [address]-19 10 mg February 02, 2014 0.5-1 Tablet by Oral route 3 times per day Actos [facility] [address]-35 30 MG Orally Once a day 1 tablet Meloxicam [facility] [address]-41 7.5 MG Orally twice a day 1 tablet Mirtazapine [facility] [address]-28 15 MG Orally Once a day Mar 30, 2015 1 tablet before bedtime in the evening Simvastatin [facility] [address]-17 40 MG Orally Once a day 1 tablet in the evening Niaspan [facility] [address]-28 750 MG Orally Once a day 1 tablet at bedtime Zetia [facility] [address]-03 10 MG Orally Once a day 1 tablet Venlafaxine HCl [facility] [address]-10 75 MG Orally Once a day 1 tablet Clonazepam [facility] [address]-17 2 MG Orally Once a day qHS for sleep TAKE ONE TABLET Levothyroxine Sodium [facility] [address]-40 50 MCG Orally Once a day 1 tablet Mometasone Furoate [facility] [address]-51 50 MCG/ACT Nasally Once a day 2 sprays in each nostril Gabapentin [facility] [address]-29 600 MG Orally Three times a day 1 tablet Potassium Bicarb-Citric Acid [facility] [address]-28 10 MEQ Orally 2 t imes a day 1 tablet Hydrocodone-Acetaminophen [facility]AM[facility] [address]-52 5-500 mg February 02, 2014 1 Capsule by Oral route 3 times per day PRN pain Benadryl [facility] [address]-42 25 MG Orally every 6 hrs 1 capsule as needed HydrOXYzine Pamoate [facility] [address]-45 25 MG Orally twice a day [facility] 2014 1 capsule as needed Lisinopril [facility] [address]-79 5 mg Jul 07, 2012 1 Tablet by Oral route 1 time per day Procedures Procedure Coding System Code Date Office Visit, Est Pt., Level 3 CPT-4 00714 Mar 30, 2015 [facility] VISIT ESTABLISHED PATIENT CPT-4 G0467 S ept 2014 Vital Signs Date/Time: Mar 30, 2015 Temperature 98.0 F Weight 262.1 lbs Height 62.5 in BMI 47.17 Index Blood Pressure Diastolic 80 mmHg Blood Pressure Systolic 110 mmHg Cardiac Monitoring Heart Rate 88 bpm Results No Known Results Summary Purpose [employer] Submission
--- OUTSIDE RECORDS SUMMARY | 2019-09-29 06:20 | XMS REPORT ---
Author Author Lisa MCKEON Organization [employer] Address Unknown Phone Unavailable Care Team Providers Care Supervisor Alteration Workroom Name Role Phone YONIS MCKEON CP Unavailable Allergies No Known Allergies Problems Problem Type Condition Code Onset Dates Condition Statu s Problem Persistent disorder of initiating or maintaining sleep 307.42 Active Problem Major depressive disorder, r ecurrent episode, severe, without mention of psychotic behavior 296.33 Active Medications Medication Code System Code Instructions Start Date End Date Status Dosage Clonazepam [facility] [place] [id number] 2 TAKE ONE TABLET BY MOUTH EVERY NIGHT AT BEDTIME FOR SLEEP Results No Known Results Summary Purpose [employer] Submission
== END 2019-09-25 11:33 | disposition home or self-care (01) ==
LOC: ENDO 08:48
PROVIDERS: ATTEND Internal Medicine
DX: Z12.11 Encounter for screening for malignant neoplasm of colon (principal); K59.39 Other megacolon; K57.30 Diverticulosis of large intestine without perforation or abscess without bleeding; I10 Essential (primary) hypertension; E11.9 Type 2 diabetes mellitus without complications; E78.5 Hyperlipidemia, unspecified; M19.90 Unspecified osteoarthritis, unspecified site; F31.9 Bipolar disorder, unspecified; Z90.49 Acquired absence of other specified parts of digestive tract; Z90.89 Acquired absence of other organs; Z98.51 Tubal ligation status; Z91.048 Other nonmedicinal substance allergy status; Z88.8 Allergy status to other drugs, medicaments and biological substances; Z88.1 Allergy status to other antibiotic agents; Z87.891 Personal history of nicotine dependence; Z79.899 Other long term (current) drug therapy; Z79.84 Long term (current) use of oral hypoglycemic drugs; Z86.39 Personal history of other endocrine, nutritional and metabolic disease; Z80.0 Family history of malignant neoplasm of digestive organs; Z83.6 Family history of other diseases of the respiratory system
CPT/HCPCS: 82962

== ENCOUNTER → 2019-09-30 | Outpatient (CLI) | payer MEDICARE, MEDICAID ==
[~2019-09-30] MED LIST changes: +GADOBUTROL 10 MMOL/10 ML (GADAVIST) VIAL IV ONE
[2019-09-30 08:50] LABS: BUN/CREATININE RATIO 14; CREATININE SERUM 0.86 MG/DL (0.60-1.30); GFR ESTIMATED > 60
--- NOTE | 2019-09-30 11:39 | Diagnostic Imaging Report ---
PROCEDURE: MR imaging of the brain with and without contrast. TECHNIQUE: Multiplanar, multisequence MR imaging of the brain was performed with and without contrast. INDICATION: Memory difficulty. No prior studies are available for comparison. Ventricles and sulci are within normal limits. There are periventricular and subcortical white matter signal abnormality is noted, likely on the basis of chronic microvascular ischemia. No diffusion restriction is identified. The normal expected flow-voids within the carotid siphons are seen. No acute intra-axial or extra-axial hemorrhage is detected. No abnormal enhancement is identified following contrast administration. The corpus callosum is unremarkable. The sella and parasellar structures are unremarkable. IMPRESSION: Changes of chronic microvascular ischemia. No acute intracranial process is detected. Dictated by: Dictated on workstation # [id number]
== END ==
LOC: RAD 09-23 08:31
PROVIDERS: ATTEND Nurse Practitioner Family
DX: Z12.11 Encounter for screening for malignant neoplasm of colon (principal); F07.0 Personality change due to known physiological condition; F39 Unspecified mood [affective] disorder; H53.133 Sudden visual loss, bilateral; I67.82 Cerebral ischemia; R41.3 Other amnesia
CPT/HCPCS: 36415; 70553; 82565; 84520

== ENCOUNTER 2020-06-15 14:38 | Emergency (ER) | payer MEDICARE, MEDICAID ==
[~2020-06-15] VITALS: Ht 157.4 cm; Wt 86.1 kg
[~2020-06-15 14:38] MED LIST changes: -GADOBUTROL 10 MMOL/10 ML (GADAVIST) VIAL IV ONE
[2020-06-15] MEDS ORDERED: LACTATED RINGERS 1,000 ML IV ONE (14:59)
[2020-06-15] MEDS ORDERED: FAMOTIDINE 20MG/2ML IV (PEPCID) IV STA (14:59)
[2020-06-15] MEDS ORDERED: ONDANSETRON 4 MG/2 ML (SDV) Z0FRAN IVP ONE (15:00)
[2020-06-15] MEDS ORDERED: ANTACID SUSP 30 ML UDC (MYLANTA) PO ONE (15:00)
[2020-06-15] MEDS ORDERED: LIDOCAINE 2% VISCOUS 15 ML UDC PO ONE (15:00)
--- NOTE | 2020-06-15 15:03 | ED GI ---
General Stated Complaint: V,MUSCLE WEAKNESS,COUGH POSS COVID Source of Information: Patient Exam Limitations: No Limitations History of Present Illness Date Seen by Provider: Jun 15, 2020 Time Seen by Provider: 14:44 Initial Comments The patient presents to ER by private conveyance from home with chief complaint that she's been having symptoms of nausea vomiting diarrhea without fever since Saturday, 3 days ago. No sick contacts. She is concerned she might have COVID-19. She has not called anybody until today and when Dr. Patel told her to come out to the ER concerned concerned she might have COVID. Allergies and Home Medications Allergies Coded Allergies: ciprofloxacin (Unverified Allergy, Mild, 11/28/08) adhesive (Unverified Allergy, 10/23/12) iodine (Unverified Allergy, HIVES, 10/23/12) Home Medications Cholecalciferol (Vitamin D3) 2,000 Unit Tab.chew, 2,000 UNIT PO DAILY, (Rep orted) Clonazepam 0.5 Mg Tablet, 0.5 MG PO BID, (Reported) Cyanocobalamin (Vitamin B-12) 1,000 Mcg/1 Ml Kit, 1,000 MCG IJ MONTHLY, (Reported) Divalproex Sodium 125 Mg Tablet.dr, 125 MG PO BID, (Reported) Fludrocortisone Acetate 0.1 Mg Tab, 0.1 MG PO BID, (Reported) Levothyroxine Sodium 50 Mcg Tablet, 50 MCG PO DAILY, (Reported) Liraglutide 0.6 Mg/0.1 Ml Pen.injctr, 1.8 MG SQ DAILY, (Reported) Magnesium Oxide 400 Mg Tablet, 400 MG PO DAILY, (Reported) Metformin HCl 500 Mg Tablet, 500 MG PO DAILY, (Reported) Metoprolol Succinate 50 Mg Tab.er.24h, 50 MG PO HS, (Reported) Oxybutynin Chloride 5 Mg Tablet, 5 MG PO TID, (Reported) Potassium Citrate 15 Meq Tab, 15 MEQ PO BID, (Reported) Simvastatin 10 Mg Tablet, 10 MG PO HS, (Reported) Venlafaxine HCl 75 Mg Tab, 75 MG PO HS, (Reported) Venlafaxine HCl 150 Mg Tab.er.24, 150 MG PO DAILY, (Reported) Patient Home Medication List Home Medication List Reviewed: Yes Review of Systems Review of Systems Constitutional: No chills, No diaphoresis EENTM: No Blurred Vision, No Double Vision Respiratory: Denies Cough; Shortness of Air Cardiovascular: Denies Chest Pain, Denies Lightheadedness Gastrointestinal: See HPI, Abdominal Pain; Denies Constipated; Diarrhea, Nausea, Vomiting Genitourinary: Denies Burning, Denies Discharge, Denies Drainage Musculoskeletal: No back pain, No joint pain All Other Systems Reviewed Negative Unless Noted: Yes Past Vqmjnxw-Enuhsy-Ehdonh Hx Patient Social History Alcohol Use: Denies Use Recreational Drug Use: No Smoking Status: Former Smoker Former Smoker, Quit: Sep 22, 2016 Recent Hopitalizations: No Immunizations Up To Date Tetanus Booster (TDap): Less than 5yrs Date of Pneumonia Vaccine: Mar 22, 2012 Date of Influenza Vaccine: May 22, 2019 Seasonal Allergies Seasonal Allergies: Yes Past Medical History Surgeries: Yes (HIATAL HERNIA, BILAT KNEE SCOPES, WRIST SX) Appendectomy, Gallbladder, Tubal Ligation Respiratory: No Cardiac: Yes Hypertension Neurological: No Reproductive Disorders: No Sexually Transmitted Disease: No Genitourinary: Yes Kidney Stones Gastrointestinal: No Musculoskeletal: No (arthritis) Arthritis Endocrine: Yes Diabetes, Non-Insulin dep HEENT: No Cancer: No Psychosocial: Yes Anxiety, Bipolar, Depression Integumentary: No Blood Disorders: No (GETS DVT EASILY) Physical Exam Vital Signs Vital Signs - First Documented 06/15/20 15:24 Temp 37.0 Pulse 104 Resp 22 B/P (MAP) 148/106 (120) Pulse Ox 94 O2 Delivery Room Air Capillary Refill : Height/Weight/BMI Height: 5'2.00" Weight: 190lbs. 0.0oz. 86.426644vp; 35.01 BMI Method:Stated General Appearance: WD/WN, mild distress HEENT: PERRL/EOMI; No pharynx normal (dry oral mucosa) Neck: full range of motion, normal inspection Respiratory: lungs clear, normal breath sounds, no respiratory distress, no accessory muscle use Cardiovascular: normal peripheral pulses, regular rate, rhythm Peripheral Pulses: 2+ Radial Pulses (R), 2+ Radial Pulses (L) Gastrointestinal: normal bowel sounds, non tender, soft Extremities: normal range of motion, non-tender, normal inspection, normal capi llary refill Neurologic/Psychiatric: alert, normal mood/affect, oriented x 3 Skin: normal color, warm/dry Progress/Results/Core Measures Results/Orders Lab Results Laboratory Tests Test 06/15/20 14:55 06/15/20 15:05 Range/Units Blood Gas Puncture Site R RAD Blood Gas Patient Temperature 98.6 Arterial Blood pH 7.51 H 7.37-7.43 Arterial Blood Partial Pressure CO2 27 L 35-45 MMHG Arterial Blood Partial Pressure O2 110 H 79-93 MMHG Arterial Blood HCO3 21 L 23-27 MMOL/L Arterial Blood Total CO2 21.9 21.0-31.0 MMOL/L Arterial Blood Oxygen Saturation 99 94-100 % Arterial Blood Base Excess -1.6 -2.5-2.5 MMOL/L Rylan Test YES-POS Blood Gas Ventilator Setting NO Blood Gas Inspired Oxygen ROOM AIR White Blood Count 13.9 H 4.3-11.0 10^3/uL Red Blood Count 5.47 H 3.80-5.11 10^6/uL Hemoglobin 17.4 H 11.5-16.0 g/dL Hematocrit 52 35-52 % Mean Corpuscular Volume 95 80-99 fL Mean Corpuscular Hemoglobin 32 25-34 pg Mean Corpuscular Hemoglobin Concent 33 32-36 g/dL Red Cell Distribution Width 13.7 10.0-14.5 % Platelet Count 238 130-400 10^3/uL Mean Platelet Volume 11.0 9.0-12.2 fL Immature Granulocyte % (Auto) 1 % Neutrophils (%) (Auto) 74 42-75 % Lymphocytes (%) (Auto) 19 12-44 % Monocytes (%) (Auto) 6 0-12 % Eosinophils (%) (Auto) 0 0-10 % Basophils (%) (Auto) 0 0-10 % Neutrophils # (Auto) 10.2 H 1.8-7.8 10^3/uL Lymphocytes # (Auto) 2.7 1.0-4.0 10^3/uL Monocytes # (Auto) 0.8 0.0-1.0 10^3/uL Eosinophils # (Auto) 0.0 0.0-0.3 10^3/uL Basophils # (Auto) 0.1 0.0-0.1 10^3/uL Immature Granulocyte # (Auto) 0.1 0.0-0.1 10^3/uL Sodium Level 140 135-145 MMOL/L Potassium Level 3.7 3.6-5.0 MMOL/L Chloride Level 97 L 98-107 MMOL/L Carbon Dioxide Level 24 21-32 MMOL/L Anion Gap 19 H 5-14 MMOL/L Blood Urea Nitrogen 17 7-18 MG/DL Creatinine 1.03 0.60-1.30 MG/DL Estimat Glomerular Filtration Rate 55 BUN/Creatinine Ratio 17 Glucose Level 146 H 70-105 MG/DL Calcium Level 10.1 8.5-10.1 MG/DL Corrected Calcium 9.8 8.5-10.1 MG/DL Total Bilirubin 0.7 0.1-1.0 MG/DL Aspartate Amino Transf (AST/SGOT) 46 H 5-34 U/L Alanine Aminotransferase (ALT/SGPT) 55 0-55 U/L Alkaline Phosphatase 80 40-136 U/L Total Protein 7.5 6.4-8.2 GM/DL Albumin 4.4 3.2-4.5 GM/DL Lipase 39 8-78 U/L Micro Results Microbiology 06/15/20 Influenza Types A,B Antigen ([place]) - Final, Complete My Orders Orders - TUAN RM Arterial Blood Gas (06/15/20 14:56) Chest 1 View, Ap/Pa Only (06/15/20 14:59) Ed Iv/Invasive Line Start (06/15/20 14:59) Lactated Ringers (Lr 1000 Ml Iv Solution (06/15/20 14:59) Ondansetron Injection (Zofran Injectio (06/15/20 15:00) Lidocaine 2% Viscous 15 Ml (Xylocaine Vi (06/15/20 15:00) Antacid Suspension (Mylanta Suspension (06/15/20 15:00) Famotidine Injection (Pepcid Injection) (06/15/20 14:59) Cbc With Automated Diff (06/15/20 14:59) Comprehensive Metabolic Panel (06/15/20 14:59) Lipase (06/15/20 14:59) Influenza A And B Antigens (06/15/20 15:03) Coronavirus Sars-Cov-2 So 2018 (06/15/20 15:03) Medications Given in ED Current Medications Medications Dose Ordered Sig/Claire Route Start Time Stop Time Status Last Admin Dose Admin Al Hydrox/Mg Hydrox/Simethicone 30 ml ONCE ONCE PO 06/15/20 15:00 06/15/20 15:02 DC 06/15/20 15:16 30 ML Lactated Ringer's 1,000 ml @ 0 mls/hr Q0M ONCE IV 06/15/20 14:59 06/15/20 15:02 DC 06/15/20 15:12 1,000 MLS/HR Lidocaine HCl 15 ml ONCE ONCE PO 06/15/20 15:00 06/15/20 15:02 DC 06/15/20 15:16 15 ML Ondansetron HCl 8 mg ONCE ONCE IVP 06/15/20 15:00 06/15/20 15:02 DC 06/15/20 15:10 8 MG Vital Signs/I&O 06/15/20 15:24 Temp 37.0 Pulse 104 Resp 22 B/P (MAP) 148/106 (120) Pulse Ox 94 O2 Delivery Room Air Progress Progress Note #1: Time: 15:11 Progress Note mild dehydration probably a viral gastroenteritis. We'll test her for COVID and influenza and get a chest x-ray as well as give her a liter fluids and some basic labs to assess her electrolytes and kidney function. She's not having any urinary symptoms. She will not require hospitalization at this time. We'll give her some Zofran and a GI cocktail as well as Pepcid for her epigastric discomfort. Progress Note #2: Time: 15:41 Progress Note Patient's blood pressure is marginally elevated and when she got here. I suspect this is related to her anxiety. She has a history of pots and is on fludrocortisone so antihypertensives are not necessary. We'll offer her some anxiolytics if they do not improve in time. Progress Note #3: Time: 15:51 Progress Note The patient's blood pressure is going down. Suspect her blood pressure is related to her anxiety just like her ABG findings. She is no longer nauseated. Her fluids are three fourths of the way done. We'll let her finish those and go home with some nausea medicine. Return precautions discussed. Diagnostic Imaging Diagonstic Imaging: Xray Plain Films/CT/US/NM/MRI: chest Comments NAME: FRANCISCO JAVIER COSME MED REC#: [id number] PT STATUS: REG ER : 1960 PHYSICIAN: TUAN RM MD ADMIT DATE: 06/15/20/ER Draft Date of Exam:06/15/20 CHEST 1 VIEW, AP/PA ONLY INDICATION: SOA. COMPARISON: None FINDINGS: Single frontal view of the chest demonstrates normal heart size and pulmonary vascularity. The lungs are well aerated and clear. No large pleural effusion or pneumothorax is seen. The visualized osseous structures show no acute abnormalities. There is calcified aortic atherosclerosis. IMPRESSION: 1. No acute cardiopulmonary process. Dictated on workstation # [id number] Dict: 06/15/20 1529 Trans: 06/15/20 1532 [facility] [id number] Interpreted by: RAPHAEL TREVINO MD Electronically signed by: Reviewed: Reviewed by Me Departure Impression Primary Impression: Gastroenteritis and colitis, viral Additional Impression: Anxiety Disposition: 01 HOME, SELF-CARE Condition: Improved Departure-Patient Inst. Decision time for Depature: 15:52 Referrals: NELLY PATEL DO (PCP) Primary Care Physician DENNY PATEL DNP (Family) Primary Care Physician Patient Instructions: Viral Gastroenteritis, Adult (DC) Add. Discharge Instructions: Drink plenty of fluids especially sports drinks such as G2 or other sugar-free drinks. Tylenol and ibuprofen for pain. Maalox, Tums, Mylanta, Pepcid for stomach ache. Ondansetron one tablet every 6 hours as necessary for nausea and/or vomiting. Imodium 2 tablets followed by one tablet every 4 hours afterwards if you're still having watery, loose diarrhea. Return to the ER if you're having difficulty keeping fluids down, intractable pain or other worrisome symptoms. Expect your symptoms to improve over the next 3-5 days. Someone will call you with results of your COVID-19 testing within the next week. Scripts Ondansetron (Ondansetron Odt) 4 Mg Tab.rapdis 4 MG PO Q6H PRN for NAUSEA/VOMITING, #15 TAB 0 Refills Prov: TUAN RM 06/15/20 TUAN RM Jun 15, 2020 15:03
[2020-06-15 15:09] LABS: ABG BASE EXCESS -1.6 MMOL/L (-2.5-2.5); ABG OXYGEN SATURATION 99 % (94-100); ABG PCO2 27 MMHG (35-45); ABG PH 7.51 (7.37-7.43); ABG PO2 110 MMHG (79-93); ABG TCO2 21.9 MMOL/L (21.0-31.0)
[2020-06-15 15:12] LABS: ALLENS TEST YES-POS; INSPIRED O2 ROOM AIR; PATIENT TEMP 98.6; VENTILATOR NO
[2020-06-15 15:14] LABS: BASOPHILS # (AUTO) 0.1 10^3/uL (0.0-0.1); BASOPHILS % (AUTO) 0 % (0-10); EOSINOPHILS % (AUTO) 0 % (0-10); HEMATOCRIT 52 % (35-52); HEMOGLOBIN 17.4 g/dL (11.5-16.0); LYMPHOCYTES # (AUTO) 2.7 10^3/uL (1.0-4.0); LYMPHOCYTES % (AUTO) 19 % (12-44); MEAN CORPUSCULAR HEMOGLOBIN 32 pg (25-34); MEAN CORPUSCULAR HGB CONC 33 g/dL (32-36); MEAN CORPUSCULAR VOLUME 95 fL (80-99); MONOCYTES # (AUTO) 0.8 10^3/uL (0.0-1.0); MONOCYTES % (AUTO) 6 % (0-12); NEUTROPHILS # (AUTO) 10.2 10^3/uL (1.8-7.8); NEUTROPHILS % (AUTO) 74 % (42-75); PLATELET COUNT 238 10^3/uL (130-400); WHITE BLOOD COUNT 13.9 10^3/uL (4.3-11.0)
[2020-06-15 15:27] LABS: ALBUMIN 4.4 GM/DL (3.2-4.5); POTASSIUM 3.7 MMOL/L (3.6-5.0)
[2020-06-15 15:29] LABS: CALCIUM 10.1 MG/DL (8.5-10.1)
[2020-06-15 15:30] LABS: TOTAL PROTEIN 7.5 GM/DL (6.4-8.2)
[2020-06-15 15:31] LABS: BILIRUBIN,TOTAL 0.7 MG/DL (0.1-1.0)
[2020-06-15 15:33] LABS: CREATININE SERUM 1.03 MG/DL (0.60-1.30)
--- NOTE | 2020-06-15 15:33 | Diagnostic Imaging Report ---
INDICATION: SOA. COMPARISON: None FINDINGS: Single frontal view of the chest demonstrates normal heart size and pulmonary vascularity. The lungs are well aerated and clear. No large pleural effusion or pneumothorax is seen. The visualized osseous structures show no acute abnormalities. There is calcified aortic atherosclerosis. IMPRESSION: 1. No acute cardiopulmonary process. Dictated by: Dictated on workstation # [id number]
[2020-06-15] MEDS ORDERED: ONDA4TAB11 PO (15:57)
[2020-06-15 16:24] VITALS: BP 179/90
== END 2020-06-15 16:24 | disposition home or self-care (01) ==
LOC: EDUNIT# 14:38 → ER 14:41
DX: A08.4 Viral intestinal infection, unspecified (principal); F41.9 Anxiety disorder, unspecified; I10 Essential (primary) hypertension; E11.9 Type 2 diabetes mellitus without complications; F31.9 Bipolar disorder, unspecified; Z20.828 Contact with and (suspected) exposure to other viral communicable diseases; Z87.891 Personal history of nicotine dependence; Z79.84 Long term (current) use of oral hypoglycemic drugs; Z88.1 Allergy status to other antibiotic agents; Z91.041 Radiographic dye allergy status
CPT/HCPCS: 71045; 80053; 82805; 83690; 85025; 87804; 99285; U0002; 36415; 87635

== ENCOUNTER → 2020-09-15 | Outpatient (CLI) | payer MEDICARE, MEDICAID ==
[~2020-09-15] MED LIST changes: +ONDA4TAB11 PO
--- NOTE | 2020-09-15 14:03 | Diagnostic Imaging Report ---
INDICATION: Routine screening. COMPARISON: No prior mammograms are available for comparison. 2-D and 3-D bilateral screening mammography was performed with CAD. Scattered fibroglandular densities are identified bilaterally. Right breast is unremarkable. There is a slightly irregular density in the medial left breast at mid depth. Additional views are recommended. No suspicious microcalcifications are seen. Axillae are unremarkable. IMPRESSION: BI-RADS 0 Left breast density. Additional views are recommended for further evaluation. ACR BI-RADS Category 0: Incomplete. (Needs additional imaging evaluation). Result letter will be mailed to the patient. Note: At least 10% of breast cancer is not imaged by mammography. Dictated by: Dictated on workstation # [id number]
== END ==
LOC: RAD 09:46
PROVIDERS: ATTEND Nurse Practitioner Family
DX: Z12.31 Encounter for screening mammogram for malignant neoplasm of breast (principal)
CPT/HCPCS: 77063; 77067

== ENCOUNTER → 2020-09-28 | Outpatient (CLI) | payer MEDICARE, MEDICAID ==
--- NOTE | 2020-09-28 13:48 | Diagnostic Imaging Report ---
Indication: Left breast density. Patient presents for additional views. Correlation is made with screening mammogram from 09/15/2020. Unilateral left 2-D and 3-D diagnostic mammography was performed. This includes spot compression CC and MLO views as well as conventional 90 degrees lateral views. Additional views show some minimal residual density in the inner left breast. This may represent fibroglandular tissue. Even so, ultrasound is recommended. No other abnormalities are seen. IMPRESSION: BI-RADS 0 Minimal residual density after additional views of the medial left breast 8 cm from the nipple. Further evaluation with ultrasound is recommended and will be performed today. ACR BI-RADS Category 0: Incomplete. (Needs additional imaging evaluation). Result letter will be mailed to the patient. Note: At least 10% of breast cancer is not imaged by mammography. Dictated by: Dictated on workstation # [id number]
--- NOTE | 2020-09-28 14:19 | Diagnostic Imaging Report ---
INDICATION: Left breast density. Correlation is made with diagnostic mammogram earlier same day and screening mammogram from 09/15/2020. Sonographic interrogation of the inner left breast was performed. No sonographic abnormality is seen. No solid or cystic masses detected. IMPRESSION: BI-RADS Category 3 No sonographic abnormality is identified to account for the mammographic density. Even so, follow-up left mammogram in 6 months is recommended to show continued stability. ACR BI-RADS Category 3: Probably benign findings. Dictated by: Dictated on workstation # [id number]
== END ==
LOC: RAD 13:15
PROVIDERS: ATTEND Nurse Practitioner Family
DX: R92.2 Inconclusive mammogram (principal)
CPT/HCPCS: 76642; 77065; G0279

== ENCOUNTER → 2021-03-29 | Outpatient (CLI) | payer MEDICAID, MEDICARE ==
--- NOTE | 2021-03-29 14:30 | Diagnostic Imaging Report ---
INDICATION: Six-month followup left breast density. COMPARISON: Correlation is made with the prior mammograms from 09/15/2020 and 02/18/2009. TECHNIQUE: Unilateral left 2D and 3D diagnostic mammography was performed with CAD. FINDINGS: The density in the medial left breast on the CC view appears stable. No new mass is detected. There are no malignant-appearing microcalcifications. The left axilla is unremarkable. IMPRESSION: Stable left breast density. The patient should return in 6 months for additional followup. ACR BI-RADS Category 3: Probably benign findings. Result letter will be mailed to the patient. Note: At least 10% of breast cancer is not imaged by mammography. Dictated by: Dictated on workstation # [id number]
== END ==
LOC: RAD 12:45
PROVIDERS: ATTEND Nurse Practitioner Family
DX: R92.2 Inconclusive mammogram (principal)
CPT/HCPCS: 77065; G0279

== ENCOUNTER → 2022-01-29 | Outpatient (CLI) | payer MEDICAID ==
--- NOTE | 2022-01-29 10:54 | Diagnostic Imaging Report ---
INDICATION: Routine screening. COMPARISON: 09/15/2020. TECHNIQUE: 2D and 3D bilateral screening mammography was performed with CAD. FINDINGS: Scattered fibroglandular densities are identified bilaterally. The overall breast parenchymal pattern appears stable. The density noted in the medial left breast persists but shows no significant change. This may represent fibroglandular tissue. No discrete mass or malignant-appearing microcalcifications are seen. The axillae are unremarkable. IMPRESSION: No mammographic features suspicious for malignancy are identified. ACR BI-RADS Category 1: Negative. Result letter will be mailed to the patient. Note: At least 10% of breast cancer is not imaged by mammography. Dictated by: Dictated on workstation # [id number]
== END ==
LOC: RAD 08:26
PROVIDERS: ATTEND Nurse Practitioner Family
DX: Z12.31 Encounter for screening mammogram for malignant neoplasm of breast (principal)
CPT/HCPCS: 77063; 77067